=== PATIENT | male | born 1950 | race Caucasian/White ===

== ENCOUNTER 2022-12-09 09:18 | Outpatient (CLI) | payer BC, SELFPAY ==
[2022-12-09 13:59] LABS: Chloride* 104 mmol/L (96-114); Potassium* 4.6 mmol/L (3.6-5.1); Sodium* 136 mmol/L (135-149)
[2022-12-09 14:01] LABS: Alanine Aminotransferase* 43 U/L (4-50); Carbon Dioxide* 28 mmol/L (20-32); Cholesterol* 146 mg/dL (90-199); Estimated Glomerular Filt Rate 80 ml/min
[2022-12-09 14:02] LABS: Blood Urea Nitrogen* 17 mg/dL (7-30); Calcium* 9.2 mg/dL (8.4-10.6); Glucose* 257 mg/dL (60-115); HDL Cholesterol* 94 mg/dL (>=40); LDL Cholesterol Calculated 35 mg/dL (<100); Triglycerides* 83 mg/dL (40-149)
== END 2022-12-09 09:19 | disposition home or self-care (01) ==
PROVIDERS: PCP Family Medicine; Visit Provider Family Medicine
DX: Z00.00 Encounter for general adult medical examination without abnormal findings (principal); I10 Essential (primary) hypertension; E78.5 Hyperlipidemia, unspecified; E11.9 Type 2 diabetes mellitus without complications; K76.0 Fatty (change of) liver, not elsewhere classified; N40.0 Benign prostatic hyperplasia without lower urinary tract symptoms
CPT/HCPCS: 80048; 80061; 84460

== ENCOUNTER 2023-08-14 07:02 | Outpatient (CLI) | payer MEDICARE, BC, SELFPAY ==
--- NOTE | 2023-08-14 07:15 | CRLHL7_ITS ---
For Patients: As a result of the Century Cures Act, medical imaging exams and procedure reports are released immediately into your electronic medical record. You may view this report before your referring provider. If you have questions, please contact your health care provider. Indication: Pain in right knee Technique: Multiplanar multi sequence MRI of the right knee without contrast Comparison: Radiographs 07/29/2023 Findings: Image quality degraded by motion artifact. Medial compartment: Medial meniscus: Intrasubstance degeneration with hyperintense signal extending to the superior articular surface at the junction of the body and anterior horn, compatible with a degenerative tear. Articular cartilage: No chondral defects Lateral compartment: Lateral meniscus: Intrasubstance degeneration and complex but predominantly horizontal longitudinal tear of the body segment with extent to the anterior horn. Articular cartilage: Mild surface irregularity of the articular cartilage in the lateral compartment (grade 2). Patellofemoral compartment: Mild diffuse chondral thinning with areas of surface irregularity, including use of grade 2 and 3 chondral fissuring over the medial patellar facet. Ligaments: Hyperintense thickening of the ACL in a pattern compatible with mucoid degeneration. PCL intact. MCL intact. Mild degeneration of the femoral insertions of the fibular collateral ligament and popliteus tendon. Extensor mechanism: Distal quadriceps tendon and patellar tendon intact. Medial and lateral patellar restraints intact. No significant patellar subluxation. Joint spaces: Moderate joint effusion with mild synovitis. No intra-articular bodies. Bones and soft tissues: No fracture or osteonecrosis. No Del Rio`s cyst. Mild nonspecific prepatellar subcutaneous edema Impression: 1. Degenerative-type tears of the medial and lateral menisci. 2. 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 3. Mucoid degeneration of the ACL. 4. Moderate knee joint effusion with mild synovitis. Dictated by Juan Pablo Bauer MD @ 08/14/2023 12:51:33 PM (Electronically Signed)
== END 2023-08-14 07:03 | disposition home or self-care (01) ==
LOC: MRI 07:04
PROVIDERS: PCP Family Medicine; Visit Provider Family Medicine
DX: M25.561 Pain in right knee (principal); S83.281A Other tear of lateral meniscus, current injury, right knee, initial encounter; S83.241A Other tear of medial meniscus, current injury, right knee, initial encounter; M25.461 Effusion, right knee; M22.41 Chondromalacia patellae, right knee
CPT/HCPCS: 73721

== ENCOUNTER 2023-09-25 08:16 | Outpatient (CLI) | payer MEDICARE, BC, SELFPAY | END 2023-09-25 08:17 | disposition home or self-care (01) | PROVIDERS: PCP Family Medicine; Visit Provider Family Medicine | DX: I10 Essential (primary) hypertension (principal); E11.9 Type 2 diabetes mellitus without complications; Z79.4 Long term (current) use of insulin | CPT/HCPCS: 80048; 85025 ==

== ENCOUNTER 2023-10-09 09:45 | Day surgery (SDC) | payer MEDICARE, BC, SELFPAY ==
[2023-10-09] VITALS (13 sets, daily range): BP systolic 102–158; BP diastolic 66–95; PULSE 56–64; RESP 14–20; TEMP 36.3–36.6; O2SAT 93–99; BMI 32.5
[2023-10-09] MEDS: LACTATED RINGERS 1000 ML 1,000 ML 100 ML IV (10:10)
[2023-10-09] MEDS: SODIUM CHLORIDE 0.9 % (FLUSH) 10 ML SYRINGE IVF (10:10)
[2023-10-09] MEDS: CEFAZOLIN 2 GM INJ IVP (11:57)
--- NOTE | 2023-10-09 12:05 | SUR.OPER ---
PATIENT QUESTIONS ANSWERED SATISFACTORILY PREOPERATIVELY.? PATIENT BROUGHT TO OR #2 PER CART.? Patient positioned supine on OR #2 bed.? The perioperative?team supported arms bilaterally on arm boards.? Final approval of positioning by surgeon.? CONTINUOUS IRRIGATION OF THE RIGHT KNEE DURING THE PROCEDURE WITH NACL.
[2023-10-09] MEDS: BUPIVACAINE 0.25% 30 ML INJECTION (12:26)
--- NOTE | 2023-10-09 12:39 | P.ORPRC_ITS ---
Procedure Note Date of procedure: 10/09/23 Procedure: PREOPERATIVE DIAGNOSIS: Right knee lateral and medial meniscus tear POSTOPERATIVE DIAGNOSIS: Right knee lateral meniscus tear NAME OF OPERATION: Right knee arthroscopic partial lateral meniscectomy SURGEON: Josh Rueda MD DIRECTOR OF EVENT SALES: Kiara Youngblood PA-C ANESTHESIA: Spinal ESTIMATED BLOOD LOSS: 0 mL COMPLICATIONS: None SPECIMENS: None DRAINS: None PREOPERATIVE ANTIBIOTICS: Ancef 2 gram INDICATIONS: The patient is a 72-year-old with a history of right knee lateral pain. MRI scan is consistent with a medial and lateral meniscus tear. Despite appropriate nonoperative management, including activity modification, antiinflammatories, [id number] pain medication, bracing, physical therapy, and injections they continue to have pain and disability. Operative intervention was offered. The risks, benefits and expected outcomes were discussed in detail. These included but were not limited to: Infection, bleeding, injury to blood vessel or nerve, venous thromboembolism. All questions were answered to their satisfaction. PROCEDURE: Spinal anesthesia was administered. The patient was placed supine on the operating room table. The right lower extremity was prepped and draped in the usual sterile fashion. The limb was exsanguinated with the Gerson bandage. The pneumatic tourniquet was inflated to 300 mmHg. A standard anterolateral portal was established. The arthroscope was introduced. The working portal was established anteromedially. Diagnostic arthroscopy was performed with findings as follows: The suprapatellar pouch is normal. Articular surface on the patella shows focal grade 3 loom changeover operator the median ridge. Articular surface on the trochlea diffuse grade 2/3 change. The medial gutter is normal. The medial compartment shows grade 1/2 change on both sides of the joint. The medial meniscus is normal, without an obvious tear. The notch shows the ACL to be intact. The lateral compartment shows a focal area of grade 2/3 change on the lateral femoral condyle, diffuse grade 2 change on the lateral tibial plateau. The lateral meniscus has a complex degenerative tear of the midbody, into the anterior horn. This primarily consists of superior articular surface degenerative fraying and tearing with more substantial horizontal cleavage tearing. The lateral gutter is normal. The midbody and anterior horn of the lateral meniscus were debrided with an angled basket and lisa through both portals, taken to a stable base. Unstable chondral flaps on the patella were debrided with the shaver. Arthroscopic instruments were removed, the portal sites were Steri-Stripped closed, the knee was infiltrated with 30 mL of 0.25% Marcaine without epinephrine. A dry dressing was applied, the tourniquet was released. Sponge and needle counts were correct x 2. The patient tolerated the procedure well. There were no apparent complications. They were carefully transferred to the hospital bed and taken to the postanesthesia care unit in satisfactory condition. PLAN: The patient will be discharged to home. They may weightbear as tolerates. Range of motion will be unrestricted. They will follow up in the office next week for a wound check.
--- NOTE | 2023-10-09 12:45 | W.ANESCHARGE ---
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
--- NOTE | 2023-10-09 12:49 | W.ANESCHARGE ---
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
== END 2023-10-09 14:34 | disposition home or self-care (01) ==
PROVIDERS: PCP Family Medicine; Visit Provider Orthopaedic Surgery
PROC: (CPT 29870; principal; 2023-10-09 11:30)
DX: M23.241 Derangement of anterior horn of lateral meniscus due to old tear or injury, right knee (principal)
CPT/HCPCS: 29881; 01400; 82962; 99100; J0665; J0690; J1100; J2250; J2405; J2704; J3010; J7120

== ENCOUNTER 2023-12-25 07:44 | Outpatient (CLI) | payer MEDICARE, BC, SELFPAY ==
--- NOTE | 2023-12-25 09:56 | P.ANES_ITS ---
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
--- NOTE | 2023-12-25 10:14 | W.ANESCHARGE ---
Anesthesia Charges Start Date/Time Anesthesia Start Date: 12/25/23 Anesthesia Start Time: 08:48 Stop Date/Time Anesthesia Stop Date: 12/25/23 Anesthesia Stop Time: 09:55 Summary Extremes of Age - Over 70 or under 1: MDA
== END 2023-12-25 07:45 | disposition home or self-care (01) ==
LOC: OP CLINIC 07:44
PROVIDERS: PCP Family Medicine; Visit Provider Surgery
DX: Z12.11 Encounter for screening for malignant neoplasm of colon (principal); K63.5 Polyp of colon; Z86.010 Personal history of colon polyps
CPT/HCPCS: 00811; 45381; 45385; 88305; 99100; J2704

== ENCOUNTER 2024-01-28 08:42 | Outpatient (CLI) | payer MEDICARE, BC, SELFPAY ==
--- OUTSIDE RECORDS SUMMARY | 2024-01-28 08:46 | XMS_ITS | Referral Summary ---
Author Name Unknown Organization [facility] Address [address] [place] [address]. [place] [address] Care Team Providers Care Manager Laboratory Name Role Phone Lamberto Padilla Primary Care Provider [phone] Allergies Active Allergy Reactions Criticality Noted Date Comments Jett Inhibitors Cough 05/10/2022 Medications Medication Sig Dispensed Refills Start Date End Date Status aspirin 81 MG EC tablet Take 81 mg by mouth daily Active atorvastatin (LIPITOR) 40 MG tablet Take 40 mg by mouth daily Active glimepiride (AMARYL) 4 MG tablet Take 4 mg by mouth every morning (before breakfast) 2 tabs Active losartan (COZAAR) 100 MG tablet Take 100 mg by mouth daily Active metFORMIN (GLUCOPHAGE) 500 MG tablet Take 500 mg by mouth daily (with breakfast) 4 tabs ( 2,000 mg) Active multivitamin w/minerals (THERA-VIT-M) tablet Take 1 tablet by mouth daily Active sertraline (ZOLOFT) 100 MG tablet Take 100 mg by mouth daily 2 tabs Active phenazopyridine (PYRIDIUM) 100 MG tabletIndications:H istory of biopsy of bladder Take 2 tablets (200 mg) by mouth 3 times daily as needed for urinary tract discomfort 9 tablet 05/13/2022 Active celecoxib (CELEBREX) 100 MG capsuleIndications: History of biopsy of bladder Take 1 capsule (100 mg) by mouth 2 times daily 14 capsule 05/13/2022 Active Active Problems Problem Noted Date Diagnosed Date History of biopsy of bladder 05/13/2022 Social History Tobacco Use Types Packs/Day Years Used Date Smoking Tobacco: Some Days Smokeless Tobacco: Never Alcohol Use Standard Drinks/Week Comments Yes 0 (1 standard drink = 0.6 oz pur e alcohol) 4-5 drinks 2 days per week Adolescent Education Answer Date Record ed Getting School Help Needed Not on file 07/13 Sex and Gender Information Value Date Recorded Sex Assigned at Not on file Gender Identity Not on file Sexual Orientation Not on file Last Filed Vital Signs Vital Sign Reading Time Taken Comments Blood Pressure 126/72 05/13/2022 9:38 AM CDT Pulse 65 05/13/2022 9:38 AM CDT Temperature 36.7 ??C (98 ??F) 05/13/2022 9:38 AM CDT Respiratory Rate 14 05/13/2022 9:38 AM CDT Oxygen Saturation 96% 05/13/2022 9:38 AM CDT Inhaled Oxygen Concentration - - Weight 96.7 kg (213 lb 1.6 oz) 05/13/2022 5:53 A M CDT Height 175.3 cm (5' 9) 05/13/2022 5:53 AM CDT Body Mass Index 31.47 05/13/2022 5:53 AM CDT Plan of Treatment Not on file Procedures Procedure Name Priority Date/Time Associated Diagnosis Comments GLUCOSE STAT 05/13/2022 6:02 AM CDT from Last 3 Months or Most Recently Relevant to Health Maintenance Results * (ABNORMAL) Glucose (05/13/2022 6:02 AM CDT) [facility] Signature Glucose 192(H) 70 - 99 mg/dL 05/13/2022 7:05 AM CDT LABORATORY Patient Fasting > 8hrs? Yes 05/13/2022 7:05 AM CDT LABORATORY Blood STRUCTURE OF RIGHT UPPER LIMB / Unknown Venipuncture / Unknown 05/13/2022 6:02 AM CDT 05/13/2022 6:25 AM CDT Mamadou Abarca MD LAB - BLOOD ORDERABL ES LABORATORY [facility] [address], [address] [place] [address], [place] [phone] from Last 3 Months or Most Recently Relevant to Health Maintenance Care Teams Manager Laboratory Relationship Specialty Start Date End Date Lamberto Padilla [address] [place], [place] [id number] PCP - General Family Medicine 04/23/22
--- OUTSIDE RECORDS SUMMARY | 2024-01-28 08:46 | XMS_ITS | Clinical Summary ---
Author Name Unknown Organization [facility] Address [address] [place] [address]. [place] [address] Care Team Providers Care Criminal Justice Faculty Name Role Phone Lamberto Padilla Primary Care Provider [phone] Allergies Active Allergy Reactions Criticality Noted Date [...] 05/13/2022 5:53 AM CDT Plan of Treatment Health Maintenance Due Date Last Done Comments ADVANCE CARE PLANNING 1950 ANNUAL REVIEW OF HM ORDERS 1950 CT COLONOGRAPHY 1951 FIT 1951 FLEX SIG 1951 LIPID 1951 sDNA (Cologuard) 1951 COLONOSCOPY 1961 COLORECTAL CANCER SCREENING 1961 HEPATITIS C SCREENING 1969 LUNG CANCER SCREENING 2001 RSV VACCINE ( & 60+) (1 - 1-dose 60+ series) 2011 FALL RISK ASSESSMENT 2016 MEDICARE ANNUAL WELLNESS VISIT 2016 COVID-19 Vaccine (2022- season) 2023 09/04/2022, 02/23/2022, 07/03/2021, Additional history exists INFLUENZA VACCINE (#1) 2023 , 08/06/2021, 08/06/2021, Additional history exists PHQ-2 (once per calendar year) 2023 GLUCOSE 05/13/2025 05/13/2022 DTAP/TDAP/TD IMMUNIZATION (2 - Td or Tdap) 11/06/2025 11/06/2015, 08/13/2005 Pneumococcal Vaccine: 65+ Years Completed 12/07/2018, 06/23/2017 ZOSTER IMMUNIZATION Completed 09/20/2020, 07/22/2020, 05/15/2012 HPV IMMUNIZATION Aged Out No longer e ligible based on patient's age to complete this topic IPV IMMUNIZATION Aged Out No longer e ligible based on patient's age to complete this topic MENINGITIS IMMUNIZATION Aged Out No l onger eligible based on patient's age to complete this topic RSV MONOCLONAL ANTIBODY Aged Out No l onger eligible based on patient's age to complete this topic Procedures Procedure Name Priority Date/Time Associated Diagnosis Comments GLUCOSE STAT 05/13/2022 6:02 AM CDT from Last 3 Months or Most Recently Relevant to Health Maintenance Results * (ABNORMAL) Glucose (05/13/2022 6:02 AM CDT) Glucose 192(H) 70 - 99 mg/dL 05/13/2022 7:05 AM CDT LABORATORY Patient Fasting > 8hrs? Yes 05/13/2022 7:05 AM CDT LABORATORY Blood STRUCTURE OF RIGHT UPPER LIMB / Unknown Venipuncture / Unknown 05/13/2022 6:02 AM CDT 05/13/2022 6:25 AM CDT Mamadou Abarca MD LAB - BLOOD ORDERABL ES LABORATORY [facility] [address], [address] [place] [address], [facility] [phone] from Last 3 Months or Most Recently Relevant to Health Maintenance Care Teams Criminal Justice Faculty Relationship Specialty Start Date End Date Lamberto Padilla [address] [place] [address] PCP - General Family Medicine 04/23/22
--- OUTSIDE RECORDS SUMMARY | 2024-01-28 08:46 | XMS_ITS | Clinical Summary ---
Author Name Unknown Organization [employer] Address [place], [place] [address] Care Team Providers Care Ice Cream Server Name Role Phone Unavailable Primary Care Provider Unavailabl e Allergies Active Allergy Reactions Criticality Noted Date Comments Jett Inhibitors Cough 12/15/2008 Medications Medication Sig Dispensed Refills Start Date End Date Status MULTIVITAMIN TAB take 1 tablet by oral route once daily with food 0 02/05/2007 Active ASPIRIN 81 MG TAB, DELAYED RELEASEIndications:R outine general medical examination at a health care facility take 1 tablet (81mg) by oral route once daily 0 02/05/2007 Active blood-glucose meterIndications:Unc ontrolled type 2 diabetes mellitus without complication, without long-term current use of insulin Dispense meter, test strips, lancets covered by pt ins. E11.65 NIDDM type II, uncontrolled - Test 2 times/day. Reason: High A1C 1 Device 11/21/2016 Active lancetsIndications:U ncontrolled type 2 diabetes mellitus without complication, without long-term current use of insulin Dispense item covered by pt ins. E11.65 NIDDM type II, uncontrolled - Test 2 times/day. Reason: High A1C 100 Each 12 12/07/2018 Active sertraline (ZOLOFT) 100 mg tabletIndications:Dy sthymia Take 2 Tablets (200 mg) by mouth once daily. 180 tablet. 3 12/06/2021 Active metFORMIN (GLUCOPHAGE XR) 500 mg Extended-Release tabletIndications:Co ntrolled type 2 diabetes mellitus without complication, without long-term current use of insulin (HC) Take 4 Tablets (2,000 mg) by mouth once daily. 360 tablet. 3 12/06/2021 Active losartan (COZAAR) 100 mg tabletIndications:Es sential hypertension Take 1 Tablet (100 mg) by mouth once daily. 90 Tablet 3 12/06/2021 Active glimepiride (AMARYL) 4 mg tabletIndications:Co ntrolled type 2 diabetes mellitus without complication, without long-term current use of insulin (HC) Take 2 Tablets (8 mg) by mouth once daily with a meal. 180 tablet. 3 12/06/2021 Active blood sugar diagnostic (CenturyLinkTouch Ultra Test) stripIndications:Con trolled type 2 diabetes mellitus without complication, without long-term current use of insulin (HC) TEST ONCE A DAY 100 Each 3 12/06/2021 Active varenicline (CHANTIX DOSEPAK) 0.5 mg (11)- 1 mg (42) tabletIndications:To bacco use Days 1-3 take 0.5mg once daily; Days 4-7 take 0.5mg twice daily; then increase to 1mg twice daily. Take with meals. 1 Packet 09/16/2022 Active varenicline (CHANTIX) 1 mg tabletIndications:To bacco use Take 1 mg by mouth two times daily with meals. 84 Tablet 1 09/16/2022 Active atorvastatin (LIPITOR) 40 mg tabletIndications:Es sential hypertension,Hyperli pidemia, unspecified hyperlipidemia type TAKE 1 TABLET(40 MG) BY MOUTH AT BEDTIME 60 Tablet 04/01/2023 Active Active Problems Problem Noted Date Diagnosed Date Controlled type 2 diabetes m ellitus without complication, without long-term current use of insulin 03/05/2017 Hyperlipidemia 11/06/2015 Hypertension 11/06/2015 Colon polyps 11/16/2013 Major depressive disorder, single episode, mild 11/05/2007 Benign neoplasm of colon 02/08/2007 Overview: Colonoscopy due 11/19 Insomnia, unspecified 02/08/2007 Plantar fascial fibromatosis 02/03/2007 History of abdominal pain History of colon polyps Resolved Problems Problem Noted Date Diagnosed Date Resolved Date Uncontrolled type 2 diabetes mellitus without complication, without long-term current use of insulin 11/22/2016 03/05/2017 Right inguinal hernia 11/25/20142016 Other and unspecified hyperlipidemia 12/09/2007 11/06/2015 Unspecified essential hypertension 02/08/2007 11/06/2015 Type 2 Diabetes A1C <7.5 02/08/200705/2011 Encounters Date Type Department Care Team Description 12/25/2023 Lab Requisition [facility] [phone] Calvin Shahid MD from Last 3 Months Immunizations Name Administration Dates Next Due COVID-19 vaccine ([employer] 30mcg/0.3mL) AIDE HERRON 12/25/2020,12/01/2020 Hepatitis A (Adult) 05/25/2020,02/16/2019 Influenza, IIV3 (Age >=3 years) 08/19/2013,11/06,08/01/2009 Influenza, IIV4 11/18/2016,07/19/2014 Influenza, Inactivated AIIV4 (Age 65+ Years) Preserv Free 08/06/2021,07/22/2020 Influenza, Inactivated IIV3 (Age 65+ Years) Preserv Free 07/19/2019,06/16/2018,06/23/2017 Pneumococcal Poly,23-Valent (Pneumovax) 12/08/19 19 Pneumococcal conj 13-Valent (Prevnar 13) 017 Td (Age >=7 Years) 08/13/2005 Tdap 11/06/2015 Typhoid (injectable) 02/16/2019 Zoster (Shingrix-RZV, recombinant) 09/20/2020, Zoster (Zostavax-ZVL, live) 05/15/2012 Family History Medical History Relation Name Comments Diabetes Brother 1 Ja [facility] Brother 2 Casey Liver disease Brother 2 Casey liver transpla [facility] Brother 3 Cameron Cancer Father Throat/Lung Cancer Mother Luekemia Cancer Sister 1 Laura lung cancer Cancer-breast Sister 1 Laura Lung cancer Sister 1 Laura Diabetes Sister 2 Ronit Relation Name Status Comments Brother 1 Ja Alive Brother 2 Casey Alive Brother 3 Cameron Alive Father Mother Sister 1 Laura Alive Sister 2 Ronit Alive Social History Tobacco Use Types Packs/Day Years Used Date Smoking Tobacco: Some Days Cigarettes Last attempted to quit: 06/06/2017 Smokeless Tobacco: Never Tobacco Cessation:Ready to Q uit: Yes; Counseling Given: No Comments:Quit June 15 2017 Alcohol Use Standard Drinks/Week Comments Yes 0 (1 standard drink = 0.6 oz pur e alcohol) 4-5 drinks 2 days per week PHQ-2 Answer Date Recorded PHQ-2 TOTAL SCORE 0 01/03/2022 Social Connections Answer Date Recorded Frequency of Communication with Friends and Fami ly Not on file 02/03/2023 Alcohol Use Answer Date Recorded How often do you have a drink containing alcohol ? 2 04/03/2022 How many drinks containing a lcohol do you have on a typical day when you are drinking? 1 04/03/2022 How often do you have five or more drinks on one occasion? 2 04/03/2022 Financial Resource Strain Answer Date R ecorded Difficulty of Paying Living Expenses 3 01/17/2022 Difficulty of Paying Living Expenses Not on file 01/17/2022 Food Insecurity Answer Date Recorded Worried About Running Out of Food in the Last Ye ar 1 01/17/2022 Transportation Needs Answer Date Record ed Lack of Transportation (Medical) 1 01/17/2022 Housing Stability Answer Date Recorded Unable to Pay for Housing in the Last Year 1 01/17/2022 Sex and Gender Information Value Date Recorded Sex Assigned at Not on file Gender Identity Not on file Sexual Orientation Not on file Obstetrics History Last Filed Vital Signs Vital Sign Reading Time Taken Comments Blood Pressure 104/60 05/06/2022 11:36 AM CDT Pulse 69 05/06/2022 11:36 AM CDT Temperature 36.7 ??C (98 ??F) 05/06/2022 11:36 AM CDT Respiratory Rate 20 05/06/2022 11:36 AM CDT Oxygen Saturation 97% 05/06/2022 11:36 AM CDT Inhaled Oxygen Concentration - - Weight 95.7 kg (211 lb) 05/06/2022 11:36 AM CDT Height 173.5 cm (5' 8.31) 05/06/2022 11:36 AM C DT Body Mass Index 31.79 05/06/2022 11:36 AM CDT Plan of Treatment Health Maintenance Due Date Last Done Comments Depression screening for age 12+ 01/04/2023 01/04/2022, 01/03/2022, 01/10/2021, Additional history exists BMI (ht and wt on same day) for age 18+ 05/06/2023 05/06/2022, 03/13/2022, 01/03/2022, Additional history exists COVID-19 vaccine series ( season) 2023 02/23/2022, 07/03/2021, 12/25/2020, Additional history exists Colonoscopy through age 75 12/11/202312/10, 12/09/2013, 12/09/2013, Additional history exists Influenza for age 65+ 06/06/2024 08/06/2021 , 07/22/2020, 07/19/2019, Additional history exists Tetanus booster 11/06/2025 11/06/2015, 08/13/2005 Lipids for age 45-75 12/06/2026 12/06/2021, 01/09/2021, 05/25/2020, Additional history exists Tdap Completed 11/06/2015 Pneumococcal series for age 65+ Completed 9, 06/23/2017 Hepatitis C screening for ag e 18-79 Completed 05/25/2020 Zoster (shingles) series for age 50+ Completed 09/20/2020, 07/22/2020, 05/15/2012 Medical Devices Implanted Type 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 Painting Supervisor Device Identifier Shelf Expiration Date Model / Serial / Lot Mesh Surgical 3in X 6in - [id number] Implanted:Qty: 1 on 12/06/2014 by Jaxon Adams MD at [facility] D-[employer] 08/05/2019 [id number] / / [id number] Procedures Procedure Name Priority Date/Time Associated Diagnosis Comments LAB TRACKING EVENT Routine 12/25/2023 9: 45 AM CDT PATH TISSUE EXAM Routine 12/25/2023 9:45 AM CDT LIPID PANEL W REFLEX MEASURED LDL Routine 12/06/2021 1:51 PM NOVELTY TWISTER OPERATOR Hyperlipidemia, unspecified hyperlipidemia type ANTI HCV Routine 05/25/2020 8:17 AM CDT Routine general medical examination at a [facility] care facility COLONOSCOPY 12/10/2018 10:48 AM NOVELTY TWISTER OPERATOR from Last 3 Months or Most Recently Relevant to Health Maintenance Results * LAB TRACKING EVENT (12/25/2023 9:45 AM CDT) Other (Other) Client Collect / Unknown 12/25/2023 9:45 AM CDT 12/25/2023 9:24 PM CDT Calvin Shahid MD LAB BILL ONLY [facility] [address] [place] [address], * PATH TISSUE EXAM (12/25/2023 9:45 AM CDT) Case Report Pathology Report ?Case: [id number] ? Authorizing Provider: ??Calvin Shahid MD ?Collected: ? 12/25/2023 0945 ? Ordering Location: ? [facility] ?Received: ?12/26/2023 0911 ? Pathologist: ? Aidee Mansfield, DO ? Specimens: ?? A) - Cecal Polyp ? B) - Ascending Colon Polyp ? C) - Hepatic Flexure Polyp ? D) - Transverse Colon Polyp ? E) - Transverse Colon Polyp ? F) - Sigmoid Polyp ? G) - Rectal Polyp ? 12/29/2023 4:59 PM CDT [facility]AT[facility]-C ENTRAL LABORATORY Final Diagnosis A) COLON, CECUM, POLYPECTOMIES: 1. Tubular adenomas (6) 2. Negative for high grade dysplasia 3. Per the colonoscopy report: ?? a. Polyp sizes: 4 mm - 6 mm ?? b. Resection: Complete ?? c. Retrieval: Complete B) COLON, ASCENDING, POLYPECTOMIES: 1. Tubular adenomas (6) 2. Negative for high grade dysplasia 3. Per the colonoscopy report: ?? a. Polyp sizes: 3 mm - 6 mm ?? b. Resection: Complete ?? c. Retrieval: Complete C) COLON, HEPATIC FLEXURE, POLYPECTOMIES: 1. Tubular adenomas (3) 2. Negative for high grade dysplasia 3. Per the colonoscopy report: ?? a. Polyp sizes: 3 mm - 5 mm ?? b. Resection: Complete ?? c. Retrieval: Complete D) COLON, TRANSVERSE, POLYPECTOMIES: 1. Tubular adenomas (2) and separate fragments of normal colonic mucosa (clinically, 3 polyps) 2. Negative for high grade dysplasia 3. Per the colonoscopy report: ?? a. Polyp sizes: 3 mm - 5 mm ?? b. Resection: Complete ?? c. Retrieval: Complete E) COLON, TRANSVERSE, POLYPECTOMY: 1. Tubular adenoma consistent with advanced adenoma due to size (see comment) 2. Negative for high grade dysplasia and malignancy 3. Per the colonoscopy report: ?? a. Polyp size: 14 mm ?? b. Resection: Complete ?? c. Retrieval: Complete F) COLON, SIGMOID, POLYPECTOMY: 1. Tubular adenoma 2. Negative for high grade dysplasia 3. Per the colonoscopy report: ?? a. Polyp size: 8 mm ?? b. Resection: Complete ?? c. Retrieval: Complete G) RECTUM, POLYPECTOMIES: 1. Hyperplastic polyps (2 fragments received) 12/29/2023 4:59 PM CDT [facility] Comment E) Advanced adenoma of the colorectum is defined by the [employer] (ACG) as an adenoma that is 1 cm or more in size, contains an appreciable villous component, or has high grade dysplasia (Carleen Urbina [2008] Gastroenterology, PMID - [id number]). Patients with advanced adenomas are at an increased risk for synchronous and metachronous additional advanced adenomas. Appropriate follow-up is suggested. A-F) We are aware of the patient now having at least 20 adenomatous polyps of the colon (considering current biopsies and prior material, see ??[id number]). ?? Consideration for a referral to a genetics specialist for possible genetic testing to evaluate for a potential polyposis syndrome (attenuated familial adenomatous polyposis or MYH polyposis in particular) is reasonable as the results may have implications for both the patient and immediate family members. ?? Reference: Alena Hillman. When Should Patients Undergo Genetic Testing for Hereditary Colon Cancer Syndromes? Clin Gastroenterol Hepatol. 2018 Nov;16(2):181-183. Epub 2016Aug 15. PMID: [id number]. 12/29/2023 4:59 PM CDT [facility] Clinical Information Mr. Godfrey is a 73 y.o. who presents for colonoscopy examination. Multiple polyps were identified. 12/29/2023 4:59 PM CDT 20/20 [employer] Gross Description A) Received in formalin is a 2.8 x 2.5 x 0.4 cm aggregate of nance mucosal fragments. ??The specimen is entirely submitted in 1 cassette. ??It is labeled with the patient's name and designated cecum. B) Received in formalin are multiple (approximately 18) nance-pink soft tissues averaging 3 mm. Entirely submitted in toto in 2 cassettes. It is labeled with the patient's name and designated ascending. C) Received in formalin are 11 nance mucosal fragments ranging from 2 mm to 7 mm in greatest dimension, which are entirely submitted in one cassette. It is labeled with the patient's name and designated hepatic flexure. D) Received in formalin are multiple (approximately 15) nance-pink soft tissues averaging 4 mm. Entirely submitted in toto in 2 cassettes. It is labeled with the patient's name and designated transverse colon . E) Received in formalin are multiple (approximately 12) nance-pink soft tissues averaging 3 mm. Entirely submitted in toto in 2 cassettes. It is labeled with the patient's name and designated jar #5 transverse colon polyp. F) Received in formalin is a 14 x 7 x 4 mm pink-nance rubbery polyp. Apparent base is inked and polyp is sectioned. Tissue is entirely submitted in 1 cassette. It is labeled with the patient's name and designated sigmoid polyp. G) Received in formalin are 2 nance mucosal fragments ranging from 5 mm to 8 mm in greatest dimension, which are entirely submitted in one cassette. It is labeled with the patient's name and designated rectum. Tadeo Carter 12/26/2023 1:46 PM 12/29/2023 4:59 PM CDT [facility] Microscopic Description The final diagnosis is based on microscopic examination of appropriate sections of all specimens. 12/29/2023 4:59 PM CDT [facility]-C ENTRAL LABORATORY Additional Information Interpreted at [facility] - [address] [facility] [address], [place] [address] 12/29/2023 4:59 PM CDT [facility] Other (Cecal Polyp) 12/25/2023 9:45 AM CDT 12/26/2023 9:11 AM CDT Specimen (specimen) (Ascending Colon Polyp) 12/25/2023 9:45 AM CDT 12/26/2023 9:11 AM CDT Specimen (specimen) (Hepatic Flexure Polyp) 12/25/2023 9:45 AM CDT 12/26/2023 9:11 AM CDT Specimen (specimen) (Transverse Colon Polyp) 12/25/2023 9:45 AM CDT 12/26/2023 9:11 AM CDT Specimen (specimen) (Transverse Colon Polyp) 12/25/2023 9:45 AM CDT 12/26/2023 9:11 AM CDT Specimen (specimen) (Sigmoid Polyp) 12/25/2023 9:45 AM CDT 12/26/2023 9:11 AM CDT Specimen (specimen) (Rectal Polyp ) 12/25/2023 9:45 AM CDT 12/26/2023 9:11 AM CDT Calvin Shahid MD PATHOLOGY/CYTOLOGY [facility] [address] [place] [address], * LIPID PANEL W REFLEX MEASURED LDL (12/06/2021 1:51 PM NOVELTY TWISTER OPERATOR) CHOLESTEROL,TOTAL 142 100 - 199 mg/dL 12/06/2021 2:35 PM NOVELTY TWISTER OPERATOR [facility] TRIGLYCERIDES 86 <150 mg/dL 12/06/2021 2:35 PM NOVELTY TWISTER OPERATOR [facility] HDL CHOLESTEROL 68 >40 mg/dL 2:35 PM NOVELTY TWISTER OPERATOR [facility] NON-HDL CHOLESTEROL 74 <145 mg/dl 12/06/2021 2:35 PM [facility] CHOL/HDL RATIO 2.09 <4.50 12/06/2021 2:35 PM [facility] LDL CHOLESTEROL 57 <=130 mg/dL 12/06/2021 2:35 PM [facility] VLDL CHOLESTEROL 17 <=30 mg/dL 12/06/2021 2:35 PM [facility] PROVIDER ORDERED STATUS RANDOM 12/06/2021 2:35 PM [facility] Blood BLOOD SPECIMEN / Unknown Venipuncture / Unknown 12/06/2021 1:51 PM NOVELTY TWISTER OPERATOR 12/06/2021 1:54 PM NOVELTY TWISTER OPERATOR Lamberto Padilla MD CHEMISTRY Performing Organization Address City/[facility]/ZIP Co de Phone Number [facility] [address] [place] [address] * ANTI HCV (05/25/2020 8:17 AM CDT) HEPATITIS C ANTIBODY Non-React jayesh Non-React jayesh 05/25/2020 4:33 PM CDT [facility] Comment:Antibodies to HCV no t detected; does not exclude the possibility of exposure to HCV. Blood BLOOD SPECIMEN / Unknown Venipuncture / Unknown 05/25/2020 8:17 AM CDT 05/25/2020 8:20 AM CDT Lamberto Padilla MD SEND OUTS [facility] [address] [place] [address], * COLONOSCOPY (12/10/2018 10:48 AM NOVELTY TWISTER OPERATOR) 12/10/2018 10:4 8 AM NOVELTY TWISTER OPERATOR Narrative Transcriptions Jaxon Adams MD - 12/10/2018 11:52 AM CST Patient Name: Florentino Godfrey Procedure Date: 12/10/2018 Gender: Male Date of : 1950 Admit Type: Ambulatory Procedure: Colonoscopy Proceduralist: Jaxon Newmna Indications/Pre-Op Diagnosis: High risk colon cancer surveillance:Personal history of colonic polyps Medications: Midazolam 5 mg IV, Fentanyl 100 microgramsIV Procedure Description: The patient had risks, benefits and alternatives explained to andgave informed consent. The patient had a stable cardiopulmonary status and judged an adequate candidate for conscious sedation. The colonoscope was passed through the anus and advanced to 5 cm into the ileum. The colonoscopy was performed without difficulty. Thepatient tolerated the procedure well. The quality of the bowel preparationwas good. The terminal ileum, ileocecal valve, appendiceal orifice, and rectum were photographed. Complications: No immediate complications. Estimated Blood Loss & Specimen: Estimated blood loss: none. Specimen collected - Yes and sent to Laboratory Findings: The perianal and digital rectal examinations were normal. A 4 mm polyp was found in the proximal ascending colon. The polyp was sessile. The polyp was removed with a hot snare. Resection andretrieval were complete. Two sessile polyps were found in the hepatic flexure. The polyps were3 to 7 mm in size. These polyps were removed with a hot snare.Resection and retrieval were complete. Normal mucosa was found in the entire colon. Biopsies for histologywere taken with a cold forceps from the ascending colon and descendingcolon for evaluation of microscopic colitis. Retroflexion in the right colon was performed. The retroflexed view of the distal rectum and anal verge was normaland showed no anal or rectal abnormalities. Impressions/Post-Op Diagnosis: - One 4 mm polyp in the proximal ascending colon, removed with a hot snare. Resected and retrieved. - Two 3 to 7 mm polyps at the hepatic flexure, removed with a hotsnare. Resected and retrieved. - Normal mucosa in the entire examined colon. Biopsied. Recommendation: - Discharge patient to home. - Resume previous diet. - Continue present medications. - Await pathology results. - Repeat colonoscopy in 5 years for surveillance. Moderate Sedation: Moderate (conscious) sedation was administered by the endoscopy nurse and supervised by the endoscopist. The following parameters were monitored: oxygen saturation, heart rate, respiratory rate, adequacyof pulmonary ventilation and reponse to care. Please refer to the patient's medical record flowsheets for moderate sedation details. Moderate (conscious) sedation was administered by the endoscopy nurse and supervised by the endoscopist. The patient's oxygen saturation, heart rate, blood pressure and response to care were monitored. Total physician intraservice time was 25 minutes. Jaxon Adams, 12/10/2018 11:52:08 AM This report has been signed electronically. 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
== END 2024-01-28 08:43 | disposition home or self-care (01) ==
PROVIDERS: PCP Family Medicine; Visit Provider Family Medicine
DX: E78.2 Mixed hyperlipidemia (principal); E11.9 Type 2 diabetes mellitus without complications; R53.83 Other fatigue; Z12.5 Encounter for screening for malignant neoplasm of prostate; C67.9 Malignant neoplasm of bladder, unspecified; Z79.4 Long term (current) use of insulin
CPT/HCPCS: 80048; 80061; 84443; 84460; G0103

== ENCOUNTER 2024-07-12 09:42 | Outpatient (CLI) | payer MEDICARE, BC, SELFPAY ==
--- OUTSIDE RECORDS SUMMARY | 2024-07-12 09:44 | XMS_ITS | Referral Summary ---
Author Organization [place] Address [address] [place] [address]. [place] [address] Care Team Providers Care Hip Hop Dance Instructor Name Role Phone Lamberto Padilla Primary Care Provider [phone] Allergies Active Allergy Reactions Criticality Noted Date [...] * (ABNORMAL) Glucose (05/13/2022 6:02 AM CDT) [facility] Signature Glucose 192(H) 70 - 99 mg/dL 05/13/2022 7:05 AM CDT LABORATORY Patient Fasting > 8hrs? Yes 05/13/2022 7:05 AM CDT LABORATORY Blood STRUCTURE OF RIGHT UPPER LIMB / Unknown Venipuncture / Unknown 05/13/2022 6:02 AM CDT 05/13/2022 6:25 AM CDT Mamadou Abarca MD LAB - BLOOD ORDERABL ES LABORATORY [facility] [address], [address] [place] [address], [place] [phone] from Last 3 Months or Most Recently Relevant to Health Maintenance Care Teams Hip Hop Dance Instructor Relationship Specialty Start Date End Date Lamberto Padilla [address] [place] [address] [phone] PCP - General Family Medicine 04/23/22
--- OUTSIDE RECORDS SUMMARY | 2024-07-12 09:44 | XMS_ITS | Clinical Summary ---
Author Organization [employer] Address [place], [place] [address] Care Team Providers Care Housecalls Nurse Name Role Phone Unavailable Primary Care Provider [...] tablet. 3 12/06/2021 Active blood sugar diagnostic (PockethernetTouch Ultra Test) stripIndications:Con trolled type 2 diabetes [...] mild 11/05/2007 Benign neoplasm of colon 02/08/2007 Overview (08/31/2013): Colonoscopy due 11/19 Insomnia, unspecified 02/08/2007 Plantar fascial fibromatosis 02/03/2007 History of abdominal pain History of colon polyps Resolved Problems Problem Noted Date Diagnosed Date Resolved Date Uncontrolled type 2 diabetes mellitus without complication, without long-term current use of insulin 11/22/2016 03/05/2017 Right inguinal hernia 11/25/20142016 Other and unspecified hyperlipidemia 12/09/2007 11/06/2015 Unspecified essential hypertension 02/08/2007 11/06/2015 Type 2 Diabetes A1C <7.5 02/08/200705/2011 Immunizations Name Administration Dates Next Due COVID-19 vaccine ([employer] 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 Brother 2 Casey Liver disease Brother 2 Casey liver transpla [facility] Brother 3 Cameron Cancer Father Throat/Lung Cancer [...] 05/06/2023 05/06/2022, 03/13/2022, 01/03/2022, Additional history exists Colonoscopy through age 75 12/11/202312/10, 12/09/2013, 12/09/2013, Additional history exists COVID-19 vaccine series ( season) 2024 02/23/2022, 07/03/2021, 12/25/2020, Additional history exists Influenza for age 65+ [...] 07/22/2020, 05/15/2012 Medical Devices Implanted Type Area Record Press Tender Device Identifier Shelf Expiration Date Model / Serial / Lot Mesh Surgical 3in X 6in - [id number] Implanted:Qty: 1 on 12/06/2014 by Jaxon Adams MD at [facility] [employer] 08/05/2019 [id number] / / [id number] Procedures Procedure Name Priority Date/Time Associated Diagnosis Comments LIPID PANEL W REFLEX MEASURED LDL Routine 12/06/2021 1:51 PM POWER NUT RUNNER OPERATOR Hyperlipidemia, unspecified hyperlipidemia type ANTI HCV Routine 05/25/2020 8:17 AM CDT Routine general medical examination at a health care facility COLONOSCOPY 12/10/2018 10:48 AM POWER NUT RUNNER OPERATOR from Last 3 Months or Most Recently Relevant to Health Maintenance Results * LIPID PANEL W REFLEX MEASURED LDL (12/06/2021 1:51 PM POWER NUT RUNNER OPERATOR) CHOLESTEROL,TOTAL 142 100 - 199 mg/dL 12/06/2021 2:35 PM POWER NUT RUNNER OPERATOR [facility] TRIGLYCERIDES 86 <150 mg/dL 12/06/2021 2:35 PM POWER NUT RUNNER OPERATOR [facility] HDL CHOLESTEROL 68 >40 mg/dL 2:35 PM POWER NUT RUNNER OPERATOR [facility] NON-HDL CHOLESTEROL 74 <145 mg/dl 12/06/2021 2:35 PM [facility] CHOL/HDL RATIO 2.09 <4.50 12/06/2021 2:35 PM [facility] LDL CHOLESTEROL 57 <=130 mg/dL 12/06/2021 2:35 PM [facility] VLDL CHOLESTEROL 17 <=30 mg/dL 12/06/2021 2:35 PM [facility] PROVIDER ORDERED STATUS RANDOM 12/06/2021 2:35 PM POWER NUT RUNNER OPERATOR [facility] Blood BLOOD SPECIMEN / Unknown Venipuncture / Unknown 12/06/2021 1:51 PM POWER NUT RUNNER OPERATOR 12/06/2021 1:54 PM POWER NUT RUNNER OPERATOR Lamberto Padilla MD CHEMISTRY [facility] [address] [place] [address] * ANTI HCV (05/25/2020 8:17 AM CDT) HEPATITIS C ANTIBODY Non-React jayesh Non-React jayesh 05/25/2020 4:33 PM CDT [facility] Comment:Antibodies to HCV no t detected; does not exclude the possibility of exposure to HCV. Blood BLOOD SPECIMEN / Unknown Venipuncture / Unknown 05/25/2020 8:17 AM CDT 05/25/2020 8:20 AM CDT Lamberto Padilla MD SEND OUTS [facility] 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
--- OUTSIDE RECORDS SUMMARY | 2024-07-12 09:44 | XMS_ITS | Clinical Summary ---
Author Organization [place] Address [address] [place] [address]. [place] [address] Care Team Providers Care Director Of Marketing Communications Name Role Phone Lamberto Padilla Primary Care Provider [phone] Allergies Active Allergy Reactions Criticality Noted Date [...] C SCREENING 1969 LUNG CANCER SCREENING 2001 FALL RISK ASSESSMENT 2016 MEDICARE ANNUAL WELLNESS VISIT 2016 PHQ-2 (once per calendar year) 2023 COVID-19 Vaccine ( season) 2024 09/04/2022, 02/23/2022, 07/03/2021, Additional history exists INFLUENZA VACCINE (#1) 2024 , 08/06/2021, 08/06/2021, Additional history exists GLUCOSE 05/13/2025 05/13/2022 DTAP/TDAP/TD IMMUNIZATION (2 - Td or Tdap) 11/06/2025 11/06/2015, 08/13/2005 RSV VACCINE (1 - 1-dose 75+ series) 2026 Pneumococcal Vaccine: 65+ Years Completed 12/07/2018, 06/23/2017 [...] MD LAB - BLOOD ORDERABL ES LABORATORY [facility] [address], [address] [place] [address], [facility] [phone] from Last 3 Months or Most Recently Relevant to Health Maintenance Care Teams Director Of Marketing Communications Relationship Specialty Start Date End Date Lamberto Padilla [address] [facility] [place] [address] PCP - General Family Medicine 04/23/22
--- OUTSIDE RECORDS SUMMARY | 2024-07-12 09:45 | XMS_ITS | Data Portability ---
Author Organization [place] [facility], [facility] Address [address] [place] [address] Assessment Encounter Date Assessment Date Assessment LastModified by Organization Details LastModified Time 03/13/2023 03/13/2023 72 yoM with history Tis UCC s/p induction BCG completed 08/06/2022 rstromquist Not available 03/10/2023 13:00:17 06/13/2023 06/13/2023 72 yoM with history Tis UCC s/p induction BCG completed 08/06/2022 marco Not available 06/10/2023 12:47:57 09/18/2023 09/18/2023 72 yoM with history Tis UCC s/p induction BCG completed 08/06/2022 rstromquist Not available 09/16/2023 08:59:19 12/26/2023 12/26/2023 73 yoM with history Tis UCC s/p induction BCG completed 08/06/2022 rstromquist Not available 12/25/2023 17:06:31 04/14/2024 04/14/2024 73 yoM with history Tis UCC s/p induction BCG completed 08/06/2022 rstromquist Not available 04/14/2024 09:08:52 Plan of Treatment Reminders Order Date Submit Date Provider Last Modified By Organization Details Last Modified Time Details Appointments ESTABLI SHED 10 2023 10:50A Teofilo Rothman MD Not available Not available Not available Lab urinaly sis, dipstic k 2022 023 ssamb [facility], [address], [place], [address], 03/13/2023 11:58:21 urinaly sis, dipstic k 2022 023 [email or web address] [facility], [address], [place], [address], 06/13/2023 14:43:25 urinaly sis, dipstic k 2022 023 rstromquist [facility], [address], [place], [address], 09/18/2023 10:54:47 cytolog y, urine 2022 023 EMY [facility], [address], [place], [address], 09/22/2023 16:04:28 urinaly sis, dipstic k 2023 024 rstromquist [facility], [address], [place], [address], 12/26/2023 15:08:44 urinaly sis, dipstic k 2023 024 rstromquist [facility], [address], [place], [address], 04/14/2024 15:27:57 Referral None recorde d. Procedures None recorde d. Surgeries None recorde d. Imaging None recorde d. Medication Orders None recorde d. Patient TargetsNo targets recorded. Patient InstructionsNo instructions recorded. Reason for Referral None Reported. Results Created Date Observation Date Name Description Value Unit Range Abnormal Flag Note LastModifiedBy Organization Detail LastModifiedTime 03/13/20 23 03/13/2023 urina lysis , dipst ick Color-Status Yellow Not Available [facility] [address], [place], [address], 03/13/2023 11:57:53 03/13/20 23 03/13/2023 urina lysis , dipst ick Clarity-Stat us Clear Not Available [facility] [address], [place], [address], 03/13/2023 11:57:53 03/13/20 23 03/13/2023 urina lysis , dipst ick Glucose-Stat us 1000 Not Available [facility] [address], [place], [address], 03/13/2023 11:57:53 03/13/20 23 03/13/2023 urina lysis , dipst ick Protein-Stat us >=9.0 Not Available [facility] [address], [place], [address], 03/13/2023 11:57:53 06/13/20 23 06/13/2023 urina lysis , dipst ick Color-Status Yellow Not Available [facility] [address], [place], [address], 06/13/2023 14:42:39 06/13/20 23 06/13/2023 urina lysis , dipst ick Clarity-Stat us Clear Not Available [facility] [address], [place], [address], 06/13/2023 14:42:39 06/13/20 23 06/13/2023 urina lysis , dipst ick Glucose-Stat us Negati ve Not Available [facility] [address], [place], [address], 06/13/2023 14:42:39 06/13/20 23 06/13/2023 urina lysis , dipst ick Bilirubin-St atus Small Not Available [facility] [address], [place], [address], 06/13/2023 14:42:39 06/13/20 23 06/13/2023 urina lysis , dipst ick Ketones-Stat us Negati ve Not Available [facility] [address], [place], [address], 06/13/2023 14:42:39 06/13/20 23 06/13/2023 urina lysis , dipst ick Nitrates-Sta tus negati ve Not Available [facility] [address], [place], [address], 06/13/2023 14:42:39 06/13/20 23 06/13/2023 urina lysis , dipst ick Blood-Status Negati ve Not Available [facility] [address], [place], [address], 06/13/2023 14:42:39 06/13/20 23 06/13/2023 urina lysis , dipst ick Leuko-Status Negati ve Not Available [facility] [address], [place], [address], 06/13/2023 14:42:39 06/13/20 23 06/13/2023 urina lysis , dipst ick Specimen Type Voided Not Available [facility] [address], [place], [address], 06/13/2023 14:42:39 09/18/20 23 09/18/2023 urina lysis , dipst ick pH-Status 6.0 Not Available [facility] [address], [place], [address], 09/18/2023 10:54:12 09/18/20 23 09/18/2023 urina lysis , dipst ick Nitrates-Sta tus negati ve Not Available [facility] [address], [place], [address], 09/18/2023 10:54:12 09/18/20 23 09/18/2023 urina lysis , dipst ick Blood-Status Negati ve Not Available [facility] [address], [place], [address], 09/18/2023 10:54:12 09/18/20 23 09/18/2023 urina lysis , dipst ick Leuko-Status Negati ve Not Available [facility] [address], [place], [address], 09/18/2023 10:54:12 09/18/20 23 09/18/2023 urina lysis , dipst ick Specimen Type Voided Not Available [facility] [address], [place], [address], 09/18/2023 10:54:12 12/26/19 24 12/26/2023 urina lysis , dipst ick pH-Status 5.5 Not Available [facility] [address], [place], [address], 12/26/2023 15:05:16 12/26/19 24 12/26/2023 urina lysis , dipst ick Nitrates-Sta tus negati ve Not Available [facility] [address], [place], [address], 12/26/2023 15:05:16 12/26/19 24 12/26/2023 urina lysis , dipst ick Blood-Status Negati ve Not Available [facility] [address], [place], [address], 12/26/2023 15:05:16 12/26/19 24 12/26/2023 urina lysis , dipst ick Leuko-Status Negati ve Not Available [facility] [address], [place], [address], 12/26/2023 15:05:16 12/26/19 24 12/26/2023 urina lysis , dipst ick Specimen Type Voided Not Available [facility] [address], [place], [address], 12/26/2023 15:05:16 04/14/20 24 04/14/2024 urina lysis , dipst ick BLOOD Negati ve Not Available [facility] [address], [place], [address], 04/14/2024 09:08:52 04/14/20 24 04/14/2024 urina lysis , dipst ick NITRITES Negati ve Not Available [facility] [address], [place], [address], 04/14/2024 09:08:52 04/14/20 24 04/14/2024 urina lysis , dipst ick GLUCOSE >2000 mg/dL Not Available [facility] [address], [place], [address], 04/14/2024 09:08:52 04/14/20 24 04/14/2024 urina lysis , dipst ick p.H. 5.0 Not Available [facility] [address], [place], [address], 04/14/2024 09:08:52 04/14/20 24 04/14/2024 urina lysis , dipst ick LEUKOCYTES Negati ve Not Available [facility] [address], [place], [address], 04/14/2024 09:08:52 Result Notes None recorded. Problems Name Problem SNOMED Code Status Onset Date Resolution Date Notes Provider Name and Address Organization Details Recorded Time Malignant neoplasm of urinary bladder 900838322 Active 022 Elizabeth yu [facility] 15:13:09 Problem Notes None recorded. Procedures Surgical History Date Name Laterality Status Provider Name and Address Organization Details Recorded Time 04/14/20 24 Cystoscopy- male completed Demetrius Rothman MD [address] [place] [address],[address], [place], [address], [facility] 04/14/2024 16:16:01 04/14/20 24 COMPLEX VISIT completed Demetrius Rothman MD [address] [place] [address],[address], [place], [address], [facility] 04/14/2024 09:42:30 04/14/20 24 Sulfa post Cysto completed Matilda Gunn [facility] 04/14/2024 15:27:52 12/26/19 24 Cystoscopy- male completed Demetrius Rothman MD [address] [place] [address],[address], [place], [address], [facility] 12/26/2023 17:00:12 11/06/19 24 Colonoscopy completed [facility]ilda Gunn [facility] 04/14/2024 15:27:10 09/18/20 23 Cystoscopy- male completed Demetrius oRthman MD [address] [place] [address],[address], [place], [address], [facility] 09/18/2023 14:03:55 09/18/20 23 Sulfa post Cysto completed Matilda Gunn [facility] 09/18/2023 10:55:00 06/13/20 23 Cystoscopy- male completed Demetrius Rothman MD [address] [place] [address],[address], [place], [address], [facility] 06/13/2023 15:11:40 03/13/20 23 Cystoscopy- male completed Demetrius Rothman MD [address] [place] [address],[address], [place], [address], [facility] 03/13/2023 12:06:00 03/13/20 23 Sulfa post Cysto completed Demetrius Rothman MD [address] [place] [address],[address], [place], [address], [facility] 03/13/2023 12:06:28 12/13/19 23 Cystoscopy- male completed Demetrius Rothman MD [address] [place] [address],[address], [place], [address], [facility] 12/12/2022 13:47:37 09/11/20 22 Cystoscopy- male completed Demetrius Rothman MD [address] [facility] [address], [place], [address], [facility] 09/11/2022 12:19:20 09/11/20 22 Cipro post Cysto completed Matilda Gunn [facility] 09/11/2022 12:17:16 08/06/20 22 BCG Full Dose Tx 50mg completed Amy Dockery [facility] 08/06/2022 14:24:24 07/30/20 22 BCG Full Dose Tx 50mg completed Amy Dockery [facility] 07/30/2022 15:04:41 07/23/20 22 BCG Full Dose Tx 50mg completed Cecily Rosales [facility] 07/23/2022 15:09:26 07/16/20 22 BCG Full Dose Tx 50mg completed Cecily Rosales [facility] 07/16/2022 15:50:27 07/09/20 22 BCG Full Dose Tx 50mg completed Cecily Rosales [facility] 07/09/2022 15:08:36 07/02/20 22 BCG Full Dose Tx 50mg completed Elizabeth Clark [facility] 07/02/2022 15:15:42 05/13/20 22 TRANSURETHRAL RESECTION OF BLADDER TUMOR (SURG) completed Demetrius Rothman MD [address] [place] [address],[address], [place], [address], [facility] 05/29/2022 12:36:20 Imaging Results None recorded. Procedure Notes None recorded. Medical Equipment None Reported. Allergies No known drug allergies Medications Name Sig Start Date Stop Date Status Note LastModified by Organization Details LastModified Time cyclobenzap rine 10 mg tablet TAKE 1/2 TO 1 TABLET BY MOUTH AT BEDTIME FOR MUSCLE SPASMS 12/12 completed Not Available Not Available Not Available atorvastati n 40 mg tablet TAKE 1 TABLET BY MOUTH EVERY EVENING active Not Available Not Available No t Available prednisone 10 mg tablet 12/12 completed Not Available Not Available Not Available prednisone 20 mg tablet 09/18 completed Not Available Not Available Not Available sertraline 100 mg tablet TAKE 1 TABLET BY MOUTH EVERY DAY active Not Available Not Available No t Available sulfamethox azole 800 mg-trimetho prim 160 mg tablet Take 1 tablet by mouth twice a day starting on (05-08-22) pre surgeryTa ke 1 tablet by mouth twice a day starting on (05-14-22) Post surgery 05/29 completed Not Available Not Available Not Available oxycodone-a cetaminophe n 5 mg-325 mg tablet TAKE 1-2 TABLETS BY MOUTH EVERY 4-6 HOURS NEEDED FOR PAIN 12/25 completed Not Available Not Available Not Available Saqib BCG 50 mg intravesica l suspension Instill 50 mg by intravesi hollis route. 12/12 completed Not Available Not Available Not Available tamsulosin 0.4 mg capsule 12/12 completed Not Available Not Available Not Available OneTouch Ultra Test strips TEST ONCE DAILY active Not Available Not Available No t Available glimepiride 4 mg tablet TAKE 2 TABLETS BY MOUTH EVERY DAY active Not Available Not Available No t Available celecoxib 100 mg capsule 12/12 completed Not Available Not Available Not Available losartan 100 mg tablet TAKE 1 TABLET BY MOUTH EVERY DAY active Not Available Not Available No t Available metformin ER 500 mg tablet,exte nded release 24 hr TAKE 4 TABLETS BY MOUTH EVERY DAY active Not Available Not Available No t Available oxycodone 5 mg tablet TAKE 1/2 TO 1 TABLET BY MOUTH EVERY 6 HOURS NEEDED FOR PAIN 09/18 completed Not Available Not Available Not Available escitalopra m 20 mg tablet TAKE 1 TABLET BY MOUTH EVERY DAY active Not Available Not Available No t Available bupropion HCl XL 300 mg 24 hr tablet, extended release TAKE 1 TABLET BY MOUTH EVERY MORNING active Not Available Not Available No t Available bupropion HCl XL 150 mg 24 hr tablet, extended release 12/25 completed Not Available Not Available Not Available varenicline 1 mg tablet TAKE 1 TABLET BY MOUTH TWICE DAILY WITH MEALS 12/12 completed Not Available Not Available Not Available varenicline 0.5 mg (11)-1 mg (42) tablets in a dose pack TAKE DIRECTED 12/12 completed Not Available Not Available Not Available BD Ultra-Fine Short Pen Needle 31 gauge x 5/16 USE TO ADMINISTE R INSUILIN EVERY DAY active Not Available Not Available No t Available Januvia 100 mg tablet TAKE HALF OF A TABLET DAILY FOR 14 DAYS THEN 1 TABLET DAILY 12/25 completed Not Available Not Available Not Available Lantus Solostar U-100 Insulin 100 unit/mL (3 mL) subcutaneou s pen ADMINISTE R 20 UNITS UNDER THE SKIN EVERY MORNING active Not Available Not Available No t Available GaviLyte-G 236 gram-22.74 gram-6.74 gram-5.86 gram oral solution 12/25 completed Not Available Not Available Not Available FreeStyle Rocco 2 Sensor kit CHANGE SENSOR ONCE EVERY 14 DAYS. active Not Available Not Available No t Available FreeStyle Rocco 2 Two Dot active Not Available Not Available Not Available insulin glargine-yf gn (U-100) 100 unit/mL (3 mL) subcutaneou s pen ADMINISTE R 20 UNITS UNDER THE SKIN EVERY EVENING 12/25 completed Not Available Not Available Not Available Vitals Date Recorded Body height Body mass index (BMI) Body weight Provider Name and Address Organization Details Last Updated DateTime 03/13/2023 177.8 cm 29.4 kg/m2 75239.44 g Ritesh Lord [facility] 03/13/2023 11:55:51 Date Recorded Body height Body mass index (BMI) Body weight Provider Name and Address Organization Details Last Updated DateTime 06/13/2023 177.8 cm 29.4 kg/m2 16599.44 g Юлия Hutson [facility] 06/13/2023 14:41:30 Date Recorded Body height Body mass index (BMI) Body weight Provider Name and Address Organization Details Last Updated DateTime 09/18/2023 177.8 cm 29.4 kg/m2 59706.44 g Matilda Gunn [facility] 09/18/2023 10:48:16 Date Recorded Body height Body mass index (BMI) Body weight Provider Name and Address Organization Details Last Updated DateTime 12/26/2023 177.8 cm 30.1 kg/m2 16763.4 g Matilda Gunn [facility] 12/26/2023 15:07:10 Date Recorded Body height Body mass index (BMI) Body weight Provider Name and Address Organization Details Last Updated DateTime 04/14/2024 177.8 cm 30.1 kg/m2 82831.4 g Matilda Santanaalexa [facility] 04/14/2024 15:26:18 Social History Question Answer Notes LastModified by Organizat ion Details LastModified Time Tobacco Smoking Status Current Every Day Smoker Matilda Velia yu [facility] 05/29/2022 11:05:22 What Is Your Level Of Alcohol Consumption? Occasional Information not available 05/29/2022 What Was The Date Of Your Most Recent Tobacco Screening? 04/14/2024 Information not available 04/14/2024 Sex: Unknown Functional Status None recorded. Mental Status None recorded. Family History Nothing Reported. Medical History Condition Response Diabetes Y High Blood Pressure Y Cancer Y High Cholesterol Y Immunizations Vaccine Type Date Status Provider Name and Address Organization Details Recorded Time COVID-19, mRNA, LNP-S, PF, 30 mcg/0.3 mL dose, coleen-sucrose 02/23/2022 completed Matilda yu [facility] 09/11/2022 11:52:26 COVID-19, mRNA, LNP-S, PF, 30 mcg/0.3 mL dose 12/25/2020 completed Matilda yu [facility] 09/11/2022 11:52:26 COVID-19, mRNA, LNP-S, PF, 30 mcg/0.3 mL dose 07/03/2021 completed Matilda yu [facility] 09/11/2022 11:52:26 Pneumococcal conjugate PCV 13 06/23/2017 completed Matilda yu [facility] 09/11/2022 11:52:26 pneumococcal polysaccharide PPV23 12/07/2018 completed Matilda yu [facility] 09/11/2022 11:52:26 COVID-19, mRNA, LNP-S, PF, 30 mcg/0.3 mL dose 12/01/2020 completed Matilda yu [facility] 09/11/2022 11:52:26 Influenza, adjuvanted, trivalent, PF 06/16/2018 [facility] 14:41:38 Influenza, adjuvanted, trivalent, PF 06/23/2017 completed Юлия Osterbauer null, [facility] 06/13/2023 14:41:38 Influenza, adjuvanted, trivalent, PF 07/19/2019 completed Юлия Osterbauer null, [facility] 06/13/2023 14:41:38 zoster recombinant 07/22/2020 completed Юлия Osterbauer null, [facility] 06/13/2023 14:41:38 zoster recombinant 09/20/2020 completed Юлия Osterbauer null, [facility] 06/13/2023 14:41:38 Influenza, adjuvanted, quadrivalent, PF 07/21/2022 completed Юлия Osterbauer null, [facility] 06/13/2023 14:41:38 Influenza, adjuvanted, quadrivalent, PF 07/22/2020 completed Юлия Osterbauer null, [facility] 06/13/2023 14:41:38 Influenza, adjuvanted, quadrivalent, PF 08/06/2021 completed Юлия Osterbauer null, [facility] 06/13/2023 14:41:38 Tdap 11/06/2015 completed Юлия Osterbauer null, [facility] 06/13/2023 14:41:38 zoster live 05/15/2012 completed Юлия Osterbauer null, [facility] 06/13/2023 14:41:38 Influenza, split virus, trivalent, preservative 11/06/2010 completed Юлия Osterbauer null, [facility] 06/13/2023 14:41:38 Influenza, split virus, trivalent, preservative 08/01/2009 completed Юлия Osterbauer null, [facility] 06/13/2023 14:41:38 Influenza, split virus, trivalent, preservative 08/19/2013 completed Юлия Osterbauer null, [facility] 06/13/2023 14:41:38 Hep A, adult 02/16/2019 completed Юлия Osterbauer null, [facility] 06/13/2023 14:41:38 Hep A, adult 05/25/2020 completed Юлия Osterbauer null, [facility] 06/13/2023 14:41:38 typhoid, ViCPs 02/16/2019 completed [facility] 06/13/2023 14:41:38 Influenza, split virus, quadrivalent, PF 11/18/2016 completed Юлия yu, [facility] 06/13/2023 14:41:38 Influenza, split virus, quadrivalent, PF 07/19/2014 completed Юлия yu, TERRI [facility] 06/13/2023 14:41:38 Past Encounters Encounter ID Performer Location Encounter Start Date Encounter Closed Date Diagnosis/Indication Diagnosis SNOMED-CT Code Diagnosis ICD10 Code [id number] Demetrius Rothman MD [facility] [address] [place] [address] 05/29/2022 11:02:29 05/31/2022 10:48:36 Malignant neoplasm of urinary bladder 895941899 C67.9 [id number] Elizabeth Clark [facility] [address] [place] [address] 07/02/2022 14:22:15 07/04/2022 15:51:32 Malignant neoplasm of urinary bladder 611463179 C67.9 [id number] Cecily Machometa [facility] [address] [place] [address] 07/09/2022 14:27:39 07/10/2022 13:04:58 Malignant neoplasm of urinary bladder 223323427 C67.9 [id number] Cecily Quilesometa [facility] [address] [place] [address] 07/16/2022 14:20:19 07/19/2022 08:06:11 Malignant neoplasm of urinary bladder 988770369 C67.9 [id number] Cecily Machometa [facility] [address] [place] [address] 07/23/2022 14:33:08 07/29/2022 10:13:11 Malignant neoplasm of urinary bladder 160540886 C67.9 [id number] Amy Hassaneiting [facility] [address] [place] [address] 07/30/2022 14:29:10 08/01/2022 14:22:43 Malignant neoplasm of urinary bladder 260744506 C67.9 [id number] Amy Dockery [facility] [address] [place] [address] 08/06/2022 14:31:28 08/07/2022 13:07:40 Malignant neoplasm of urinary bladder 003619746 C67.9 [id number] Demetrius Rothman MD [facility] [address] [place] [address] 09/11/2022 11:49:55 09/13/2022 10:41:02 Malignant neoplasm of urinary bladder 412419809 C67.9 [id number] Demetrius Rothman MD [facility] [address] [place] [address] 12/12/2022 11:31:27 12/16/2022 09:24:25 Malignant neoplasm of urinary bladder 183291215 C67.9 [id number] Demetrius Rothman MD [facility] [address] [place] [address] 03/13/2023 11:38:40 03/18/2023 08:49:23 Malignant neoplasm of urinary bladder 924190372 C67.9 [id number] Demetrius Rothman MD [facility] [address] [place] [address] 06/13/2023 14:18:31 06/18/2023 16:06:09 Malignant neoplasm of urinary bladder 626412936 C67.9 [id number] Demetrius Rothman MD [facility] [address] [place] [address] 09/18/2023 10:41:50 09/25/2023 13:28:02 Malignant neoplasm of urinary bladder 391490567 C67.9 [id number] Demetrius Rothman MD [facility] [address] [place] [address] 12/26/2023 14:55:02 12/29/2023 09:55:33 Malignant neoplasm of urinary bladder 651169489 C67.9 [id number] Demetrius Rothman MD [facility] [address] [place] [address] 04/14/2024 14:56:50 04/21/2024 13:42:02 Malignant neoplasm of urinary bladder 921668690 C67.9 Health Concerns Section Related Observation LastModified by Organization Detai ls LastModified Time None Recorded Concern Status LastModified by Organization Details LastModified Time None Recorded Advance Directives Directive None Recorded Payers Encounter Date Sequence Insurance Name Policy Number Policy Andres Covered Member ID Andres Member ID Guarantor Name 03/13/2023 2 [place] [employer] Florentino Godfrey [id number] Florentino Godfrey 03/13/2023 1 [place] [id number] Florentino Godfrey [id number] Florentino Godfrey 06/13/2023 2 [place] Florentino Godfrey [id number] Florentino Godfrey 06/13/2023 1 [place] [id number] Florentino Godfrey [id number] Florentino Godfrey 09/18/2023 1 [place] [id number] Florentino Godfrey [id number] Florentino Godfrey 12/26/2023 1 [place] [id number] Florentino Godfrey [id number] Florentino Godfrey 04/14/2024 1 [place] [id number] Florentino Godfrey [id number] Florentino Godfrey Notes Date Note Type Note Provider Name and Address Organization Details Recorded Time 03/13/2023 text/html HPI Notes: 05/29/2022: 71yoM with history of hematuria, underwent in-office cystoscopy which noted area of patchy erythema. He underwent formal TURBT (05/13/2022) which confirmed diagnosis of non-invasive CIS. We are joined today in the call by his who provides some of the history. 09/11/2022: Here for f/u Tis Bladder Cancer now s/p induction course of BCG. Here for first surveillance cystoscopy. No issues with the BCG and no voiding symptoms/hematuria . 12/12/2022: Here for f/u Tis Bladder Cancer now s/p induction course of BCG. Here for surveillance cystoscopy. 03/13/2023: Here for f/u Tis Bladder Cancer now s/p induction course of BCG. Here for surveillance cystoscopy. Has been dealing with lower lumbar back issues. Demetrius Rothman MD [address] [place] [address],[address], [place], [address], [facility] 03/13/2023 12:06:55 06/13/2023 text/html HPI Notes: 05/29/2022: 71yoM with history of hematuria, underwent in-office cystoscopy which noted area of patchy erythema. He underwent formal TURBT (05/13/2022) which confirmed diagnosis of non-invasive CIS. We are joined today in the call by his who provides some of the history. 09/11/2022: Here for f/u Tis Bladder Cancer now s/p induction course of BCG. Here for first surveillance cystoscopy. No issues with the BCG and no voiding symptoms/hematuria . 12/12/2022: Here for f/u Tis Bladder Cancer now s/p induction course of BCG. Here for surveillance cystoscopy. 03/13/2023: Here for f/u Tis Bladder Cancer now s/p induction course of BCG. Here for surveillance cystoscopy. Has been dealing with lower lumbar back issues. 06/13/2023: Here for f/u Tis Bladder Cancer now s/p induction course of BCG. Here for surveillance cystoscopy. No interval history change. Demetrius Rothman MD [address] [place] [address],[address], [place], [address], [facility] 06/13/2023 15:12:12 09/18/2023 text/html HPI Notes: 05/29/2022: 71yoM with history of hematuria, underwent in-office cystoscopy which noted area of patchy erythema. He underwent formal TURBT (05/13/2022) which confirmed diagnosis of non-invasive CIS. We are joined today in the call by his who provides some of the history. 09/11/2022: Here for f/u Tis Bladder Cancer now s/p induction course of BCG. Here for first surveillance cystoscopy. No issues with the BCG and no voiding symptoms/hematuria . 12/12/2022: Here for f/u Tis Bladder Cancer now s/p induction course of BCG. Here for surveillance cystoscopy. 03/13/2023: Here for f/u Tis Bladder Cancer now s/p induction course of BCG. Here for surveillance cystoscopy. Has been dealing with lower lumbar back issues. 06/13/2023: Here for f/u Tis Bladder Cancer now s/p induction course of BCG. Here for surveillance cystoscopy. No interval history change. 09/18/2023: Here for f/u Tis Bladder Cancer now s/p induction course of BCG. Here for surveillance cystoscopy. No interval history change. Demetrius Rothman MD [address] [place] [address],[address], [place], [address], [facility] 09/18/2023 14:04:25 12/26/2023 text/html HPI Notes: 05/29/2022: 71yoM with history of hematuria, underwent in-office cystoscopy which noted area of patchy erythema. He underwent formal TURBT (05/13/2022) which confirmed diagnosis of non-invasive CIS. We are joined today in the call by his who provides some of the history. 09/11/2022: Here for f/u Tis Bladder Cancer now s/p induction course of BCG. Here for first surveillance cystoscopy. No issues with the BCG and no voiding symptoms/hematuria . 12/12/2022: Here for f/u Tis Bladder Cancer now s/p induction course of BCG. Here for surveillance cystoscopy. 03/13/2023: Here for f/u Tis Bladder Cancer now s/p induction course of BCG. Here for surveillance cystoscopy. Has been dealing with lower lumbar back issues. 06/13/2023: Here for f/u Tis Bladder Cancer now s/p induction course of BCG. Here for surveillance cystoscopy. No interval history change. 09/18/2023: Here for f/u Tis Bladder Cancer now s/p induction course of BCG. Here for surveillance cystoscopy. No interval history change. 12/26/2023: Here for f/u Tis Bladder Cancer now s/p induction course of BCG. Here for surveillance cystoscopy. No interval history change. Demetrius Rothman MD [address] [place] [address],[address], [place], [address], [facility] 12/26/2023 17:00:33 04/14/2024 text/html HPI Notes: 05/29/2022: 71yoM with history of hematuria, underwent in-office cystoscopy which noted area of patchy erythema. He underwent formal TURBT (05/13/2022) which confirmed diagnosis of non-invasive CIS. We are joined today in the call by his who provides some of the history. 09/11/2022: Here for f/u Tis Bladder Cancer now s/p induction course of BCG. Here for first surveillance cystoscopy. No issues with the BCG and no voiding symptoms/hematuria . 12/12/2022: Here for f/u Tis Bladder Cancer now s/p induction course of BCG. Here for surveillance cystoscopy. 03/13/2023: Here for f/u Tis Bladder Cancer now s/p induction course of BCG. Here for surveillance cystoscopy. Has been dealing with lower lumbar back issues. 06/13/2023: Here for f/u Tis Bladder Cancer now s/p induction course of BCG. Here for surveillance cystoscopy. No interval history change. 09/18/2023: Here for f/u Tis Bladder Cancer now s/p induction course of BCG. Here for surveillance cystoscopy. No interval history change. 12/26/2023: Here for f/u Tis Bladder Cancer now s/p induction course of BCG. Here for surveillance cystoscopy. No interval history change. 04/14/2024: Here for f/u Tis Bladder Cancer now s/p induction course of BCG. Here for surveillance cystoscopy. No interval history change. Demetrius Rothman MD [address] [facility],[address], [place], [address], [facility] 04/14/2024 16:16:32
== END 2024-07-12 09:43 | disposition home or self-care (01) ==
PROVIDERS: PCP Family Medicine; Visit Provider Family Medicine
DX: Z01.818 Encounter for other preprocedural examination (principal); I10 Essential (primary) hypertension
CPT/HCPCS: 80048; 85025

== ENCOUNTER 2024-07-21 08:34 | Outpatient (CLI) | payer MEDICARE, BC, SELFPAY ==
--- OUTSIDE RECORDS SUMMARY | 2024-07-21 08:36 | XMS_ITS | Clinical Summary ---
Author Organization [facility] Address [address] [place] [address]. [place] [address] Care Team Providers Care Supervisor Smoke Control Name Role Phone Lamberto Padilla Primary Care Provider [phone] Allergies Active Allergy Reactions Criticality Noted Date [...] MD LAB - BLOOD ORDERABL ES LABORATORY [facility] [address] floor, [address] [place] [address], [facility] [phone] from Last 3 Months or Most Recently Relevant to Health Maintenance Care Teams Supervisor Smoke Control Relationship Specialty Start Date End Date Lamberto Padilla [address] [facility] [place] [address] PCP - General Family Medicine 04/23/22
--- OUTSIDE RECORDS SUMMARY | 2024-07-21 08:36 | XMS_ITS | Referral Summary ---
Author Organization [facility] Address [address] [place] [address]. [place] [address] Care Team Providers Care Sausage Grinder Name Role Phone Lamberto Padilla Primary Care Provider [phone] Allergies Active Allergy Reactions Criticality Noted Date [...] * (ABNORMAL) Glucose (05/13/2022 6:02 AM CDT) [facility] Signature Glucose 192(H) 70 - 99 mg/dL 05/13/2022 7:05 AM CDT LABORATORY Patient Fasting > 8hrs? Yes 05/13/2022 7:05 AM CDT LABORATORY Blood STRUCTURE OF RIGHT UPPER LIMB / Unknown Venipuncture / Unknown 05/13/2022 6:02 AM CDT 05/13/2022 6:25 AM CDT Mamadou Abarca MD LAB - BLOOD ORDERABL ES LABORATORY [facility] Acute Care Lab [address] floor, [address] [place] [address], [place] [phone] from Last 3 Months or Most Recently Relevant to Health Maintenance Care Teams Sausage Grinder Relationship Specialty Start Date End Date Lamberto Padilla [address] [place] [address] [phone] PCP - General Family Medicine 04/23/22
--- OUTSIDE RECORDS SUMMARY | 2024-07-21 08:36 | XMS_ITS | Clinical Summary ---
Author Organization [facility] Address [place], [place] [address] Care Team Providers Care Editor At Large Name Role Phone Unavailable Primary Care Provider [...] tablet. 3 12/06/2021 Active blood sugar diagnostic (CellControlTouch Ultra Test) stripIndications:Con trolled type 2 diabetes [...] Name Administration Dates Next Due COVID-19 vaccine (Anjuke NTViverae 30mcg/0.3mL) PF, MDV 12/25/2020,12/01/2020 Hepatitis A (Adult) [...] History [facility]ation Name Comments [facility] 2 Casey Liver disease Brother 2 Casey liver transpla [facility] Brother 3 Cameron Cancer Father Throat/Lung Cancer [...] 07/22/2020, 05/15/2012 Medical Devices Implanted Type Area Senior Regulatory Affairs Specialist Device Identifier Shelf Expiration Date Model / Serial / Lot Mesh Surgical 3in X 6in - [id number] Implanted:Qty: 1 on 12/06/2014 by Jaxon Adams MD at [facility] D-[employer] 08/05/2019 [id number] / / [id number] Procedures Procedure Name Priority Date/Time Associated Diagnosis Comments LIPID PANEL W REFLEX MEASURED LDL Routine 12/06/2021 1:51 PM MANAGEMENT DEVELOPER Hyperlipidemia, unspecified hyperlipidemia type ANTI HCV Routine 05/25/2020 8:17 AM CDT Routine general medical examination at a health care facility COLONOSCOPY 12/10/2018 10:48 AM MANAGEMENT DEVELOPER from Last 3 Months or Most Recently Relevant to Health Maintenance Results * LIPID PANEL W REFLEX MEASURED LDL (12/06/2021 1:51 PM MANAGEMENT DEVELOPER) CHOLESTEROL,TOTAL 142 100 - 199 mg/dL 12/06/2021 2:35 PM MANAGEMENT DEVELOPER [facility] TRIGLYCERIDES 86 <150 mg/dL 12/06/2021 2:35 PM MANAGEMENT DEVELOPER [facility] HDL CHOLESTEROL 68 >40 mg/dL 2:35 PM MANAGEMENT DEVELOPER [facility] NON-HDL CHOLESTEROL 74 <145 mg/dl 12/06/2021 2:35 PM MERGED WITH [facility] CHOL/HDL RATIO 2.09 <4.50 12/06/2021 2:35 PM MERGED WITH [facility] LDL CHOLESTEROL 57 <=130 mg/dL 12/06/2021 2:35 PM MERGED WITH [facility] VLDL CHOLESTEROL 17 <=30 mg/dL 12/06/2021 2:35 PM MERGED WITH [facility] PROVIDER ORDERED STATUS RANDOM 12/06/2021 2:35 PM MANAGEMENT DEVELOPER [facility] Blood BLOOD SPECIMEN / Unknown Venipuncture / Unknown 12/06/2021 1:51 PM MANAGEMENT DEVELOPER 12/06/2021 1:54 PM MANAGEMENT DEVELOPER Lamberto Padilla MD CHEMISTRY [facility] [address] [place] [address] * ANTI HCV (05/25/2020 8:17 AM CDT) HEPATITIS C ANTIBODY Non-React jayesh Non-React jayesh 05/25/2020 4:33 PM CDT [facility] [facility] Comment:Antibodies to HCV no t detected; does not exclude the possibility of exposure to HCV. Blood BLOOD SPECIMEN / Unknown Venipuncture / Unknown 05/25/2020 8:17 AM CDT 05/25/2020 8:20 AM CDT Lamberot Padilla MD SEND OUTS [facility] [address] [place] [address], * COLONOSCOPY (12/10/2018 10:48 AM MANAGEMENT DEVELOPER) 12/10/2018 10:4 8 AM MANAGEMENT DEVELOPER Narrative Transcriptions Jaxon Adams MD - 12/10/2018 11:52 AM CST Patient Name: Florentino Godfrey Procedure Date: 12/10/2018 Gender: Male Date of : 1950 Admit Type: Ambulatory Procedure: Colonoscopy Proceduralist: Jaxon Adams [facility] Indications/Pre-Op Diagnosis: High risk colon cancer surveillance:Personal [...] Documents on File Type Date Recorded Patient Vendor Management Specialist Expl anation POLST 12/10/2018 11:41 AM POL, 01/2019 Healthcare Directive 06/16/2018 018 * Full Code (Latest Code Status on File) Date Activated Date Inactivated Comments 12/06/2014 11:05 AM 12/06/2014 3:50 PM * Full Code Date Activated Date Inactivated Comments 12/05/2014 12:28 PM 12/06/2014 11:05 AM
--- OUTSIDE RECORDS SUMMARY | 2024-07-21 08:37 | XMS_ITS | Data Portability ---
Author Organization [place] [facility], [facility] Address [address] [facility] [address] [place] [address] Assessment Encounter Date Assessment Date Assessment LastModified [...] 023 ssamb [facility], [address], [place], [address], 03/13/2023 11:58:21 urinaly sis, dipstic k 2022 023 [email or web address] [facility], [address], [place], [address], 06/13/2023 14:43:25 urinaly sis, dipstic k 2022 023 rstromquist [facility], [address], [place], [address], 09/18/2023 10:54:47 cytolog y, urine 2022 023 EMY [facility], [address], [place], [address], 09/22/2023 16:04:28 urinaly sis, dipstic k 2023 024 rstromquist [facility], [address], [place], [address], 12/26/2023 15:08:44 urinaly sis, dipstic k 2023 024 rstromquist [facility], [address], [place], [address], 04/14/2024 15:27:57 Referral None recorde d. Procedures [...] Available [facility] [address], [place], [address], 03/13/2023 11:57:53 03/13/20 23 03/13/2023 urina lysis , dipst ick Clarity-Stat us Clear Not Available [facility] [address], [place], [address], 03/13/2023 11:57:53 03/13/20 23 03/13/2023 urina lysis , dipst ick Glucose-Stat us 1000 Not Available [facility] [address], [place], [address], 03/13/2023 11:57:53 03/13/20 23 03/13/2023 urina lysis , dipst ick Protein-Stat us >=9.0 Not Available [facility] [address], [place], [address], 03/13/2023 11:57:53 06/13/20 23 06/13/2023 urina lysis , dipst ick Color-Status Yellow Not Available [facility] [address], [place], [address], 06/13/2023 14:42:39 06/13/20 23 06/13/2023 urina lysis , dipst ick Clarity-Stat us Clear Not Available [facility] [address], [place], [address], 06/13/2023 14:42:39 06/13/20 23 06/13/2023 urina lysis , dipst ick Glucose-Stat us Negati ve Not Available [facility] [address], [place], [address], 06/13/2023 14:42:39 06/13/20 23 06/13/2023 urina lysis , dipst ick Bilirubin-St atus Small Not Available [facility] [address], [place], [address], 06/13/2023 14:42:39 06/13/20 23 06/13/2023 urina lysis , dipst ick Ketones-Stat us Negati ve Not Available [facility] [address], [place], [address], 06/13/2023 14:42:39 06/13/20 23 06/13/2023 urina lysis , dipst ick Nitrates-Sta tus negati ve Not Available [facility] [address], [place], [address], 06/13/2023 14:42:39 06/13/20 23 06/13/2023 urina lysis , dipst ick Blood-Status Negati ve Not Available [facility] [address], [place], [address], 06/13/2023 14:42:39 06/13/20 23 06/13/2023 urina lysis , dipst ick Leuko-Status Negati ve Not Available [facility] [address], [place], [address], 06/13/2023 14:42:39 06/13/20 23 06/13/2023 urina lysis , dipst ick Specimen Type Voided Not Available [facility] [address], [place], [address], 06/13/2023 14:42:39 09/18/20 23 09/18/2023 urina lysis , dipst ick pH-Status 6.0 Not Available [facility] [address], [place], [address], 09/18/2023 10:54:12 09/18/20 23 09/18/2023 urina lysis , dipst ick Nitrates-Sta tus negati ve Not Available [facility] [address], [place], [address], 09/18/2023 10:54:12 09/18/20 23 09/18/2023 urina lysis , dipst ick Blood-Status Negati ve Not Available [facility] [address], [place], [address], 09/18/2023 10:54:12 09/18/20 23 09/18/2023 urina lysis , dipst ick Leuko-Status Negati ve Not Available [facility] [address], [place], [address], 09/18/2023 10:54:12 09/18/20 23 09/18/2023 urina lysis , dipst ick Specimen Type Voided Not Available [facility] [address], [place], [address], 09/18/2023 10:54:12 12/26/19 24 12/26/2023 urina lysis , dipst ick pH-Status 5.5 Not Available [facility] [address], [place], [address], 12/26/2023 15:05:16 12/26/19 24 12/26/2023 urina lysis , dipst ick Nitrates-Sta tus negati ve Not Available [facility] [address], [place], [address], 12/26/2023 15:05:16 12/26/19 24 12/26/2023 urina lysis , dipst ick Blood-Status Negati ve Not Available [facility] [address], [place], [address], 12/26/2023 15:05:16 12/26/19 24 12/26/2023 urina lysis , dipst ick Leuko-Status Negati ve Not Available [facility] [address], [place], [address], 12/26/2023 15:05:16 12/26/19 24 12/26/2023 urina lysis , dipst ick Specimen Type Voided Not Available [facility] [address], [place], [address], 12/26/2023 15:05:16 04/14/20 24 04/14/2024 urina lysis , dipst ick BLOOD Negati ve Not Available [facility] [address], [place], [address], 04/14/2024 09:08:52 04/14/20 24 04/14/2024 urina lysis , dipst ick NITRITES Negati ve Not Available [facility] [address], [place], [address], 04/14/2024 09:08:52 04/14/20 24 04/14/2024 urina lysis , dipst ick GLUCOSE >2000 mg/dL Not Available [facility] [address], [place], [address], 04/14/2024 09:08:52 04/14/20 24 04/14/2024 urina lysis , dipst ick p.H. 5.0 Not Available [facility] [address], [place], [address], 04/14/2024 09:08:52 04/14/20 24 04/14/2024 urina lysis , dipst ick LEUKOCYTES Negati ve Not Available [facility] [address], [place], [address], 04/14/2024 09:08:52 Result Notes None recorded. Problems Name Problem SNOMED Code Status Onset Date Resolution Date Notes Provider Name and Address Organization Details Recorded Time Malignant neoplasm of urinary bladder [id number] Active 022 Elizabeth yu [place] [facility] 15:13:09 Problem Notes None recorded. Procedures Surgical History Date Name Laterality Status Provider Name and Address Organization Details Recorded Time 07/22/20 24 Cystoscopy- male active Matilda Guevara [facility] 07/12/2024 16:45:02 04/14/20 24 Cystoscopy- male completed Demetrius Rothman MD [address] [place] [address],[address], [place], [address], [facility] 04/14/2024 16:16:01 04/14/20 24 COMPLEX VISIT completed Demetrius Rothman MD [address] [place] [address],[address], [place], [address], [facility] 04/14/2024 09:42:30 04/14/20 24 Sulfa post Cysto completed Matilda Gunn [facility] 04/14/2024 15:27:52 12/26/19 24 Cystoscopy- male completed Demetrius Rothman MD [address] [place] [address],[address], [place], [address], [facility] 12/26/2023 17:00:12 11/06/19 24 Colonoscopy completed Matilda Gunn [facility] 04/14/2024 15:27:10 09/18/20 23 Cystoscopy- male completed Demetrius Rothman MD [address] [place] [address],[address], [place], [address], [facility] 09/18/2023 14:03:55 09/18/20 23 Sulfa post Cysto [facility] 09/18/2023 10:55:00 06/13/20 23 Cystoscopy- male completed Demetrius Rothman MD [address] [place] [address],[address], [place], [address], [facility] 06/13/2023 15:11:40 03/13/20 23 Cystoscopy- male completed Demetrius Rothman MD [address] [place] [address],[address], [place], [address], [facility] 03/13/2023 12:06:00 03/13/20 23 Sulfa post Cysto completed Demetrius Rothman MD [address] [place] [address],[address], [place], [address], [facility] 03/13/2023 12:06:28 12/13/19 23 Cystoscopy- male completed Demetrius Rothman MD [address] [facility],[address], [place], [address], [facility] 12/12/2022 13:47:37 09/11/20 22 Cystoscopy- male completed Demetrius Rothman MD [address] [facility],[address], [place], [address], [facility] 09/11/2022 12:19:20 09/11/20 22 Cipro post Cysto completed Matilda Gunn [facility] 09/11/2022 12:17:16 08/06/20 22 BCG Full Dose Tx 50mg completed Amy Dockery [facility] 08/06/2022 14:24:24 07/30/20 22 BCG Full Dose Tx 50mg completed Amy Dockery [facility] 07/30/2022 15:04:41 07/23/20 22 BCG Full Dose Tx 50mg completed Cecily Rosales [facility] 07/23/2022 15:09:26 07/16/20 22 BCG Full Dose Tx 50mg completed Cecily Rosales [facility] 07/16/2022 15:50:27 07/09/20 22 BCG Full Dose Tx 50mg completed Cecily Rosales [facility] 07/09/2022 15:08:36 07/02/20 22 BCG Full Dose Tx 50mg completed Elizabeth Clark [facility] 07/02/2022 15:15:42 05/13/20 22 TRANSURETHRAL RESECTION OF BLADDER TUMOR (SURG) completed Demetrius Rothman MD [address] [facility],[address], [place], [address], [facility] 05/29/2022 12:36:20 Imaging Results None recorded. [...] completed Not Available Not Available Not Available [place] BCG 50 mg intravesica l suspension Instill [...] Available No t Available FreeStyle [place] active Not Available Not Available Not Available insulin glargine-yf gn (U-100) 100 unit/mL (3 mL) subcutaneou s pen ADMINISTE R 20 UNITS UNDER THE SKIN EVERY EVENING 12/25 completed Not Available Not Available Not Available Vitals Date Recorded Body height Body mass index (BMI) Body weight Provider Name and Address Organization Details Last Updated DateTime 03/13/2023 177.8 cm 29.4 kg/m2 71524.44 g Ritesh Lord [facility] 03/13/2023 11:55:51 Date Recorded Body height Body mass index (BMI) Body weight Provider Name and Address Organization Details Last Updated DateTime 06/13/2023 177.8 cm 29.4 kg/m2 36875.44 g Юлия Hutson [facility] 06/13/2023 14:41:30 Date Recorded Body height Body mass index (BMI) Body weight Provider Name and Address Organization Details Last Updated DateTime 09/18/2023 177.8 cm 29.4 kg/m2 84263.44 g Matilda Gunn [facility] 09/18/2023 10:48:16 Date Recorded Body height Body mass index (BMI) Body weight Provider Name and Address Organization Details Last Updated DateTime 12/26/2023 177.8 cm 30.1 kg/m2 97126.4 g Matilda Gunn [facility] 12/26/2023 15:07:10 Date Recorded Body height Body mass index (BMI) Body weight Provider Name and Address Organization Details Last Updated DateTime 04/14/2024 177.8 cm 30.1 kg/m2 82102.4 g Matilda Gunn [facility] 04/14/2024 15:26:18 Social History Question Answer Notes LastModified by Organizat ion Details LastModified Time Tobacco Smoking Status Current Every Day Smoker Matilda yu [facility] 05/29/2022 11:05:22 What Is Your Level [...] mL dose, coleen-sucrose 02/23/2022 completed Matilda yu [facility] 09/11/2022 11:52:26 COVID-19, mRNA, LNP-S, PF, 30 mcg/0.3 mL dose 12/25/2020 [facility] 11:52:26 COVID-19, mRNA, LNP-S, PF, 30 mcg/0.3 mL dose 07/03/2021 completed Matilda yu [facility] 09/11/2022 11:52:26 Pneumococcal conjugate PCV 13 06/23/2017 completed Matilda yu [facility] 09/11/2022 11:52:26 pneumococcal polysaccharide PPV23 12/07/2018 completed Matilda yu [facility] 09/11/2022 11:52:26 COVID-19, mRNA, LNP-S, PF, 30 mcg/0.3 mL dose 12/01/2020 [facility] 11:52:26 Influenza, adjuvanted, trivalent, PF 06/16/2018 completed Юлия Osterbauer null, [facility] 06/13/2023 14:41:38 Influenza, adjuvanted, trivalent, PF 06/23/2017 completed Юлия Osterbauer null, [facility] 06/13/2023 14:41:38 Influenza, adjuvanted, trivalent, PF 07/19/2019 completed Юлия Osterbauer null, [facility] 06/13/2023 14:41:38 zoster recombinant 07/22/2020 completed Юлия Osterbauer null, [facility] 06/13/2023 14:41:38 zoster recombinant 09/20/2020 completed Юлия Osterbauer null, [facility] 06/13/2023 14:41:38 Influenza, adjuvanted, quadrivalent, PF 07/21/2022 completed Юлия Osterbauer null, [facility] 06/13/2023 14:41:38 Influenza, adjuvanted, quadrivalent, PF 07/22/2020 completed Юлия Osterbauer null, [facility] 06/13/2023 14:41:38 Influenza, adjuvanted, quadrivalent, PF 08/06/2021 completed Юлия Osterbauer null, [facility] 06/13/2023 14:41:38 Tdap 11/06/2015 completed Юлия Osterbauer null, [facility] 06/13/2023 14:41:38 zoster live 05/15/2012 completed Юлия Osterbauer null, [facility] 06/13/2023 14:41:38 Influenza, split virus, trivalent, preservative 11/06/2010 completed Юлия Osterbauer null, [facility] 06/13/2023 14:41:38 Influenza, split virus, trivalent, preservative 08/01/2009 completed Юлия Osterbauer null, [facility] 06/13/2023 14:41:38 Influenza, split virus, trivalent, preservative 08/19/2013 completed Юлия Osterbauer null, [facility] 06/13/2023 14:41:38 Hep A, adult 02/16/2019 completed Юлия Osterbauer null, [facility] 06/13/2023 14:41:38 Hep A, adult 05/25/2020 completed Юлия yu, [facility] 06/13/2023 14:41:38 typhoid, ViCPs 02/16/2019 completed Юлия yu, [facility] 06/13/2023 14:41:38 Influenza, split virus, quadrivalent, PF 11/18/2016 completed Юлия yu, [facility] 06/13/2023 14:41:38 Influenza, split virus, quadrivalent, PF 07/19/2014 completed Юлия yu, [facility] 06/13/2023 14:41:38 Past Encounters Encounter ID Performer Location Encounter Start Date Encounter Closed Date Diagnosis/Indication Diagnosis SNOMED-CT Code Diagnosis ICD10 Code [id number] Demetrius Rothman MD [facility] [address] [place] [address] 05/29/2022 11:02:29 05/31/2022 10:48:36 Malignant neoplasm of urinary bladder 365944644 C67.9 [id number] Elizabeth Clark [facility] [address] [place] [address] 07/02/2022 14:22:15 07/04/2022 15:51:32 Malignant neoplasm of urinary bladder 563320611 C67.9 [id number] Cecily Quilesometa [facility] [address] [place] [address] 07/09/2022 14:27:39 07/10/2022 13:04:58 Malignant neoplasm of urinary bladder 327316525 C67.9 [id number] Cecily Quilesometa [facility] [address] [place] [address] 07/16/2022 14:20:19 07/19/2022 08:06:11 Malignant neoplasm of urinary bladder 276872282 C67.9 [id number] Cecily Quilesometa [facility] [address] [place] [address] 07/23/2022 14:33:08 07/29/2022 10:13:11 Malignant neoplasm of urinary bladder 961697623 C67.9 [id number] [facility] [address] [place] [address] 07/30/2022 14:29:10 08/01/2022 14:22:43 Malignant neoplasm of urinary bladder 473045123 C67.9 [id number] Amy Dockery [facility] [address] [place] [address] 08/06/2022 14:31:28 08/07/2022 13:07:40 Malignant neoplasm of urinary bladder 191963185 C67.9 [id number] [facility] [address] [place] [id number] 09/11/2022 11:49:55 09/13/2022 10:41:02 Malignant neoplasm of urinary bladder 759766071 C67.9 [id number] Demetrius Rothman MD [facility] [address] [place] [id number] 12/12/2022 11:31:27 12/16/2022 09:24:25 Malignant neoplasm of urinary bladder 827463136 C67.9 [id number] Demetrius Rothman MD [facility] [address] [place] [address] 03/13/2023 11:38:40 03/18/2023 08:49:23 Malignant neoplasm of urinary bladder 136875718 C67.9 [id number] Demetrius Rothman MD [facility] [address] [place] [address] 06/13/2023 14:18:31 06/18/2023 16:06:09 Malignant neoplasm of urinary bladder 573176656 C67.9 [id number] Demetrius Rothman MD [facility] [address] [place] [id number] 09/18/2023 10:41:50 09/25/2023 13:28:02 Malignant neoplasm of urinary bladder 467299899 C67.9 [id number] Demetrius Rothman MD [facility] [address] [place] [address] 12/26/2023 14:55:02 12/29/2023 09:55:33 Malignant neoplasm of urinary bladder 108304945 C67.9 [id number] Demetrius Rothman MD [facility] [address] [place] [id number] 04/14/2024 14:56:50 04/21/2024 13:42:02 Malignant neoplasm of urinary bladder 274513773 C67.9 Health Concerns Section Related Observation LastModified by Organization Detai ls LastModified Time None Recorded Concern Status LastModified by Organization Details LastModified Time None Recorded Advance Directives Directive None Recorded Payers Encounter Date Sequence Insurance Name Policy Number Policy Andres Covered Member ID Andres Member ID Guarantor Name 03/13/2023 2 [place] [employer] Florentino Godfrey [id number] Florentino Godfrey 03/13/2023 1 [place] [id number] Florentino Godfrey [id number] Florentino Godfrey 06/13/2023 2 [place] Florentino Godfrey [id number] Florentino Godfrey 06/13/2023 1 [place] [id number] Florentino Godfrey [id number] Florentino Godfrey 09/18/2023 1 [place] [id number] Florentino Godfrey [id number] Florentino Godfrey 12/26/2023 1 [place] [id number] Florentino Godfrey [id number] Florentino Godfrey 04/14/2024 1 [place] [id number] Florentino Godfrey [id number] Florentino Godfrey Notes Date Note Type Note [...] lower lumbar back issues. Demetrius Rothman MD [address] [place] [address],[address], [place], [address], [facility] 03/13/2023 12:06:55 06/13/2023 text/html HPI Notes: [...] No interval history change. Demetrius Rothman MD [address] [facility],[address], [place], [address], [facility] 06/13/2023 15:12:12 09/18/2023 text/html HPI Notes: [...] No interval history change. Demetrius Rothman MD [address] [place] [address],[address], [place], [address], [facility] 09/18/2023 14:04:25 12/26/2023 text/html HPI Notes: 05/29/2022: [...] No interval history change. Demetrius Rothman MD [address] [place] [address],[address], [place], [address], [facility] 12/26/2023 17:00:33 04/14/2024 text/html HPI Notes: [...] No interval history change. Demetrius Rothman MD [address] [place] [address],[address], [place], [address], [facility] 04/14/2024 16:16:32
--- NOTE | 2024-07-21 09:00 | CRLHL7_ITS ---
For Patients: As a result of the Century Cures Act, medical imaging exams and procedure reports are released immediately into your electronic medical record. You may view this report before your referring provider. If you have questions, please contact your health care provider. Indication: Smoker, lung cancer screening Technique: Low-dose lung cancer screening CT chest without contrast Comparison: None Findings: Heart is normal in size with moderate coronary artery atherosclerotic calcifications and no pericardial effusion. 41 millimeters ascending thoracic aortic ectasia is present. Main pulmonary artery is mildly dilated at 30 millimeters, correlate for pulmonary arterial hypertension. There is no mediastinal mass or mediastinal or axillary lymphadenopathy. Right hilum is slightly prominent suspicious for a mildly enlarged lymph node measuring approximately 12 millimeters in short axis. 20 x 18 millimeter right lower lobe pulmonary nodule has ill-defined borders. No other pulmonary nodule or pleural effusion. Visualized upper abdomen is unremarkable. There are mild degenerative changes within the thoracic spine. Soft tissues are unremarkable. Impression: 1. 19 millimeter right lower lobe pulmonary nodule = Lung-RADS category 4B (very suspicious with < 15% chance of malignancy). Recommend FDG PET-CT or tissue. 2. Prominent right hilum, suspicious for a mildly enlarged node. FDG PET-CT would also further characterize this finding. Please note that all CT scans at this facility use dose modulation, iterative reconstruction, and/or weight-based dosing when appropriate to reduce radiation dose to as low as reasonably achievable. Dictated by Rian Banks MD @ 07/22/2024 4:50:41 PM (Electronically Signed)
== END 2024-07-21 08:35 | disposition home or self-care (01) ==
LOC: CT 08:35
PROVIDERS: PCP Family Medicine; Visit Provider Family Medicine
DX: Z12.2 Encounter for screening for malignant neoplasm of respiratory organs (principal); R91.8 Other nonspecific abnormal finding of lung field; F17.210 Nicotine dependence, cigarettes, uncomplicated; Z72.0 Tobacco use
CPT/HCPCS: 71271

== ENCOUNTER 2024-08-26 13:44 | Outpatient (CLI) | payer MEDICARE, BC, SELFPAY ==
--- OUTSIDE RECORDS SUMMARY | 2024-08-26 13:47 | XMS_ITS | Clinical Summary ---
Author Organization [facility] Address [address] [place] [address]. [place] [address] Care Team Providers Care Powder Room Attendant Name Role Phone Lamberto Padilla Primary Care Provider [phone] Allergies Active Allergy Reactions Criticality Noted Date Comments Jett Inhibitors Cough 05/10/2022 Medications aspirin 81 MG EC tablet Take 81 [...] 2 tabs Active phenazopyridine (PYRIDIUM) 100 MG tabletIndicatio ns:History of biopsy of bladder Take 2 tablets (200 mg) by mouth 3 times daily as needed for urinary tract discomfort 9 tablet 2 Active celecoxib (CELEBREX) 100 MG capsuleIndicati ons:History of biopsy of bladder Take 1 capsule (100 mg) by mouth 2 times daily 14 capsule 2 Active Active Problems Problem Noted Date Diagnosed [...] Recorded Sex Assigned at Not on file 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 Gender Identity Not on file Sexual Orientation Not on file Last Filed Vital Signs Vital Sign Reading Time Taken Comments Blood Pressure 126/72 05/13/2022 9:38 AM CDT Pulse 65 05/13/2022 9:38 AM CDT Temperature 36.7 C (98 F) 05/13/2022 9:38 AM CDT Respiratory Rate 14 [...] SIG 1951 LIPID 1951 sDNA (Cologuard) 1951 HEPATITIS C SCREENING 1969 LUNG CANCER SCREENING 2001 FALL RISK ASSESSMENT 2016 MEDICARE ANNUAL WELLNESS VISIT 2016 PHQ-2 (once per calendar year) 2023 COVID-19 Vaccine ( season) 2024 08/08/2023, 09/04/2022, 02/23/2022, Additional history exists GLUCOSE 05/13/2025 05/13/2022 DTAP/TDAP/TD IMMUNIZATION (2 - Td or Tdap) 11/06/2025 11/06/2015, 08/13/2005 RSV VACCINE (1 - 1-dose 75+ series) 2026 COLONOSCOPY 12/10/2028 12/10/2018 COLORECTAL CANCER SCREENING 12/10/2028 Pneumococcal Vaccine: 65+ Years Completed 12/07/2018, 06/23/2017 ZOSTER IMMUNIZATION Completed 09/20/2020, 07/22/2020, 05/15/2012 INFLUENZA VACCINE Completed 07/12/2024, , 07/21/2022, Additional history exists HPV IMMUNIZATION Aged Out No longer e [...] * (ABNORMAL) Glucose (05/13/2022 6:02 AM CDT) [facility] Signature Glucose 192(H) 70 - 99 mg/dL 05/13/2022 7:05 AM CDT LABORATORY Patient Fasting > 8hrs? Yes 05/13/2022 7:05 AM CDT LABORATORY Blood STRUCTURE OF RIGHT UPPER LIMB / Unknown Venipuncture / Unknown 05/13/2022 6:02 AM CDT 05/13/2022 6:25 AM CDT Mamadou Abarca MD LAB - BLOOD ORDERABLES Final Result LABORATORY [facility] [address] floor, [address] [place] [address], [place] [phone] from Last 3 Months or Most Recently Relevant to Health Maintenance Insurance [facility] MEDICARE Care Teams Powder Room Attendant Relationship Specialty Start Date End Date Lamberto Padilla [address] [facility] [place] [address] PCP - General Family Medicine 04/23/22
--- OUTSIDE RECORDS SUMMARY | 2024-08-26 13:47 | XMS_ITS | Clinical Summary ---
Author Organization [employer] [facility] Address [place], [place] [address] Care Team Providers Care Hospice Coordinator Name Role Phone Unavailable Primary Care Provider [...] tablet. 3 12/06/2021 Active blood sugar diagnostic ([employer] Games[employer] Ultra Test) stripIndications:Con trolled type 2 diabetes [...] Name Administration Dates Next Due COVID-19 vaccine ([employer] 30mcg/0.3mL) PF, MDV 12/25/2020,12/01/2020 Hepatitis A (Adult) [...] History Relation Name Comments Diabetes [facility] Brother 2 Casey Liver disease Brother 2 Casey liver transpla [facility] Brother 3 Cameron Cancer Father Throat/Lung [...] 70 05/06/2022 11:36 AM CDT Temperature 36.7 C (98 F) 05/06/2022 11:36 AM CDT Respiratory Rate 20 [...] 07/22/2020, 05/15/2012 Medical Devices Implanted Type Area Sand Analyst Device Identifier Shelf Expiration Date Model / Serial / Lot Mesh Surgical 3in X 6in - [id number] Implanted:Qty: 1 on 12/06/2014 by Jaxon Adams MD at [facility] D-[employer]RIUM 08/05/2019 [id number] / / [id number] Procedures Procedure Name Priority Date/Time Associated Diagnosis Comments LIPID PANEL W REFLEX MEASURED LDL Routine 12/06/2021 1:51 PM [employer]IST Hyperlipidemia, unspecified hyperlipidemia type ANTI HCV Routine 05/25/2020 8:17 AM CDT Routine general medical examination at a health care facility COLONOSCOPY 12/10/2018 10:48 AM [employer] SPECIALIST from Last 3 Months or Most Recently Relevant to Health Maintenance Results * LIPID PANEL W REFLEX MEASURED LDL (12/06/2021 1:51 PM AUTOM[employer] CONTR[employer] SPECIALIST) CHOLESTEROL,TOTAL 142 100 - 199 mg/dL 12/06/2021 2:35 PM AUTOMATION CONTR[employer] SPECIALIST [facility] TRIGLYCERIDES 86 <150 mg/dL 12/06/2021 2:35 PM AUTOMATION CONTR[employer] SPECIALIST [facility] HDL CHOLESTEROL 68 >40 mg/dL 2:35 PM AUT[employer] SPECIALIST [facility] NON-HDL CHOLESTEROL 74 <145 mg/dl 12/06/2021 2:35 PM [facility] CHOL/HDL RATIO 2.09 <4.50 12/06/2021 2:35 PM [facility] LDL CHOLESTEROL 57 <=130 mg/dL 12/06/2021 2:35 PM [facility] VLDL CHOLESTEROL 17 <=30 mg/dL 12/06/2021 2:35 PM [facility] PROVIDER ORDERED STATUS RANDOM 12/06/2021 2:35 PM [employer]IST [facility] Blood BLOOD SPECIMEN / Unknown Venipuncture / Unknown 12/06/2021 1:51 PM [employer] SPECIALIST 12/06/2021 1:54 PM [employer]IST Lamberto Padilla MD CHEMISTRY [facility] [address] [place] [address] * ANTI HCV (05/25/2020 8:17 AM CDT) HEPATITIS C ANTIBODY Non-React jayesh Non-React jayesh 05/25/2020 4:33 PM CDT [facility] Comment:Antibodies to HCV no t detected; does not exclude the possibility of exposure to HCV. Blood BLOOD SPECIMEN / Unknown Venipuncture / Unknown 05/25/2020 8:17 AM CDT 05/25/2020 8:20 AM CDT Lamberto Padilla MD SEND OUTS [facility] 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
--- OUTSIDE RECORDS SUMMARY | 2024-08-26 13:47 | XMS_ITS | Data Portability ---
[facility] Organization [place] [facility] Address [address] [facility] [address] [place] [address] Assessment Encounter Date Assessment Date Assessment LastModified by Organization Details LastModified Time 06/13/2023 06/13/2023 72 yoM with history Tis [...] completed 08/06/2022 [email or web address] Not available 04/14/2024 09:08:52 07/22/2024 07/22/2024 73 yoM with history Tis UCC s/p induction BCG completed 08/06/2022 [email or web address] Not available 07/12/2024 16:45:05 Plan of Treatment Reminders Order Date Submit Date Provider Last Modified By Organization Details Last Modified Time Details Appointments ESTABLI SHED 10 2024 10:10A M Demetrius Rothman MD Not available Not available Not available Lab urinaly sis, dipstic k 2022 023 marco [facility], [address], [place], [address], 06/13/2023 14:43:25 urinaly sis, dipstic k 2022 023 [email or web address] [facility], [address], [place], [address], 09/18/2023 10:54:47 cytolog y, urine 2022 023 EMY [facility], [address], [place], [address], 09/22/2023 16:04:28 urinaly sis, dipstic k 2023 024 [email or web address] [facility], [address], [place], [address], 12/26/2023 15:08:44 urinaly sis, dipstic k 2023 024 [email or web address] [facility], [address], [place], [address], 04/14/2024 15:27:57 urinaly sis, dipstic k 2023 024 [email or web address] [facility], [address], [place], [address], 07/22/2024 11:58:15 Referral None recorde d. Procedures None recorde d. Surgeries None recorde d. Imaging None recorde d. Medication Orders None recorde d. Patient TargetsNo targets recorded. Patient InstructionsNo instructions recorded. Reason for Referral None Reported. Results Created Date Observation Date Name Description Value Unit Range Abnormal Flag Note LastModifiedBy Organization Detail LastModifiedTime 06/13/20 23 06/13/2023 urina lysis , dipst ick Color-Status Yellow Not Available [facility] [address], [place], [address], 06/13/2023 14:42:39 06/13/20 23 06/13/2023 urina lysis , dipst ick Clarity-Stat us Clear Not Available [facility] [address], [place], [address], 06/13/2023 14:42:39 06/13/20 23 06/13/2023 urina lysis , dipst ick Glucose-Stat us Negati ve Not Available [facility] [address], [place], [address], 06/13/2023 14:42:39 06/13/20 23 06/13/2023 urina lysis , dipst ick Bilirubin-St atus Small Not Available [facility] [address], [place], [address], 06/13/2023 14:42:39 06/13/20 23 06/13/2023 urina lysis , dipst ick Ketones-Stat us Negati ve Not Available [facility] [address], [place], [address], 06/13/2023 14:42:39 06/13/20 23 06/13/2023 urina lysis , dipst ick Nitrates-Sta tus negati ve Not Available [facility] [address], [place], [address], 06/13/2023 14:42:39 06/13/20 23 06/13/2023 urina lysis , dipst ick Blood-Status Negati ve Not Available [facility] [address], [place], [address], 06/13/2023 14:42:39 06/13/20 23 06/13/2023 urina lysis , dipst ick Leuko-Status Negati ve Not Available [facility] [address], [place], [address], 06/13/2023 14:42:39 06/13/20 23 06/13/2023 urina lysis , dipst ick Specimen Type Voided Not Available [facility] [address], [place], [address], 06/13/2023 14:42:39 09/18/20 23 09/18/2023 urina lysis , dipst ick pH-Status 6.0 Not Available [facility] [address], [place], [address], 09/18/2023 10:54:12 09/18/20 23 09/18/2023 urina lysis , dipst ick Nitrates-Sta tus negati ve Not Available [facility] [address], [place], [address], 09/18/2023 10:54:12 09/18/20 23 09/18/2023 urina lysis , dipst ick Blood-Status Negati ve Not Available [facility] [address], [place], [address], 09/18/2023 10:54:12 09/18/20 23 09/18/2023 urina lysis , dipst ick Leuko-Status Negati ve Not Available [facility] [address], [place], [address], 09/18/2023 10:54:12 09/18/20 23 09/18/2023 urina lysis , dipst ick Specimen Type Voided Not Available [facility] [address], [place], [address], 09/18/2023 10:54:12 12/26/19 24 12/26/2023 urina lysis , dipst ick pH-Status 5.5 Not Available [facility] [address], [place], [address], 12/26/2023 15:05:16 12/26/19 24 12/26/2023 urina lysis , dipst ick Nitrates-Sta tus negati ve Not Available [facility] [address], [place], [address], 12/26/2023 15:05:16 12/26/19 24 12/26/2023 urina lysis , dipst ick Blood-Status Negati ve Not Available [facility] [address], [place], [address], 12/26/2023 15:05:16 12/26/19 24 12/26/2023 urina lysis , dipst ick Leuko-Status Negati ve Not Available [facility] [address], [place], [address], 12/26/2023 15:05:16 12/26/19 24 12/26/2023 urina lysis , dipst ick Specimen Type Voided Not Available [facility] [address], [place], [address], 12/26/2023 15:05:16 04/14/20 24 04/14/2024 urina lysis , dipst ick BLOOD Negati ve Not Available [facility] [address], [place], [address], 04/14/2024 09:08:52 04/14/20 24 04/14/2024 urina lysis , dipst ick NITRITES Negati ve Not Available [facility] [address], [place], [address], 04/14/2024 09:08:52 04/14/20 24 04/14/2024 urina lysis , dipst ick GLUCOSE >2000 mg/dL Not Available [facility] [address], [place], [address], 04/14/2024 09:08:52 04/14/20 24 04/14/2024 urina lysis , dipst ick p.H. 5.0 Not Available [facility] [address], [place], [address], 04/14/2024 09:08:52 04/14/20 24 04/14/2024 urina lysis , dipst ick LEUKOCYTES Negati ve Not Available [facility] [address], [place], [address], 04/14/2024 09:08:52 07/22/2007/22/2024 urina lysis , dipst ick BLOOD Negati ve Not Available [facility] [address], [place], [address], 07/22/2024 11:44:08 07/22/2007/22/2024 urina lysis , dipst ick NITRITES Negati ve Not Available [facility] [address], [place], [address], 07/22/2024 11:44:08 07/22/2007/22/2024 urina lysis , dipst ick GLUCOSE 500 mg/dL Not Available [facility] [address], [place], [address], 07/22/2024 11:44:08 07/22/2007/22/2024 urina lysis , dipst ick p.H. 5.0 Not Available [facility] [address], [place], [address], 07/22/2024 11:44:08 07/22/2007/22/2024 urina lysis , dipst ick LEUKOCYTES Negati ve Not Available [facility] [address], [place], [address], 07/22/2024 11:44:08 Result Notes None recorded. Problems Name Problem SNOMED Code Status Onset Date Resolution Date Notes Provider Name and Address Organization Details Recorded Time Malignant neoplasm of urinary bladder 496186210 Active 022 Elizabeth Clark [facility] 15:13:09 Problem Notes None recorded. Procedures Surgical History Date Name Laterality Status Provider Name and Address Organization Details Recorded Time 07/22/20 24 Cystoscopy- male completed Demetrius Rothman MD [address] [place] [address],[address], [address], [facility] 07/22/2024 13:18:14 07/22/20 24 COMPLEX VISIT completed Demetrius Rothman MD [address] [place] [address],[address], [address], [facility] 07/22/2024 08:18:58 07/22/20 24 Sulfa post Cysto completed Matilda Guevara [facility] 07/22/2024 11:44:41 04/14/20 24 Cystoscopy- male completed Demetrius Rothman MD [address] [place] [address],[address], [place], [address], [facility] 04/14/2024 16:16:01 04/14/20 24 COMPLEX VISIT completed Demetrius Rothman MD [address] [place] [address],[address], [place], [address], [facility] 04/14/2024 09:42:30 04/14/20 24 Sulfa post Cysto completed Matilda Gunn [facility] 04/14/2024 15:27:52 12/26/19 24 Cystoscopy- male completed Demetrius Rothman MD [address] [place] [address],[address], [place], [address], [facility] 12/26/2023 17:00:12 11/06/19 24 Colonoscopy completed [facility] 04/14/2024 15:27:10 09/18/20 23 Cystoscopy- male completed Demetrius Rothman MD [address] [place] [address],[address], [address], [facility] 09/18/2023 14:03:55 09/18/20 23 Sulfa post Cysto completed Matilad Gunn [facility] 09/18/2023 10:55:00 06/13/20 23 Cystoscopy- male completed Demetrius Rothman MD [address] [facility],[address], [place], [address], [facility] 06/13/2023 15:11:40 03/13/20 23 Cystoscopy- male completed Demetrius Rothman MD [address] [place] [address],[address], [place], [address], [facility] 03/13/2023 12:06:00 03/13/20 23 Sulfa post Cysto completed Demetrius Rothman MD [address] [place] [address],[address], [place], [address], [facility] 03/13/2023 12:06:28 12/13/19 23 Cystoscopy- male completed Demterius Rothman MD [address] [place] [address],[address], [place], [address], [facility] 12/12/2022 13:47:37 09/11/20 22 Cystoscopy- male completed Demetrius Rothman MD [address] [place] [address],[address], [place], [address], [facility] 09/11/2022 12:19:20 09/11/20 22 Cipro post Cysto completed Matilda Gunn [facility] 09/11/2022 12:17:16 08/06/20 22 BCG Full Dose Tx 50mg completed Amy Dockery [facility] 08/06/2022 14:24:24 07/30/20 22 BCG Full Dose Tx 50mg completed Amy Dockery [facility] 07/30/2022 15:04:41 07/23/20 22 BCG Full Dose Tx 50mg completed Cecily Rosales [facility] 07/23/2022 15:09:26 07/16/20 22 BCG Full Dose Tx 50mg completed Cecily Rosales [facility] 07/16/2022 15:50:27 07/09/20 22 BCG Full Dose Tx 50mg completed Cecily Rosales [facility] 07/09/2022 15:08:36 07/02/20 22 BCG Full Dose Tx 50mg completed Elizabeth Clark [facility] 07/02/2022 15:15:42 05/13/20 22 TRANSURETHRAL RESECTION OF BLADDER TUMOR (SURG) completed Demetrius Rothman MD [address] [facility],[address], [place], [address], [facility] 05/29/2022 12:36:20 Imaging Results None recorded. [...] Available No t Available FreeStyle [place] [address] [place] active Not Available Not Available Not Available insulin glargine-yf gn (U-100) 100 unit/mL (3 mL) subcutaneou s pen ADMINISTE R 20 UNITS UNDER THE SKIN EVERY EVENING 12/25 completed Not Available Not Available Not Available Vitals Date Recorded Body height Body mass index (BMI) Body weight Provider Name and Address Organization Details Last Updated DateTime 06/13/2023 177.8 cm 29.4 kg/m2 28487.44 g Юлия Hutson [facility] 06/13/2023 14:41:30 Date Recorded Body height Body mass index (BMI) Body weight Provider Name and Address Organization Details Last Updated DateTime 09/18/2023 177.8 cm 29.4 kg/m2 42749.44 g Matilda Gunn [facility] 09/18/2023 10:48:16 Date Recorded Body height Body mass index (BMI) Body weight Provider Name and Address Organization Details Last Updated DateTime 12/26/2023 177.8 cm 30.1 kg/m2 83362.4 g Matilda Gunn [facility] 12/26/2023 15:07:10 Date Recorded Body height Body mass index (BMI) Body weight Provider Name and Address Organization Details Last Updated DateTime 04/14/2024 177.8 cm 30.1 kg/m2 42701.4 g Matilda Velia [facility] 04/14/2024 15:26:18 Date Recorded Body height Body mass index (BMI) Body weight Provider Name and Address Organization Details Last Updated DateTime 07/22/2024 177.8 cm 30.1 kg/m2 20652.4 g Spenser Zaldivar [facility] 07/22/2024 11:39:41 Social History Question Answer Notes LastModified by Organizat ion Details LastModified Time Tobacco Smoking Status Current Every Day Smoker Matilda yu [facility] 05/29/2022 11:05:22 What Is Your Level Of Alcohol Consumption? Occasional [email or web address] Information not available 05/29/2022 What Was The Date Of Your Most Recent Tobacco Screening? 07/22/2024 [email or web address] Information not available 07/22/2024 Sex: Unknown Functional Status None recorded. Mental Status None recorded. Family History Nothing Reported. Medical History Condition Response Diabetes Y High Blood Pressure Y Cancer Y High Cholesterol Y Immunizations Vaccine Type Date Status Provider Name and Address Organization Details Recorded Time COVID-19, mRNA, LNP-S, PF, 30 mcg/0.3 mL dose, coleen-sucrose 02/23/2022 completed Matilda yu [facility] 09/11/2022 11:52:26 COVID-19, mRNA, LNP-S, PF, 30 mcg/0.3 mL dose 12/25/2020 completed Matilda yu [facility] 09/11/2022 11:52:26 COVID-19, mRNA, LNP-S, PF, 30 mcg/0.3 mL dose 07/03/2021 completed Matilda Gunn null, [facility] 09/11/2022 11:52:26 Pneumococcal conjugate PCV 13 06/23/2017 completed [facility]ilda Maxquist null, [facility] 09/11/2022 11:52:26 pneumococcal polysaccharide PPV23 12/07/2018 completed Matilda Maxquist null, [facility] 09/11/2022 11:52:26 COVID-19, mRNA, LNP-S, PF, 30 mcg/0.3 mL dose 12/01/2020 completed Matilda Maxquist null, [facility] 09/11/2022 11:52:26 Influenza, adjuvanted, trivalent, PF 06/16/2018 completed Юлия Osterbauer null, [facility] 06/13/2023 14:41:38 Influenza, adjuvanted, trivalent, PF 06/23/2017 completed Юлия Osterbauer null, [facility] 06/13/2023 14:41:38 Influenza, adjuvanted, trivalent, PF 07/19/2019 completed Юлия Osterbauer null, [facility] 06/13/2023 14:41:38 zoster recombinant 07/22/2020 completed Юлия Osterbauer null, [facility] 06/13/2023 14:41:38 zoster recombinant 09/20/2020 completed Юлия Osterbauer null, [facility] 06/13/2023 14:41:38 Influenza, adjuvanted, quadrivalent, PF 07/21/2022 completed Юлия Osterbauer null, [facility] 06/13/2023 14:41:38 Influenza, adjuvanted, quadrivalent, PF 07/22/2020 completed Юлия Osterbauer null, [facility] 06/13/2023 14:41:38 Influenza, adjuvanted, quadrivalent, PF 08/06/2021 completed Юлия Osterbauer null, [facility] 06/13/2023 14:41:38 Tdap 11/06/2015 completed Юлия Osterbauer null, [facility] 06/13/2023 14:41:38 zoster live 05/15/2012 completed Юлия Osterbauer null, [facility] 06/13/2023 14:41:38 Influenza, split virus, trivalent, preservative 11/06/2010 completed Юлия Russnatalie gigi, [facility] 06/13/2023 14:41:38 Influenza, split virus, trivalent, preservative 08/01/2009 completed Юлия Lópezomar gigi, [facility] 06/13/2023 14:41:38 Influenza, split virus, trivalent, preservative 08/19/2013 completed Юлия Russnatalie gigi, [facility] 06/13/2023 14:41:38 Hep A, adult 02/16/2019 completed Юлия Russnatalie gigi, [facility] 06/13/2023 14:41:38 Hep A, adult 05/25/2020 completed Юлия Russnatalie gigi, [facility] 06/13/2023 14:41:38 typhoid, ViCPs 02/16/2019 completed Юлия Russnatalie gigi, [facility] 06/13/2023 14:41:38 Influenza, split virus, quadrivalent, PF 11/18/2016 completed Юлия Russnatalie gigi, [facility] 06/13/2023 14:41:38 Influenza, split virus, quadrivalent, PF 07/19/2014 [facility] 14:41:38 Past Encounters Encounter ID Performer Location Encounter Start Date Encounter Closed Date Diagnosis/Indication Diagnosis SNOMED-CT Code Diagnosis ICD10 Code [id number] MD EVY [facility] [address] [place] [address] 05/29/2022 11:02:29 05/31/2022 10:48:36 Malignant neoplasm of urinary bladder 334163899 C67.9 [id number] Elizabeth Olmsteadclemente [facility] [address] [place] [address] 07/02/2022 14:22:15 07/04/2022 15:51:32 Malignant neoplasm of urinary bladder 300725650 C67.9 [id number] Cecily [facility] [address] [place] [address] 07/09/2022 14:27:39 07/10/2022 13:04:58 Malignant neoplasm of urinary bladder 909094609 C67.9 [id number] Cecily Rosales [facility] [address] [place] [address] 07/16/2022 14:20:19 07/19/2022 08:06:11 Malignant neoplasm of urinary bladder 742610919 C67.9 [id number] Cecily Rosales [facility] [address] [place] [address] 07/23/2022 14:33:08 07/29/2022 10:13:11 Malignant neoplasm of urinary bladder 490689849 C67.9 [id number] Amy Dockery [facility] [address] [place] [address] 07/30/2022 14:29:10 08/01/2022 14:22:43 Malignant neoplasm of urinary bladder 137778720 C67.9 [id number] Amy Dockery [facility] [address] [place] [address] 08/06/2022 14:31:28 08/07/2022 13:07:40 Malignant neoplasm of urinary bladder 163682162 C67.9 [id number] [facility] [address] [place] [address] 09/11/2022 11:49:55 09/13/2022 10:41:02 Malignant neoplasm of urinary bladder 321053496 C67.9 [id number] [facility] [address] [place] [address] 12/12/2022 11:31:27 12/16/2022 09:24:25 Malignant neoplasm of urinary bladder 535512525 C67.9 [id number] [facility] [address] [place] [address] 03/13/2023 11:38:40 03/18/2023 08:49:23 Malignant neoplasm of urinary bladder 139667271 C67.9 [id number] [facility] [address] [place] [address] 06/13/2023 14:18:31 06/18/2023 16:06:09 Malignant neoplasm of urinary bladder 896994365 C67.9 [id number] Demetrius Rothman MD [address] [place] [address] 09/18/2023 10:41:50 09/25/2023 13:28:02 Malignant neoplasm of urinary bladder 190357168 C67.9 [id number] Demetrius Rothman MD [facility] [address] [place] [address] 12/26/2023 14:55:02 12/29/2023 09:55:33 Malignant neoplasm of urinary bladder 245420997 C67.9 [id number] Demetrius Rothman MD [facility] [address] [place] [address] 04/14/2024 14:56:50 04/21/2024 13:42:02 Malignant neoplasm of urinary bladder 209286696 C67.9 [id number] Demetrius Rothman MD [address] [place] [address] 07/22/2024 11:30:56 07/23/2024 14:50:24 Malignant neoplasm of urinary bladder 450325137 C67.9 Health Concerns Section Related Observation LastModified by Organization Detai ls LastModified Time None Recorded Concern Status LastModified by Organization Details LastModified Time None Recorded Advance Directives Directive None Recorded Payers Encounter Date Sequence Insurance Name Policy Number Policy Andres Covered Member ID Andres Member ID Guarantor Name 06/13/2023 2 [place] [employer] Florentino Godfrey [id number] Florentino Godfrey 06/13/2023 1 [place] [id number] Florentino Godfrey [id number] Florentino Godfrey 09/18/2023 1 [place] [id number] Florentino Godfrey [id number] Florentino Godfrey 12/26/2023 1 [place] [id number] Florentino Godfrey [id number] Florentino Godfrey 04/14/2024 1 [place] [id number] Florentino Godfrey [id number] Florentino Godfrey 07/22/2024 1 [place] [id number] Florentino Godfrey [id number] Florentino Godfrey Notes Date Note Type Note Provider Name and Address Organization Details Recorded Time 06/13/2023 text/html 05/29/2022:71yoM with history of hematuria, underwent in-office cystoscopy which noted area of patchy erythema. He underwent formal TURBT (05/13/2022) which confirmed diagnosis of non-invasive CIS. We are joined today in the call by his who provides some of the history. 09/11/2022:Here for f/u Tis Bladder Cancer now s/p induction course of BCG. Here for first surveillance cystoscopy. No issues with the BCG and no voiding symptoms/hematuria . 12/12/2022:Here for f/u Tis Bladder Cancer now s/p induction course of BCG. Here for surveillance cystoscopy. 03/13/2023:Here for f/u Tis Bladder Cancer now s/p induction course of BCG. Here for surveillance cystoscopy. Has been dealing with lower lumbar back issues. 06/13/2023:Here for f/u Tis Bladder Cancer now s/p induction course of BCG. Here for surveillance cystoscopy. No interval history change. Demetrius Rothman MD [address] [place] [address],[address], [place], [address], [facility] 06/13/2023 15:12:12 09/18/2023 text/html 05/29/2022:71yoM with history of hematuria, underwent in-office cystoscopy which noted area of patchy erythema. He underwent formal TURBT (05/13/2022) which confirmed diagnosis of non-invasive CIS. We are joined today in the call by his who provides some of the history. 09/11/2022:Here for f/u Tis Bladder Cancer now s/p induction course of BCG. Here for first surveillance cystoscopy. No issues with the BCG and no voiding symptoms/hematuria . 12/12/2022:Here for f/u Tis Bladder Cancer now s/p induction course of BCG. Here for surveillance cystoscopy. 03/13/2023:Here for f/u Tis Bladder Cancer now s/p induction course of BCG. Here for surveillance cystoscopy. Has been dealing with lower lumbar back issues. 06/13/2023:Here for f/u Tis Bladder Cancer now s/p induction course of BCG. Here for surveillance cystoscopy. No interval history change. 09/18/2023:Here for f/u Tis Bladder Cancer now s/p induction course of BCG. Here for surveillance cystoscopy. No interval history change. Demetrius Rothman MD [address] [place] [address],[address], [address], [facility] 09/18/2023 14:04:25 12/26/2023 text/html 05/29/2022:71yoM with history of hematuria, underwent in-office cystoscopy which noted area of patchy erythema. He underwent formal TURBT (05/13/2022) which confirmed diagnosis of non-invasive CIS. We are joined today in the call by his who provides some of the history. 09/11/2022:Here for f/u Tis Bladder Cancer now s/p induction course of BCG. Here for first surveillance cystoscopy. No issues with the BCG and no voiding symptoms/hematuria . 12/12/2022:Here for f/u Tis Bladder Cancer now s/p induction course of BCG. Here for surveillance cystoscopy. 03/13/2023:Here for f/u Tis Bladder Cancer now s/p induction course of BCG. Here for surveillance cystoscopy. Has been dealing with lower lumbar back issues. 06/13/2023:Here for f/u Tis Bladder Cancer now s/p induction course of BCG. Here for surveillance cystoscopy. No interval history change. 09/18/2023:Here for f/u Tis Bladder Cancer now s/p induction course of BCG. Here for surveillance cystoscopy. No interval history change. 12/26/2023:Here for f/u Tis Bladder Cancer now s/p induction course of BCG. Here for surveillance cystoscopy. No interval history change. Demetrius Rothman MD [address] [place] [address],[address], [address], [facility] 12/26/2023 17:00:33 04/14/2024 text/html 05/29/2022:71yoM with history of hematuria, underwent in-office cystoscopy which noted area of patchy erythema. He underwent formal TURBT (05/13/2022) which confirmed diagnosis of non-invasive CIS. We are joined today in the call by his who provides some of the history. 09/11/2022:Here for f/u Tis Bladder Cancer now s/p induction course of BCG. Here for first surveillance cystoscopy. No issues with the BCG and no voiding symptoms/hematuria . 12/12/2022:Here for f/u Tis Bladder Cancer now s/p induction course of BCG. Here for surveillance cystoscopy. 03/13/2023:Here for f/u Tis Bladder Cancer now s/p induction course of BCG. Here for surveillance cystoscopy. Has been dealing with lower lumbar back issues. 06/13/2023:Here for f/u Tis Bladder Cancer now s/p induction course of BCG. Here for surveillance cystoscopy. No interval history change. 09/18/2023:Here for f/u Tis Bladder Cancer now s/p induction course of BCG. Here for surveillance cystoscopy. No interval history change. 12/26/2023:Here for f/u Tis Bladder Cancer now s/p induction course of BCG. Here for surveillance cystoscopy. No interval history change. 04/14/2024:Here for f/u Tis Bladder Cancer now s/p induction course of BCG. Here for surveillance cystoscopy. No interval history change. Demetrius Rothman MD [address] [facility], [place], [address], [facility] 04/14/2024 16:16:32 07/22/2024 text/html 05/29/2022:71yoM with history of hematuria, underwent in-office cystoscopy which noted area of patchy erythema. He underwent formal TURBT (05/13/2022) which confirmed diagnosis of non-invasive CIS. We are joined today in the call by his who provides some of the history. 09/11/2022:Here for f/u Tis Bladder Cancer now s/p induction course of BCG. Here for first surveillance cystoscopy. No issues with the BCG and no voiding symptoms/hematuria . 12/12/2022:Here for f/u Tis Bladder Cancer now s/p induction course of BCG. Here for surveillance cystoscopy. 03/13/2023:Here for f/u Tis Bladder Cancer now s/p induction course of BCG. Here for surveillance cystoscopy. Has been dealing with lower lumbar back issues. 06/13/2023:Here for f/u Tis Bladder Cancer now s/p induction course of BCG. Here for surveillance cystoscopy. No interval history change. 09/18/2023:Here for f/u Tis Bladder Cancer now s/p induction course of BCG. Here for surveillance cystoscopy. No interval history change. 12/26/2023:Here for f/u Tis Bladder Cancer now s/p induction course of BCG. Here for surveillance cystoscopy. No interval history change. 04/14/2024:Here for f/u Tis Bladder Cancer now s/p induction course of BCG. Here for surveillance cystoscopy. No interval history change. 07/22/2024:Here for f/u Tis Bladder Cancer now s/p induction course of BCG. Here for surveillance cystoscopy. No interval history change. Demetrius Rothman MD [address] [facility],[address], [place], [address], [facility] 07/22/2024 13:20:18
--- OUTSIDE RECORDS SUMMARY | 2024-08-26 13:47 | XMS_ITS | Referral Summary ---
Author Organization [facility] Address [address] [place] [address]. 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 Yes 05/13/2022 7:05 AM CDT LABORATORY Blood STRUCTURE OF RIGHT UPPER LIMB / Unknown Venipuncture / Unknown 05/13/2022 6:02 AM CDT 05/13/2022 6:25 AM CDT us Mamadou Abarca MD LAB - BLOOD ORDERABLES Final Result LABORATORY [facility] [address] floor, [address] [place] [address], [place] [phone] from Last 3 Months or Most Recently Relevant to Health Maintenance Insurance [facility] MEDICARE Care Teams Parts Back Counter Man Relationship Specialty Start Date End Date Lamberto Padilla [address] [place] [id number] PCP - General Family Medicine 04/23/22
--- OUTSIDE RECORDS SUMMARY | 2024-08-26 13:48 | XMS_ITS | Continuity of Care Document ---
Author Organization [place] - [facility], [facility] Address [address] [place] [address] Assessment Encounter Date Assessment Date Assessment LastModified by Organization Details LastModified Time 07/22/2024 07/22/2024 73 yoM with history Tis UCC s/p induction BCG completed 08/06/2022 [email or web address] Not available 07/12/2024 16:45:05 Plan of Treatment Reminders Order Date Submit Date Provider Last Modified By Organization Details Last Modified Time Details Appointments ESTABLISH ED 10 2024 10:10A M Demetrius Rothman MD Not available Not available Not available Lab urinalysi s, dipstick 2023 024 [email or web address] [facility], [address], [place], [address], 07/22/2024 11:58:15 Referral None recorded. Procedures None recorded. Surgeries None recorded. Imaging None recorded. Medication Orders None recorded. Patient TargetsNo targets recorded. Patient InstructionsNo instructions recorded. Reason for Referral None Reported. Results Created Date Observation Date Name Description Value Unit Range Abnormal Flag Note LastModifiedBy Organization Detail LastModifiedTime 07/22/2007/22/2024 urina lysis , dipst ick BLOOD Negati ve Not Available [facility] [address], [place], [address], 07/22/2024 11:44:08 07/22/2007/22/2024 urina lysis , dipst ick NITRITES Negati ve Not Available [facility] [address], [place], [address], 07/22/2024 11:44:08 07/22/2007/22/2024 urina lysis , dipst ick GLUCOSE 500 mg/dL Not Available [facility] [address], [place], [address], 07/22/2024 11:44:08 07/22/2007/22/2024 urina lysis , dipst ick p.H. 5.0 Not Available [facility] [address], [place], [address], 07/22/2024 11:44:08 07/22/2007/22/2024 urina lysis , dipst ick LEUKOCYTES Negati ve Not Available [facility] [address], [place], [address], 07/22/2024 11:44:08 Result Notes None recorded. Problems Name Problem SNOMED Code Status Onset Date Resolution Date Notes Provider Name and Address Organization Details Recorded Time Malignant neoplasm of urinary bladder 734602479 Active 022 Elizabeth yu [facility] 15:13:09 Problem Notes None recorded. Procedures Surgical History Date Name Laterality Status Provider Name and Address Organization Details Recorded Time 07/22/20 Cystoscopy- male completed Demetrius Rothman MD [address] [place] [address],[address], [place], [address], [facility] 07/22/2024 13:18:14 07/22/20 COMPLEX VISIT completed Demetrius Rothman MD [address] [place] [address],[address], [place], [address], [facility] 07/22/2024 08:18:58 07/22/20 Sulfa post Cysto completed Matilda Guevara [facility] 07/22/2024 11:44:41 04/14/20 Cystoscopy- male completed Demetrius Rothman MD [address] [place] [address],[address], [place], [address], [facility] 04/14/2024 16:16:01 04/14/20 24 COMPLEX VISIT completed Demetrius Rothman MD [address] [place] [address],[address], [place], [address], [facility] 04/14/2024 09:42:30 04/14/20 24 Sulfa post Cysto completed Matilda Gunn [facility] 04/14/2024 15:27:52 12/26/19 24 Cystoscopy- male completed Demetrius Rothman MD [address] [place] [address],[address], [place], [address], [facility] 12/26/2023 17:00:12 11/06/19 24 Colonoscopy completed Matilda Gunn [facility] 04/14/2024 15:27:10 09/18/20 23 Cystoscopy- male completed Demetrius Rothman MD [address] [place] [address],[address], [place], [address], [facility] 09/18/2023 14:03:55 09/18/20 23 Sulfa post Cysto completed Matilda Gunn [facility] 09/18/2023 10:55:00 06/13/20 23 Cystoscopy- male completed Demetrius Rothman MD [address] [place] [address],[address], [place], [address], [facility] 06/13/2023 15:11:40 03/13/20 23 Cystoscopy- male completed Demetrius Rothman MD [address] [place] [address],[address], [place], [address], [facility] 03/13/2023 12:06:00 03/13/20 23 Sulfa post Cysto completed Demetrius Rothman MD [address] [place] [address],[address], [place], [address], [facility] 03/13/2023 12:06:28 12/13/19 23 Cystoscopy- male completed Demetrius Rothman MD [address] [place] [address],[address], [place], [address], [facility] 12/12/2022 13:47:37 09/11/20 22 Cystoscopy- male completed Demetrius Rothman MD [address] [place] [address],[address], [place], [address], [facility] 09/11/2022 12:19:20 09/11/20 22 Cipro post Cysto completed Matilda Gunn [facility] 09/11/2022 12:17:16 08/06/20 22 BCG Full Dose Tx 50mg completed Amy Nahed [facility] 08/06/2022 14:24:24 07/30/20 22 BCG Full Dose Tx 50mg completed Amy Carbajaling [facility] 07/30/2022 15:04:41 07/23/20 22 BCG Full Dose Tx 50mg completed Cecily Quilesometelsa [facility] 07/23/2022 15:09:26 07/16/20 22 BCG Full Dose Tx 50mg completed Cecily Quilesometa [facility] 07/16/2022 15:50:27 07/09/20 22 BCG Full Dose Tx 50mg completed Cecily Quilesometa [facility] 07/09/2022 15:08:36 07/02/20 22 BCG Full Dose Tx 50mg completed Elizabeth Eduardo [facility] 07/02/2022 15:15:42 05/13/20 22 TRANSURETHRAL RESECTION OF BLADDER TUMOR (SURG) completed Demetrius Rothman MD [address] [facility],[address], [place], [address], [facility] 05/29/2022 12:36:20 Imaging Results None recorded. Procedure [...] Ultra-Fine Short Pen Needle 31 gauge x 02/18 USE TO ADMINISTE R INSUILIN EVERY DAY [...] Available No t Available FreeStyle Rocco 2 [place] active Not Available Not Available Not Available insulin glargine-yf gn (U-100) 100 unit/mL (3 mL) subcutaneou s pen ADMINISTE R 20 UNITS UNDER THE SKIN EVERY EVENING 12/25 completed Not Available Not Available Not Available Vitals Date Recorded Body height Body mass index (BMI) Body weight Provider Name and Address Organization Details Last Updated DateTime 07/22/2024 177.8 cm 30.1 kg/m2 18425.4 g Spenser Zaldivar [facility] 07/22/2024 11:39:41 Social History Question Answer Notes LastModified by Organizat ion Details LastModified Time Tobacco Smoking Status Current Every Day Smoker Matilda yu [facility] 05/29/2022 11:05:22 What Is Your Level Of Alcohol Consumption? Occasional [email or web address] Information not available 05/29/2022 What Was The Date Of Your Most Recent Tobacco Screening? 07/22/2024 [email or web address] Information not available 07/22/2024 Sex: Unknown Functional Status None recorded. Mental Status None recorded. Family History Nothing Reported. Medical History Condition Response High Blood Pressure Y Diabetes Y Cancer Y High Cholesterol Y Immunizations Vaccine Type Date Status Provider Name and Address Organization Details Recorded Time COVID-19, mRNA, LNP-S, PF, 30 mcg/0.3 mL dose, coleen-sucrose 02/23/2022 completed Matilda yu [facility] 09/11/2022 11:52:26 COVID-19, mRNA, LNP-S, PF, 30 mcg/0.3 mL dose 12/25/2020 completed Matilda yu [facility] 09/11/2022 11:52:26 COVID-19, mRNA, LNP-S, PF, 30 mcg/0.3 mL dose 07/03/2021 completed Matilda Gunn null, [facility] 09/11/2022 11:52:26 Pneumococcal conjugate PCV 13 06/23/2017 completed Matilda Maxquist null, [facility] 09/11/2022 11:52:26 pneumococcal polysaccharide PPV23 12/07/2018 completed Matilda Maxquist null, [facility] 09/11/2022 11:52:26 COVID-19, mRNA, LNP-S, PF, 30 mcg/0.3 mL dose 12/01/2020 completed Matilda Maxquist null, [facility] 09/11/2022 11:52:26 Influenza, adjuvanted, trivalent, PF 06/16/2018 completed Юлия Ostepriscaauer null, [facility] 06/13/2023 14:41:38 Influenza, adjuvanted, trivalent, PF 06/23/2017 completed Юлия Osterbauer null, [facility] 06/13/2023 14:41:38 Influenza, adjuvanted, trivalent, PF 07/19/2019 completed Юлия Ostepriscaauer null, [facility] 06/13/2023 14:41:38 zoster recombinant 07/22/2020 completed Юлия Osterbauer null, [facility] 06/13/2023 14:41:38 zoster recombinant 09/20/2020 completed Юлия Osterbauer null, [facility] 06/13/2023 14:41:38 Influenza, adjuvanted, quadrivalent, PF 07/21/2022 completed Юлия Osterbauer null, [facility] 06/13/2023 14:41:38 Influenza, adjuvanted, quadrivalent, PF 07/22/2020 completed Юлия Osterbauer null, [facility] 06/13/2023 14:41:38 Influenza, adjuvanted, quadrivalent, PF 08/06/2021 completed Юлия Osterbauer null, [facility] 06/13/2023 14:41:38 Tdap 11/06/2015 completed Юлия Osterbauer null, [facility] 06/13/2023 14:41:38 zoster live 05/15/2012 completed Юлия Osterbauer null, [facility] 06/13/2023 14:41:38 Influenza, split virus, trivalent, preservative 11/06/2010 completed Юлия yu, [facility] 06/13/2023 14:41:38 Influenza, split virus, trivalent, preservative [facility]/01/2009 [facility] 14:41:38 Influenza, split virus, trivalent, preservative 08/19/2013 completed Юлия yu, [facility] 06/13/2023 14:41:38 Hep A, adult 02/16/2019 completed Юлия yu, [facility] 06/13/2023 14:41:38 Hep A, adult 05/25/2020 [facility]23 14:41:38 typhoid, ViCPs 02/16/2019 [facility]/13[facility]2023 14:41:38 Influenza, split virus, quadrivalent, PF 11/18/2016 [facility]2023 14:41:38 Influenza, split virus, quadrivalent, PF 07/19/2014 [facility]2023 14:41:38 Past Encounters Encounter ID Performer Location Encounter Start Date Encounter Closed Date Diagnosis/Indication Diagnosis SNOMED-CT Code Diagnosis ICD10 Code [id number] Demetrius Rothman MD [facility] [address] [place] [address] 07/22/2024 11:30:56 07/23/2024 14:50:24 Malignant neoplasm of urinary bladder 342922219 C67.9 Health Concerns Section Related Observation LastModified by Organization Detai ls LastModified Time None Recorded Concern Status LastModified by Organization Details LastModified Time None Recorded Payers Encounter Date Sequence Insurance Name Policy Number Policy Andres Covered Member ID Andres Member ID Guarantor Name 07/22/2024 1 [place] [employer] [employer] - MEDICARE COST [id number] Florentino Godfrey [id number] Florentino Godfrey Notes Date Note Type Note Provider Name and Address Organization Details Recorded Time 07/22/2024 text/html 05/29/2022:71yoM with history of hematuria, [...] history change. Demetrius Rothman MD [address] [facility],[address], [place], [address], [facility] 07/22/2024 13:20:18
--- NOTE | 2024-08-26 14:00 | PE_ITS ---
[facility] [address] [facility] [address] Phone:?[phone] Fax:?[phone] Referring Physician Information: Florentino Benito M.D. [address] [facility] [address] Phone:?[phone] Fax:?[phone] Patient:?Florentino Epifanio D.O.B:?1950 Sex:?Male Phone:?[phone] [facility] MRN:?[id number] Exam Date:?08/26/2024 EXAM: PET EYES TO THIGHS, CANCER INITIAL STAGING CLINICAL INFORMATION: Indeterminate pulmonary nodule. TECHNICAL INFORMATION: Helical acquisition of data was obtained from the orbits to the upper thighs with reconstruction of 3.75 mm thick images at 3.[address] data was used for attenuation correction. PET scanning was performed through the same anatomic range 62 minutes following administration of 11.68 mCi of 18-FDG delivered intravenously. The patient's glucose at the time of the injection was 82 mg/dL. PET, CT and PET/CT fusion images are interpreted using a computer viewing workstation. PET, CT and PET/CT fusion images were archived and saved in the patient's permanent medical record. COMPARISON: Lung cancer screening CT from 07/21/2024. INTERPRETATION: Head and Neck: Left parotid nodule (Se 2 Im 28) measures 0.8 x 0.6 cm with maximum SUV of 29.46. Right parotid nodule (Se 2 Im 32) measures 1.6 x 0.8 cm with maximum SUV of 33.67. Focal FDG uptake at the tip of the tongue may be physiologic; recommend visual inspection for any visible glossal/oropharyngeal lesions. There is physiologic uptake in the intracranial soft tissues. Chest: There are no abnormal hypermetabolic foci within the chest. Specifically, there is no abnormal FDG uptake corresponding to the patient's known 20 mm right basal lung nodule (Se 2 Im 138) which has a maximum SUV of 1.7. Background mediastinal blood pool uptake has a maximum SUV of 2.38. No other lung nodules or masses detected on this free-breathing exam. No lymphadenopathy detected. Abdomen and Pelvis: There are no abnormal hypermetabolic foci within the abdomen or pelvis. Background hepatic parenchymal uptake has a maximum SUV of 2.71. There is physiologic excretion of radiotracer in the urine and bowel. Skeleton, Musculature, and Integument: No abnormal hypermetabolic foci within the skeleton. No treasure osteoblastic or osteolytic disease. CONCLUSION: 1. The patient's right basal lung nodule has FDG uptake below that of mediastinal blood pool, suggesting a benign etiology (e.g., focal atelectasis). Recommend resumption of annual chest CT screening. 2. Bilateral parotid nodules have markedly increased FDG uptake, indeterminate but warranting further workup. Recommend bilateral parotid ultrasound; the right-sided nodule should be amenable to FNA; the left-sided nodule may be too small. Electronically signed on 08/27/2024 1:59:00 PM by Ed Acosta M.D.
== END 2024-08-26 13:45 | disposition home or self-care (01) ==
LOC: RAD 13:45
PROVIDERS: PCP Family Medicine; Visit Provider Family Medicine
DX: R91.1 Solitary pulmonary nodule (principal)
CPT/HCPCS: 78815; A9552

== ENCOUNTER 2024-09-15 07:09 | Outpatient (CLI) | payer MEDICARE, BC, SELFPAY ==
--- OUTSIDE RECORDS SUMMARY | 2024-09-15 07:11 | XMS_ITS | Clinical Summary ---
Author Organization [facility] Address [address] [place] [address]. 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 Yes 05/13/2022 7:05 AM CDT LABORATORY Blood STRUCTURE OF RIGHT UPPER LIMB / Unknown Venipuncture / Unknown 05/13/2022 6:02 AM CDT 05/13/2022 6:25 AM CDT Mamadou Abarca MD LAB - BLOOD ORDERABLES Final Result LABORATORY [facility] [address] 1[address] floor, [address] [place] [address], [facility] [phone] from Last 3 Months or Most Recently Relevant to Health Maintenance Insurance [facility] MEDICARE Care Teams Assessment Services Manager Relationship Specialty Start Date End Date Lamberto Padilla [address] [facility] [place] [address] PCP - General Family Medicine 04/23/22
--- OUTSIDE RECORDS SUMMARY | 2024-09-15 07:11 | XMS_ITS | Clinical Summary ---
Author Organization [facility] Address [place], [place] [address] Care Team Providers Care Unit Secy Name Role Phone Unavailable Primary Care Provider Unavailabl e Allergies Active Allergy Reactions Criticality Noted Date Comments Jett Inhibitors Cough 12/15/2008 Medications MULTIVITAMIN TAB take 1 tablet by oral route once daily with food 0 02/06/20 07 Active ASPIRIN 81 MG TAB, DELAYED RELEASEIndications :Routine general medical examination at a health care facility take 1 tablet (81mg) by oral route once daily 0 02/06/20 07 Active blood-glucose meterIndications:U ncontrolled type 2 diabetes mellitus without complication, without long-term current use of insulin Dispense meter, test strips, lancets covered by pt ins. E11.65 NIDDM type II, uncontrolled - Test 2 times/day. Reason: High A1C 1 Device 11/21/19 17 Active lancetsIndications :Uncontrolled type 2 diabetes mellitus without complication, without long-term current use of insulin Dispense item covered by pt ins. E11.65 NIDDM type II, uncontrolled - Test 2 times/day. Reason: High A1C 100 Each 12 12/08/19 19 Active sertraline (ZOLOFT) 100 mg tabletIndications: Dysthymia Take 2 Tablets (200 mg) by mouth once daily. 180 tablet. 3 12/07/19 22 Active metFORMIN (GLUCOPHAGE XR) 500 mg Extended-Release tabletIndications: Controlled type 2 diabetes mellitus without complication, without long-term current use of insulin (HC) Take 4 Tablets (2,000 mg) by mouth once daily. 360 tablet. 3 12/07/19 22 Active losartan (COZAAR) 100 mg tabletIndications: Essential hypertension Take 1 Tablet (100 mg) by mouth once daily. 90 Tablet 3 12/07/19 22 Active glimepiride (AMARYL) 4 mg tabletIndications: Controlled type 2 diabetes mellitus without complication, without long-term current use of insulin (HC) Take 2 Tablets (8 mg) by mouth once daily with a meal. 180 tablet. 3 12/07/19 22 Active blood sugar diagnostic (MeituTouch Ultra Test) stripIndications:C ontrolled type 2 diabetes mellitus without complication, without long-term current use of insulin (HC) TEST ONCE A DAY 100 Each 3 12/07/19 22 Active varenicline (CHANTIX DOSEPAK) 0.5 mg (11)- 1 mg (42) tabletIndications: Tobacco use Days 1-3 take 0.5mg once daily; Days 4-7 take 0.5mg twice daily; then increase to 1mg twice daily. Take with meals. 1 Packet 09/16/20 22 Active varenicline (CHANTIX) 1 mg tabletIndications: Tobacco use Take 1 mg by mouth two times daily with meals. 84 Tablet 1 09/16/20 22 Active atorvastatin (LIPITOR) 40 mg tabletIndications: Essential hypertension,Hyper lipidemia, unspecified hyperlipidemia type TAKE 1 TABLET(40 MG) BY MOUTH AT BEDTIME 60 Tablet 04/01/20 23 Active Active Problems Problem Noted Date Diagnosed [...] Name Administration Dates Next Due COVID-19 vaccine (51fanli NTech 30mcg/0.3mL) PF, MDV 12/25/2020,12/01/2020 Hepatitis A (Adult) [...] Relation Name Comments Diabetes Brother 1 Ja [facility] Brother 2 Casey Liver disease Brother 2 Casey liver transpla [facility] Brother 3 Cameron Cancer Father Throat/Lung Cancer [...] at Not on file 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 Gender Identity Not on file Sexual Orientation Not on file 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 Not on file Not on file Not on file Obstetrics History Last Filed [...] history exists Tetanus booster 11/06/2025 11/06/2015, 08/13/2005 RSV vaccine for adults or (1 - 1-dose 75+ series) 2026 Lipids for age 45-75 12/06/2026 12/06/2021, 01/09/2021, 05/25/2020, Additional history exists Tdap Completed 11/06/2015 Pneumococcal series for age 65+ Completed 9, 06/23/2017 Hepatitis C screening for ag e 18-79 Completed 05/25/2020 Zoster (shingles) series for age 50+ Completed 09/20/2020, 07/22/2020, 05/15/2012 Medical Devices Implanted Type Area Welding Rod Coater Device Identifier Shelf Expiration Date Model / Serial / Lot Mesh Surgical 3in X 6in - [id number] Implanted:Qty: 1 on 12/06/2014 by Jaxon Adams MD at [facility] D-ATRIUM 08/05/2019 [id number] / / [id number] Procedures Procedure Name Priority Date/Time Associated Diagnosis Comments LIPID PANEL W REFLEX MEASURED LDL Routine 12/06/2021 1:51 PM ICE SELLER Hyperlipidemia, unspecified hyperlipidemia type ANTI HCV Routine 05/25/2020 8:17 AM CDT Routine general medical examination at a health care facility COLONOSCOPY 12/10/2018 10:48 AM ICE SELLER from Last 3 Months or Most Recently Relevant to Health Maintenance Results * LIPID PANEL W REFLEX MEASURED LDL (12/06/2021 1:51 PM ICE SELLER) CHOLESTEROL,TOTAL 142 100 - 199 mg/dL 12/06/2021 2:35 PM ICE SELLER [facility] TRIGLYCERIDES 86 <150 mg/dL 12/06/2021 2:35 PM [facility] HDL CHOLESTEROL 68 >40 mg/dL 2:35 PM [facility] NON-HDL CHOLESTEROL 74 <145 mg/dl 12/06/2021 2:35 PM [facility] CHOL/HDL RATIO 2.09 <4.50 12/06/2021 2:35 PM [facility] LDL CHOLESTEROL 57 <=130 mg/dL 12/06/2021 2:35 PM [facility] VLDL CHOLESTEROL 17 <=30 mg/dL 12/06/2021 2:35 PM [facility] PROVIDER ORDERED STATUS RANDOM 12/06/2021 2:35 PM [facility] Blood BLOOD SPECIMEN / Unknown Venipuncture / Unknown 12/06/2021 1:51 PM ICE SELLER 12/06/2021 1:54 PM ICE SELLER Lamberto Padilla MD CHEMISTRY Final [facility] [address] [place] [address] * ANTI HCV (05/25/2020 8:17 AM CDT) HEPATITIS C ANTIBODY Non-React jayesh Non-React jayesh 05/25/2020 4:33 PM CDT [facility] Comment:Antibodies to HCV no t detected; does not exclude the possibility of exposure to HCV. Blood BLOOD SPECIMEN / Unknown Venipuncture / Unknown 05/25/2020 8:17 AM CDT 05/25/2020 8:20 AM CDT Lamberto Padilla MD SEND OUTS Final R esult [facility] [address] [place] [address], [place] * COLONOSCOPY (12/10/2018 10:48 AM ICE SELLER) 12/10/2018 10:4 8 AM ICE SELLER Narrative Transcriptions Jaxon Adams MD - 12/10/2018 11:52 AM CST Patient Name: Florentino Godfrey Procedure Date: 12/10/2018 Gender: Male Date of : 1950 Admit Type: Ambulatory Procedure: Colonoscopy Proceduralist: Jaxon Adams [facility] Indications/Pre-Op Diagnosis: High risk colon cancer surveillance:Personal [...] 10:48 AM Jaxon Adams MD PROCEDURE ORD Final Res ult from Last 3 Months or Most Recently Relevant to Health Maintenance Insurance [facility] MEDICARE PART A HB ONLY Advance Directives Documents on File Type Date Recorded Patient Strand Galvanizer Expl anation FARHAT 12/10/2018 11:41 AM POL, 01/2019 Healthcare Directive 06/16/2018 018 * Full Code (Latest Code Status on File) Date Activated Date Inactivated Comments 12/06/2014 11:05 AM 12/06/2014 3:50 PM * Full Code Date Activated Date Inactivated Comments 12/05/2014 12:28 PM 12/06/2014 11:05 AM
--- OUTSIDE RECORDS SUMMARY | 2024-09-15 07:11 | XMS_ITS | Referral Summary ---
Author Organization [facility] Address [address] [place] [address]. 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 Yes 05/13/2022 7:05 AM CDT LABORATORY Blood STRUCTURE OF RIGHT UPPER LIMB / Unknown Venipuncture / Unknown 05/13/2022 6:02 AM CDT 05/13/2022 6:25 AM CDT us Mamadou Abarca MD LAB - BLOOD ORDERABLES Final Result LABORATORY [facility] [address] 1[address] floor, [address] [place] [address], [place] [phone] from Last 3 Months or Most Recently Relevant to Health Maintenance Insurance [facility] MEDICARE Care Teams Refrigeration Plant Operator Relationship Specialty Start Date End Date Lamberto Padilla [address] [place] [id number] PCP - General Family Medicine 04/23/22
--- OUTSIDE RECORDS SUMMARY | 2024-09-15 07:12 | XMS_ITS | Continuity of Care Document ---
Author Organization [place] [facility] Address [address] [place] [address] Assessment Encounter Date Assessment Date Assessment LastModified by Organization Details LastModified Time 07/22/2024 07/22/2024 73 yoM with history Tis UCC s/p induction BCG completed 08/06/2022 [email or web address] Not available 07/12/2024 16:45:05 Plan of Treatment Reminders Order Date Submit Date Provider Last Modified By Organization Details Last Modified Time Details Appointments ESTABLISH ED 10 2024 10:10A M Demetrius Rothman MD Not available Not available Not available Lab urinalysi s, dipstick 2023 024 [email or web address] [facility], [address], [place], [address], 07/22/2024 11:58:15 Referral None recorded. Procedures None [...] Not Available [facility] [address], [place], [address], 07/22/2024 11:44:08 07/22/2007/22/2024 urina lysis , dipst ick NITRITES Negati ve Not Available [facility] [address], [place], [address], 07/22/2024 11:44:08 07/22/2007/22/2024 urina lysis , dipst ick GLUCOSE 500 mg/dL Not Available [facility] [address], [place], [address], 07/22/2024 11:44:08 07/22/2007/22/2024 urina lysis , dipst ick p.H. 5.0 Not Available [facility] [address], [place], [address], 07/22/2024 11:44:08 07/22/2007/22/2024 urina lysis , dipst ick LEUKOCYTES Negati ve Not Available [facility] [address], [place], [address], 07/22/2024 11:44:08 Result Notes None recorded. Problems Name Problem SNOMED Code Status Onset Date Resolution Date Notes Provider Name and Address Organization Details Recorded Time Malignant neoplasm of urinary bladder 593469694 Active 022 Elizabeth yu [facility] 15:13:09 Problem Notes None recorded. Procedures Surgical History Date Name Laterality Status Provider Name and Address Organization Details Recorded Time 07/22/20 Cystoscopy- male completed Demetrius Rothman MD [address] [place] [address],[address], [address], [facility] 07/22/2024 13:18:14 07/22/20 COMPLEX VISIT completed Demetrius Rothman MD [address] [place] [address],[address], [address], [facility] 07/22/2024 08:18:58 07/22/20 Sulfa post Cysto completed Matilda Guevara [facility] 07/22/2024 11:44:41 04/14/20 Cystoscopy- male completed Demetrius Rothman MD [address] [place] [address],[address], [address], [facility] 04/14/2024 16:16:01 04/14/20 24 COMPLEX VISIT completed Demetrius Rothman MD [address] [place] [address],[address], [place], [address], [facility] 04/14/2024 09:42:30 04/14/20 24 Sulfa post Cysto completed Matilda Gunn [facility] 04/14/2024 15:27:52 12/26/19 24 Cystoscopy- male completed Demetrius Rothman MD [address] [place] [address],[address], [place], [address], [facility] 12/26/2023 17:00:12 11/06/19 24 Colonoscopy completed Matilda Gunn [facility] 04/14/2024 15:27:10 09/18/20 23 Cystoscopy- male completed Demetrius Rothman MD [address] [place] [address],[address], [place], [address], [facility] 09/18/2023 14:03:55 09/18/20 23 Sulfa post Cysto completed Matilda Gunn [facility] 09/18/2023 10:55:00 06/13/20 23 Cystoscopy- male completed Demetrius Rothman MD [address] [place] [address],[address], [place], [address], [facility] 06/13/2023 15:11:40 03/13/20 23 Cystoscopy- male completed Demetrius Rothman MD [address] [place] [address],[address], [place], [address], [facility] 03/13/2023 12:06:00 03/13/20 23 Sulfa post Cysto completed Demetrius Rothman MD [address] [place] [address],[address], [place], [address], [facility] 03/13/2023 12:06:28 12/13/19 23 Cystoscopy- male completed Demetrius Rothman MD [address] [place] [address],[address], [place], [address], [facility] 12/12/2022 13:47:37 09/11/20 22 Cystoscopy- male completed Demetrius Rothman MD [address] [place] [address],[address], [place], [address], [facility] 09/11/2022 12:19:20 09/11/20 22 Cipro post Cysto completed Matilda Gunn [facility] 09/11/2022 12:17:16 08/06/20 22 BCG Full Dose Tx 50mg completed Amy Nahed [facility] 08/06/2022 14:24:24 07/30/20 22 BCG Full Dose Tx 50mg completed Amy Carbajaling [facility] 07/30/2022 15:04:41 07/23/20 22 BCG Full Dose Tx 50mg completed Cecily Quilesometelsa [facility] 07/23/2022 15:09:26 07/16/20 22 BCG Full Dose Tx 50mg completed Cecily Quilesometa [facility] 07/16/2022 15:50:27 07/09/20 22 BCG Full Dose Tx 50mg completed Cecily Quilesometa [facility] 07/09/2022 15:08:36 07/02/20 22 BCG Full Dose Tx 50mg completed Elizabeth Eduardo [facility] 07/02/2022 15:15:42 05/13/20 22 TRANSURETHRAL RESECTION OF BLADDER TUMOR (SURG) completed Demetrius Rothman MD [address] [facility],[address], [place], [address], [facility] 05/29/2022 12:36:20 Imaging Results None [...] Available No t Available [employer] [place] [address] [place] active Not Available Not Available Not Available insulin glargine-yf gn (U-100) 100 unit/mL (3 mL) subcutaneou s pen ADMINISTE R 20 UNITS UNDER THE SKIN EVERY EVENING 12/25 completed Not Available Not Available Not Available Vitals Date Recorded Body height Body mass index (BMI) Body weight Provider Name and Address Organization Details Last Updated DateTime 07/22/2024 177.8 cm 30.1 kg/m2 62374.4 g Spenser Zaldivar [facility] 07/22/2024 11:39:41 Social History Question Answer Notes LastModified by Organizat ion Details LastModified Time Tobacco Smoking Status Current Every Day Smoker Matilda yu [facility] 05/29/2022 11:05:22 What Is Your Level Of Alcohol Consumption? Occasional [email or web address] Information not available 05/29/2022 What Was The Date Of Your Most Recent Tobacco Screening? 07/22/2024 [email or web address] Information not available 07/22/2024 Sex: Unknown Functional Status None recorded. Mental Status None recorded. Family History Nothing Reported. Medical History Condition Response Diabetes Y High Blood Pressure Y High Cholesterol Y Cancer Y Immunizations Vaccine Type Date Status Note Provider Nam e and Address Organization Details Recorded Time COVID-19, mRNA, LNP-S, PF, 30 mcg/0.3 mL dose, coleen-sucrose 2 completed Matilda yu [facility] 09/11/2022 11:52:26 COVID-19, mRNA, LNP-S, PF, 30 mcg/0.3 mL dose 1 completed Matilda yu [facility] 09/11/2022 11:52:26 COVID-19, mRNA, LNP-S, PF, 30 mcg/0.3 mL dose 1 completed Matilda Maxquist null, [facility] 09/11/2022 11:52:26 Pneumococcal conjugate PCV 13 7 completed Matilda Stromquist null, [facility] 09/11/2022 11:52:26 pneumococcal polysaccharide PPV23 9 completed Matilda Stromquist null, [facility] 09/11/2022 11:52:26 COVID-19, mRNA, LNP-S, PF, 30 mcg/0.3 mL dose 1 completed Matilda Stromquist null, [facility] 09/11/2022 11:52:26 Influenza, adjuvanted, trivalent, PF 8 completed Юлия Osterbauer null, [facility] 06/13/2023 14:41:38 Influenza, adjuvanted, trivalent, PF 7 completed Юлия Osterbauer null, [facility] 06/13/2023 14:41:38 Influenza, adjuvanted, trivalent, PF 9 completed Юлия Osterbauer null, [facility] 06/13/2023 14:41:38 zoster recombinant 0 completed Юлия Osterbauer null, [facility] 06/13/2023 14:41:38 zoster recombinant 0 completed Юлия Osterbauer null, [facility] 06/13/2023 14:41:38 Influenza, adjuvanted, quadrivalent, PF 2 completed Юлия Osterbauer null, [facility] 06/13/2023 14:41:38 Influenza, adjuvanted, quadrivalent, PF 0 completed Юлия Osterbauer null, [facility] 06/13/2023 14:41:38 Influenza, adjuvanted, quadrivalent, PF 1 completed Юлия Osterbauer null, [facility] 06/13/2023 14:41:38 Tdap 6 completed Юлия Osterbauer null, [facility] 06/13/2023 14:41:38 zoster live 2 completed Юлия Osterbauer null, [facility] 06/13/2023 14:41:38 Influenza, split virus, trivalent, preservative 1 completed Юлия Lópezauer gigi, [facility] 06/13/2023 14:41:38 Influenza, split virus, trivalent, preservative 9 completed Юлия Lópezauer gigi, [facility] 06/13/2023 14:41:38 Influenza, split virus, trivalent, preservative 3 completed Юлия Lópezauer null, [facility] 06/13/2023 14:41:38 Hep A, adult 9 completed Юлия Lópezauer gigi, [facility] 06/13/2023 14:41:38 Hep A, adult [facility] 14:41:38 typhoid, ViCPs 9 [facility] 06/13/2023 14:41:38 Influenza, split virus, quadrivalent, PF 7 completed Юлия Lópezauer gigi, [facility] 06/13/2023 14:41:38 Influenza, split virus, quadrivalent, PF 4 [facility] 06/13/2023 14:41:38 Past Encounters Encounter ID Performer Location Encounter Start Date Encounter Closed Date Diagnosis/Indication Diagnosis SNOMED-CT Code Diagnosis ICD10 Code [id number] Demetrius Rothman MD [facility] [address] [place] [address] 07/22/2024 11:30:56 07/23/2024 14:50:24 Malignant neoplasm of urinary bladder 928181858 C67.9 Health Concerns Section Related Observation LastModified by Organization Detai ls LastModified Time None Recorded Concern Status LastModified by Organization Details LastModified Time None Recorded Payers Encounter Date Sequence Insurance Name Policy Number Policy Andres Covered Member ID Andres Member ID Guarantor Name 07/22/2024 1 [place] MEDICARE COST [id number] Florentino Godfrey [id number] Florentino Epifanio Notes Date Note Type Note Provider Name [...] No interval history change. Demetrius Rothman MD [address] [place] [address],[address], [place], [address], [facility] 07/22/2024 13:20:18
--- OUTSIDE RECORDS SUMMARY | 2024-09-15 07:12 | XMS_ITS | Data Portability ---
Author Organization [place] [facility] Address [address] [facility] [address] [place] [address] Assessment Encounter Date Assessment Date Assessment LastModified [...] Tis UCC s/p induction BCG completed 08/06/2022 [email or web address] Not available 07/12/2024 16:45:05 Plan of Treatment Reminders Order Date Submit Date Provider Last Modified By Organization Details Last Modified Time Details Appointments ESTABLI SHED 10 2024 10:10A M Demetrius Rothman MD Not available Not available Not available Lab urinaly sis, dipstic k 2022 023 marco [facility], [address], [place], [address], 06/13/2023 14:43:25 urinaly sis, dipstic k 2022 023 [email or web address] [facility], [address], [place], [address], 09/18/2023 10:54:47 cytolog y, urine 2022 023 EMY [facility], [address], [place], [address], 09/22/2023 16:04:28 urinaly sis, dipstic k 2023 024 [email or web address] [facility], [address], [place], [address], 12/26/2023 15:08:44 urinaly sis, dipstic k 2023 024 [email or web address] [facility], [address], [place], [address], 04/14/2024 15:27:57 urinaly sis, dipstic k 2023 024 [email or web address] [facility], [address], [place], [address], 07/22/2024 11:58:15 Referral None recorde d. Procedures [...] Available [facility] [address], [place], [address], 06/13/2023 14:42:39 06/13/20 23 06/13/2023 urina lysis , dipst ick Clarity-Stat us Clear Not Available [facility] [address], [place], [address], 06/13/2023 14:42:39 06/13/20 23 06/13/2023 urina lysis , dipst ick Glucose-Stat us Negati ve Not Available [facility] [address], [place], [address], 06/13/2023 14:42:39 06/13/20 23 06/13/2023 urina lysis , dipst ick Bilirubin-St atus Small Not Available [facility] [address], [place], [address], 06/13/2023 14:42:39 06/13/20 23 06/13/2023 urina lysis , dipst ick Ketones-Stat us Negati ve Not Available [facility] [address], [place], [address], 06/13/2023 14:42:39 06/13/20 23 06/13/2023 urina lysis , dipst ick Nitrates-Sta tus negati ve Not Available [facility] [address], [place], [address], 06/13/2023 14:42:39 06/13/20 23 06/13/2023 urina lysis , dipst ick Blood-Status Negati ve Not Available [facility] [address], [place], [address], 06/13/2023 14:42:39 06/13/20 23 06/13/2023 urina lysis , dipst ick Leuko-Status Negati ve Not Available [facility] [address], [place], [address], 06/13/2023 14:42:39 06/13/20 23 06/13/2023 urina lysis , dipst ick Specimen Type Voided Not Available [facility] [address], [place], [address], 06/13/2023 14:42:39 09/18/20 23 09/18/2023 urina lysis , dipst ick pH-Status 6.0 Not Available [facility] [address], [place], [address], 09/18/2023 10:54:12 09/18/20 23 09/18/2023 urina lysis , dipst ick Nitrates-Sta tus negati ve Not Available [facility] [address], [place], [address], 09/18/2023 10:54:12 09/18/20 23 09/18/2023 urina lysis , dipst ick Blood-Status Negati ve Not Available [facility] [address], [place], [address], 09/18/2023 10:54:12 09/18/20 23 09/18/2023 urina lysis , dipst ick Leuko-Status Negati ve Not Available [facility] [address], [place], [address], 09/18/2023 10:54:12 09/18/20 23 09/18/2023 urina lysis , dipst ick Specimen Type Voided Not Available [facility] [address], [place], [address], 09/18/2023 10:54:12 12/26/19 24 12/26/2023 urina lysis , dipst ick pH-Status 5.5 Not Available [facility] [address], [place], [address], 12/26/2023 15:05:16 12/26/19 24 12/26/2023 urina lysis , dipst ick Nitrates-Sta tus negati ve Not Available [facility] [address], [place], [address], 12/26/2023 15:05:16 12/26/19 24 12/26/2023 urina lysis , dipst ick Blood-Status Negati ve Not Available [facility] [address], [place], [address], 12/26/2023 15:05:16 12/26/19 24 12/26/2023 urina lysis , dipst ick Leuko-Status Negati ve Not Available [facility] [address], [place], [address], 12/26/2023 15:05:16 12/26/19 24 12/26/2023 urina lysis , dipst ick Specimen Type Voided Not Available [facility] [address], [place], [address], 12/26/2023 15:05:16 04/14/20 24 04/14/2024 urina lysis , dipst ick BLOOD Negati ve Not Available [facility] [address], [place], [address], 04/14/2024 09:08:52 04/14/20 24 04/14/2024 urina lysis , dipst ick NITRITES Negati ve Not Available [facility] [address], [place], [address], 04/14/2024 09:08:52 04/14/20 24 04/14/2024 urina lysis , dipst ick GLUCOSE >2000 mg/dL Not Available [facility] [address], [place], [address], 04/14/2024 09:08:52 04/14/20 24 04/14/2024 urina lysis , dipst ick p.H. 5.0 Not Available [facility] [address], [place], [address], 04/14/2024 09:08:52 04/14/20 24 04/14/2024 urina lysis , dipst ick LEUKOCYTES Negati ve Not Available [facility] [address], [place], [address], 04/14/2024 09:08:52 07/22/2007/22/2024 urina lysis , dipst ick BLOOD Negati ve Not Available [facility] [address], [place], [address], 07/22/2024 11:44:08 07/22/2007/22/2024 urina lysis , dipst ick NITRITES Negati ve Not Available [facility] [address], [place], [address], 07/22/2024 11:44:08 07/22/2007/22/2024 urina lysis , dipst ick GLUCOSE 500 mg/dL Not Available [facility] [address], [place], [address], 07/22/2024 11:44:08 07/22/2007/22/2024 urina lysis , dipst ick p.H. 5.0 Not Available [facility] [address], [place], [address], 07/22/2024 11:44:08 07/22/2007/22/2024 urina lysis , dipst ick LEUKOCYTES Negati ve Not Available [facility] [address], [place], [address], 07/22/2024 11:44:08 Result Notes None recorded. Problems Name Problem SNOMED Code Status Onset Date Resolution Date Notes Provider Name and Address Organization Details Recorded Time Malignant neoplasm of urinary bladder 902940305 Active 022 [facility] Clark [facility] 15:13:09 Problem Notes None recorded. Procedures Surgical History Date Name Laterality Status Provider Name and Address Organization Details Recorded Time 07/22/20 24 Cystoscopy- male completed Demetrius Rothman MD [address] [place] [address],[address], [address], [facility] 07/22/2024 13:18:14 07/22/20 24 COMPLEX VISIT completed Demetrius Rothman MD [address] [place] [address],[address], [address], [facility] 07/22/2024 08:18:58 07/22/20 24 Sulfa post Cysto completed Matilda Guevara [facility] 07/22/2024 11:44:41 04/14/20 24 Cystoscopy- male completed Demetrius Rothman MD [address] [place] [address],[address], [place], [address], [facility] 04/14/2024 16:16:01 04/14/20 24 COMPLEX VISIT completed Demetrius Rothman MD [address] [place] [address],[address], [place], [address], [facility] 04/14/2024 09:42:30 04/14/20 24 Sulfa post Cysto completed Matilda Gunn [facility] 04/14/2024 15:27:52 12/26/19 24 Cystoscopy- male completed Demetrius Rothman MD [address] [place] [address],[address], [place], [address], [facility] 12/26/2023 17:00:12 11/06/19 24 Colonoscopy completed [facility] 04/14/2024 15:27:10 09/18/20 23 Cystoscopy- male completed Demetrius Rothman MD [address] [place] [address],[address], [address], [facility] 09/18/2023 14:03:55 09/18/20 23 Sulfa post Cysto completed Matilda Gunn [facility] 09/18/2023 10:55:00 06/13/20 23 Cystoscopy- male completed Demetrius Rothman MD [address] [facility],[address], [place], [address], [facility] 06/13/2023 15:11:40 03/13/20 23 Cystoscopy- male completed Demetrius Rothman MD [address] [place] [address],[address], [place], [address], [facility] 03/13/2023 12:06:00 03/13/20 23 Sulfa post Cysto completed Demetrius Rothman MD [address] [place] [address],[address], [place], [address], [facility] 03/13/2023 12:06:28 12/13/19 23 Cystoscopy- male completed Demetrius Rothman MD [address] [place] [address],[address], [place], [address], [facility] 12/12/2022 13:47:37 09/11/20 22 Cystoscopy- male completed Demetrius Rothman MD [address] [place] [address],[address], [place], [address], [facility] 09/11/2022 12:19:20 09/11/20 22 Cipro post Cysto completed Matilda Gnun [facility] 09/11/2022 12:17:16 08/06/20 22 BCG Full Dose Tx 50mg completed Amy Dockery [facility] 08/06/2022 14:24:24 07/30/20 22 BCG Full Dose Tx 50mg completed Amy Dockery [facility] 07/30/2022 15:04:41 07/23/20 22 BCG Full Dose Tx 50mg completed Cecily Rosales [facility] 07/23/2022 15:09:26 07/16/20 22 BCG Full Dose Tx 50mg completed Cecily Rosales [facility] 07/16/2022 15:50:27 07/09/20 22 BCG Full Dose Tx 50mg completed Cecily Rosales [facility] 07/09/2022 15:08:36 07/02/20 22 BCG Full Dose Tx 50mg completed Elizabeth Clark [facility] 07/02/2022 15:15:42 05/13/20 22 TRANSURETHRAL RESECTION OF BLADDER TUMOR (SURG) completed Demetrius Rothman MD [address] [facility],[address], [place], [address], [facility] 05/29/2022 12:36:20 Imaging Results None recorded. [...] Available No t Available FreeStyle [place] [address] [place] active Not Available Not Available Not Available insulin glargine-yf gn (U-100) 100 unit/mL (3 mL) subcutaneou s pen ADMINISTE R 20 UNITS UNDER THE SKIN EVERY EVENING 12/25 completed Not Available Not Available Not Available Vitals Date Recorded Body height Body mass index (BMI) Body weight Provider Name and Address Organization Details Last Updated DateTime 06/13/2023 177.8 cm 29.4 kg/m2 72822.44 g Юлия Hutson [facility] 06/13/2023 14:41:30 Date Recorded Body height Body mass index (BMI) Body weight Provider Name and Address Organization Details Last Updated DateTime 09/18/2023 177.8 cm 29.4 kg/m2 [address]147.[address] [facility] 09/18/2023 10:48:16 Date Recorded Body height Body mass index (BMI) Body weight Provider Name and Address Organization Details Last Updated DateTime 12/26/2023 177.8 cm 30.1 kg/m2 [address] [facility] 12/26/2023 15:07:10 Date Recorded Body height Body mass index (BMI) Body weight Provider Name and Address Organization Details Last Updated DateTime 04/14/2024 177.8 cm 30.1 kg/m2 57718.[address] [facility] 04/14/2024 15:26:18 Date Recorded Body height Body mass index (BMI) Body weight Provider Name and Address Organization Details Last Updated DateTime 07/22/2024 177.8 cm 30.1 kg/m2 [address]241.[address] [facility] 07/22/2024 11:39:41 Social History Question Answer Notes LastModified by Organizat ion Details LastModified Time Tobacco Smoking Status Current Every Day Smoker Matilda yu [facility] 05/29/2022 11:05:22 What Is Your Level [...] Cholesterol Y Immunizations Vaccine Type Date Status Note Provider Nam e and Address Organization Details Recorded Time COVID-19, mRNA, LNP-S, PF, 30 mcg/0.3 mL dose, coleen-sucrose [address] [facility] 09/11/2022 11:52:26 COVID-19, mRNA, LNP-S, PF, 30 mcg/0.3 mL dose [address] [facility] 09/11/2022 11:52:26 COVID-19, mRNA, LNP-S, PF, 30 mcg/0.3 mL dose 1 completed Matilda Stromquist null, [facility] 09/11/2022 11:52:26 Pneumococcal conjugate PCV 13 7 completed Matilda Stromquist null, [facility] 09/11/2022 11:52:26 pneumococcal polysaccharide PPV23 9 completed Matilda Stromquist null, [facility] 09/11/2022 11:52:26 COVID-19, mRNA, LNP-S, PF, 30 mcg/0.3 mL dose 1 completed Matilda Stromquist null, [facility] 09/11/2022 11:52:26 Influenza, adjuvanted, trivalent, PF 8 completed Юлия Osterbauer null, [facility] 06/13/2023 14:41:38 Influenza, adjuvanted, trivalent, PF 7 completed Юлия Osterbauer null, [facility] 06/13/2023 14:41:38 Influenza, adjuvanted, trivalent, PF 9 completed Юлия Osterbauer null, [facility] 06/13/2023 14:41:38 zoster recombinant 0 completed Юлия Osterbauer null, [facility] 06/13/2023 14:41:38 zoster recombinant 0 completed Юлия Osterbauer null, [facility] 06/13/2023 14:41:38 Influenza, adjuvanted, quadrivalent, PF 2 completed Юлия Osterbauer null, [facility] 06/13/2023 14:41:38 Influenza, adjuvanted, quadrivalent, PF 0 completed Юлия Osterbauer null, [facility] 06/13/2023 14:41:38 Influenza, adjuvanted, quadrivalent, PF 1 completed Юлия Osterbauer null, [facility] 06/13/2023 14:41:38 Tdap 6 completed Юлия Osterbauer null, [facility] 06/13/2023 14:41:38 zoster live 2 completed Юлия Lópezauer null, [facility] 06/13/2023 14:41:38 Influenza, split virus, trivalent, preservative 1 completed Юлия Lópezauer null, [facility] 06/13/2023 14:41:38 Influenza, split virus, trivalent, preservative 9 completed Юлия Lópezauer null, [facility] 06/13/2023 14:41:38 Influenza, split virus, trivalent, preservative 3 completed Юлия Russrbauer null, [facility] 06/13/2023 14:41:38 Hep A, adult 9 completed Юлия Lópezauer null, [facility] 06/13/2023 14:41:38 Hep A, adult 0 completed Юлия Lópezauer gigi, [facility] 06/13/2023 14:41:38 typhoid, ViCPs 9 completed Юлия Lópezauer null, [facility] 06/13/2023 14:41:38 Influenza, split virus, quadrivalent, PF 7 completed Юлия Lópezauer null, [facility] 06/13/2023 14:41:38 Influenza, split virus, quadrivalent, PF 4 completed Юлия Lópezauer null, [facility] 06/13/2023 14:41:38 Past Encounters Encounter ID Performer Location Encounter Start Date Encounter Closed Date Diagnosis/Indication Diagnosis SNOMED-CT Code Diagnosis ICD10 Code [id number] MD EVY [facility] [address] [place] [address] 05/29/2022 11:02:29 05/31/2022 10:48:36 Malignant neoplasm of urinary bladder 497687423 C67.9 [id number] Elizabeth Clark [facility] [address] [place] [address] 07/02/2022 14:22:15 07/04/2022 15:51:32 Malignant neoplasm of urinary bladder 461268801 C67.9 [id number] Cecily Machometa [facility] [address] [place] [address] 07/09/2022 14:27:39 07/10/2022 13:04:58 Malignant neoplasm of urinary bladder 423438477 C67.9 [id number] Cecily Rosales [facility] [address] [place] [address] 07/16/2022 14:20:19 07/19/2022 08:06:11 Malignant neoplasm of urinary bladder 109477005 C67.9 [id number] Cecily Rosales [facility] [address] [place] [address] 07/23/2022 14:33:08 07/29/2022 10:13:11 Malignant neoplasm of urinary bladder 568040519 C67.9 [id number] Amy Dockery [facility] [address] [place] [address] 07/30/2022 14:29:10 08/01/2022 14:22:43 Malignant neoplasm of urinary bladder 395501694 C67.9 [id number] Amy Dockery [facility] [address] [place] [address] 08/06/2022 14:31:28 08/07/2022 13:07:40 Malignant neoplasm of urinary bladder 065762250 C67.9 [id number] Demetrius Rothman MD [facility] [address] [place] [address] 09/11/2022 11:49:55 09/13/2022 10:41:02 Malignant neoplasm of urinary bladder 045036861 C67.9 [id number] Demetrius Rothman MD [facility] [address] [place] [address] 12/12/2022 11:31:27 12/16/2022 09:24:25 Malignant neoplasm of urinary bladder 563007718 C67.9 [id number] Demetrius Rothman MD [facility] [address] [place] [address] 03/13/2023 11:38:40 03/18/2023 08:49:23 Malignant neoplasm of urinary bladder 523528896 C67.9 [id number] Demetrius Rothman MD [facility] [address] [place] [address] 06/13/2023 14:18:31 06/18/2023 16:06:09 Malignant neoplasm of urinary bladder 179559330 C67.9 [id number] Demetrius Rothman MD [facility] [address] [place] [address] 09/18/2023 10:41:50 09/25/2023 13:28:02 Malignant neoplasm of urinary bladder 709702843 C67.9 [id number] Demetrius Rothman MD [facility] [address] [place] [address] 12/26/2023 14:55:02 12/29/2023 09:55:33 Malignant neoplasm of urinary bladder 925621031 C67.9 [id number] [facility] [address] [place] [address] 04/14/2024 14:56:50 04/21/2024 13:42:02 Malignant neoplasm of urinary bladder 192014841 C67.9 [id number] [facility] [address] [place] [address] 07/22/2024 11:30:56 07/23/2024 14:50:24 Malignant neoplasm of urinary bladder 416221733 C67.9 Health Concerns Section Related Observation LastModified by Organization Detai ls LastModified Time None Recorded Concern Status LastModified by Organization Details LastModified Time None Recorded Advance Directives Directive None Recorded Payers Encounter Date Sequence Insurance Name Policy Number Policy Andres Covered Member ID Andres Member ID Guarantor Name 06/13/2023 2 [place] [employer] Florentino Godfrey [id number] Florentino Godfrey 06/13/2023 1 [place] [id number] Florentino Godfrey [id number] Florentino Godfrey 09/18/2023 1 [place] [id number] Florentino Godfrey [id number] Florentino Godfrey 12/26/2023 1 [place] [id number] Florentino Godfrey [id number] Florentino Godfrey 04/14/2024 1 [place] [id number] Florentino Godfrey [id number] Florentino Godfrey 07/22/2024 1 [place] [id number] Florentino Godfrey [id number] Florentino Godfrey Notes Date Note Type Note [...] No interval history change. Demetrius Rothman MD [address] [place] [address],[address], [place], [address], [facility] 06/13/2023 15:12:12 09/18/2023 text/html 05/29/2022:71yoM with [...] interval history change. Demetrius Rothman MD [address] [place] [address],[address] [place] [address], [address], [facility] 09/18/2023 14:04:25 12/26/2023 text/html 05/29/2022:71yoM with history [...] No interval history change. Demetrius Rothman MD [address] [place] [address],[address], [address], [facility] 12/26/2023 17:00:33 04/14/2024 text/html 05/29/2022:71yoM with [...] No interval history change. Demetrius Rothman MD [address] [place] [address],[address], [address], [facility] 04/14/2024 16:16:32 07/22/2024 text/html 05/29/2022:71yoM with [...] interval history change. Demetrius Rothman MD [address] [facility],[address], [place], [address], [facility] 07/22/2024 13:20:18
--- NOTE | 2024-09-15 07:15 | CRLHL7_ITS ---
For Patients: As a result of the Century Cures Act, medical imaging exams and procedure reports are released immediately into your electronic medical record. You may view this report before your referring provider. If you have questions, please contact your health care provider. Indication: Bilateral parotid masses on PET scan Technique: Grayscale and color Doppler ultrasound of the parotid gland is performed. Comparison: CT-PET 08/26/2024 Findings: Solid lobular hypoechoic right intraparotid mass measures 2.2 x 1.1 x 1.4 cm. Solid circumscribed hypoechoic nodule left parotid gland measures 1.2 x 0.7 x 0.9 cm. Impression: Solid bilateral parotid nodules corresponding to the CT PET scan. Ultrasound-guided core needle biopsy of both lesions recommended. ENT referral should also be considered. Dictated by Florentino Vick MD @ 09/15/2024 10:04:02 AM (Electronically Signed)
== END 2024-09-15 07:10 | disposition home or self-care (01) ==
LOC: US 07:09
PROVIDERS: PCP Family Medicine; Visit Provider Family Medicine
DX: K11.8 Other diseases of salivary glands (principal)
CPT/HCPCS: 76536

== ENCOUNTER 2024-09-21 08:32 | Outpatient (CLI) | payer MEDICARE, BC, SELFPAY ==
--- NOTE | 2024-09-21 10:00 | W.ANESCHARGE ---
Anesthesia Charges Start Date/Time Anesthesia Start Date: 09/21/24 Anesthesia Start Time: 09:24 Stop Date/Time Anesthesia Stop Date: 09/21/24 Anesthesia Stop Time: 09:59 Summary Extremes of Age - Over 70 or under 1: [employer]ER
--- NOTE | 2024-09-21 10:52 | W.ANESCHARGE ---
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
== END 2024-09-21 08:33 | disposition home or self-care (01) ==
LOC: OP CLINIC 08:33
PROVIDERS: PCP Family Medicine; Visit Provider Surgery
DX: Z86.0101 Personal history of adenomatous and serrated colon polyps (principal); D12.4 Benign neoplasm of descending colon; D12.5 Benign neoplasm of sigmoid colon; K57.30 Diverticulosis of large intestine without perforation or abscess without bleeding
CPT/HCPCS: 00811; 45385; 88305; 99100; J2704

== ENCOUNTER 2024-10-01 07:51 | Outpatient (CLI) | payer MEDICARE, BC, SELFPAY ==
--- NOTE | 2024-10-01 | CRLHL7_ITS ---
For Patients: As a result of the Century Cures Act, medical imaging exams and procedure reports are released immediately into your electronic medical record. You may view this report before your referring provider. If you have questions, please contact your health care provider. ULTRASOUND-GUIDED LEFT PAROTID GLAND LESION BIOPSY CLINICAL HISTORY: PET avid parotid gland lesion COMPARISON STUDIES: Ultrasound 09/15/2024, CT-PET 08/26/2024 TECHNIQUE: Real-time ultrasound with image documentation was used for targeting the left parotid gland lesion. Core biopsy specimens were obtained using an automated gun with an 18-gauge biopsy needle. CONSENT and TIME OUT: The procedure, risks, and alternatives were explained to the patient and a consent was signed. Wilkinson Protocol was followed including pre-procedure verification that relevant information/documentation was available, reviewed and properly matched to the patient; consent accurate and complete; and equipment and supplies available. Time Out was conducted just prior to starting procedure to verify the four required elements: patient identity, correct side/site marked (if applicable), procedure, relevant images/results properly labeled and displayed (if applicable). PROCEDURE: The patient was positioned supine on the ultrasound table. The left side of the neck was prepped with ChloraPrep. 5 cc of 1 percent lidocaine used for local anesthesia. Core samples were obtained. The specimens were placed in 10% formalin and sent to the pathology department. Pressure was held on the biopsy site until all bleeding subsided. The skin incision was closed with Steri-Strips. LATERALITY: Left parotid gland LESION: Solid hypoechoic nodule within the left parotid gland measuring 1.2 x 0.7 x 0.9 cm. SUSPICION FOR MALIGNANCY: Intermediate NUMBER OF SAMPLES: 5 IMPRESSION: Ultrasound-guided left parotid gland nodule biopsy. Dictated by Florentino Vick MD @ 10/01/2024 12:37:34 PM (Electronically Signed)
--- NOTE | 2024-10-01 08:15 | CRLHL7_ITS ---
For Patients: As a result of the Century Cures Act, medical imaging exams and procedure reports are released immediately into your electronic medical record. You may view this report before your referring provider. If you have questions, please contact your health care provider. ULTRASOUND-GUIDED RIGHT PAROTID GLAND LESION BIOPSY CLINICAL HISTORY: PET avid parotid gland lesion COMPARISON STUDIES: Ultrasound 09/15/2024, CT-PET 08/26/2024 TECHNIQUE: Real-time ultrasound with image documentation was used for targeting the right parotid gland lesion. Core biopsy specimens were obtained using an automated gun with an 18-gauge biopsy needle. CONSENT and TIME OUT: The procedure, risks, and alternatives were explained to the patient and a consent was signed. [place] Protocol was followed including pre-procedure verification that relevant information/documentation was available, reviewed and properly matched to the patient; consent accurate and complete; and equipment and supplies available. Time Out was conducted just prior to starting procedure to verify the four required elements: patient identity, correct side/site marked (if applicable), procedure, relevant images/results properly labeled and displayed (if applicable). PROCEDURE: The patient was positioned supine on the ultrasound table. The right side of the neck was prepped with ChloraPrep. 5 cc of 1 percent lidocaine used for local anesthesia. Core samples were obtained. The specimens were placed in 10% formalin and sent to the pathology department. Pressure was held on the biopsy site until all bleeding subsided. The skin incision was closed with Steri-Strips. LATERALITY: Right parotid gland LESION: Solid hypoechoic nodule within the right parotid gland measuring 2.2 x 1.1 x 1.4 cm. SUSPICION FOR MALIGNANCY: Intermediate NUMBER OF SAMPLES: 5 IMPRESSION: Ultrasound-guided right parotid gland nodule biopsy. Dictated by Florentino Vick MD @ 10/01/2024 12:36:11 PM (Electronically Signed)
== END 2024-10-01 07:52 | disposition home or self-care (01) ==
LOC: US 07:53
PROVIDERS: PCP Family Medicine; Visit Provider Family Medicine
DX: K11.8 Other diseases of salivary glands (principal); D11.0 Benign neoplasm of parotid gland
CPT/HCPCS: 42400; 76942; 88305; A4649

== ENCOUNTER 2025-01-25 15:53 | Outpatient (CLI) | payer MEDICARE, BC, SELFPAY | END 2025-01-25 15:54 | disposition home or self-care (01) | PROVIDERS: PCP Family Medicine; Visit Provider Family Medicine | DX: E78.2 Mixed hyperlipidemia (principal); C67.9 Malignant neoplasm of bladder, unspecified | CPT/HCPCS: 80048; 80061; 84460; 85025 ==

== ENCOUNTER 2025-02-19 09:06 | Emergency (ER) | payer MEDICARE, BC, SELFPAY ==
[2025-02-19 09:23] VITALS: BP 136/75; PULSE 70; RESP 18; TEMP 36.4; O2SAT 96; BMI 30.8
--- NOTE | 2025-02-19 09:40 | ED.GENADULT ---
HPI - General Adult General Chief complaint: Urogenital Problems, Male Stated complaint: blood in urine Time Seen by Provider: 02/19/25 09:09 History of Present Illness HPI narrative: Patient is a 74-year-old gentleman with history of bladder cancer status post treatment who had routine surveillance earlier in the month. Eleven days ago he had biopsy of a lesion in his bladder. Results were equivocal. The patient had minimal bleeding after the procedure but overnight he has had significant hematuria. He has some minor discomfort with urination but no other symptoms. He has passed some clots. He is not on any anticoagulation or anti-platelet agents. He has had no chest pain no shortness a breath orthopnea no PND no nausea no vomiting no treasure abdominal pain. No symptoms of bladder obstruction. Related Data Home Medications ?Medication ?Instructions ?Recorded ?Confirmed aspirin 81 mg tablet,delayed 81 mg PO QDAY 12/09/22 02/19/25 release (Adult Aspirin Regimen) pen needle, diabetic 31 gauge x #1,200 ea 01/27/24 02/19/2502/18 (BD Ultra-Fine Short Pen Needle) Previous Rx's ?Medication ?Instructions ?Recorded pen needle, diabetic 30 gauge x #100 ea 05/01/2302/18 (Pen Needle) atorvastatin 40 mg tablet 40 mg PO QPM #90 tabs 07/16/24 blood-glucose sensor (FreeStyle #6 ea 10/18/24 Rocco 3 Sensor device) flash glucose scanning reader #1 ea 10/18/24 (FreeStyle Rocco 2 [place]) amlodipine 5 mg tablet 5 mg PO QDAY #90 tabs 10/26/24 insulin glargine 100 unit/mL (3 20 unit (0.2 mL) subcut QPM #15 mL 11/16/24 mL) subcutaneous pen (Lantus Solostar U-100 Insulin) escitalopram oxalate 20 mg tablet 20 mg PO QDAY #90 tabs 01/10/25 (Lexapro) losartan 100 mg tablet 100 mg PO QDAY #90 tabs 01/10/25 glimepiride 4 mg tablet 4 mg PO QDAY #90 tabs 01/25/25 tirzepatide 7.5 mg/0.5 mL 7.5 mg (0.5 mL) subcut QWEEK #2 mL 01/25/25 subcutaneous pen injector bupropion HCl 300 mg 24 hr tablet, 300 mg PO QAM #90 tabs 02/15/25 extended release (Wellbutrin XL) metformin 500 mg tablet,extended 2,000 mg (4 x 500 mg) PO QDAY #360 02/15/25 release 24 hr tabs Allergies Allergy/AdvReac Type Severity Reaction Status Date / Time YANELY Inhibitors AdvReac Mild Cough Verified 02/19/25 09:33 Review of Systems Status of ROS: Reports: 10 or more systems reviewed and unremarkable except as noted in History and below [facility] Medical History Type 2 diabetes mellitus, with long-term current use of insulin ?E11.9 - Type 2 diabetes mellitus without complications (ICD-10) ?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 (ICD-10) Health care directive on file ?Z78.9 - Other specified health status (ICD-10) Lumbar radiculopathy ?M54.16 - Radiculopathy, lumbar region (ICD-10) Mixed hyperlipidemia ?E78.2 - Mixed hyperlipidemia (ICD-10) Primary hypertension ?I10 - Essential (primary) hypertension (ICD-10) Bladder cancer ?C67.9 - Malignant neoplasm of bladder, unspecified (ICD-10) Major depression, chronic ?F32.9 - Major depressive disorder, single episode, unspecified (ICD-10) Hepatic steatosis ?K76.0 - Fatty (change of) liver, not elsewhere classified (ICD-10) Bilateral inguinal hernia (01/17/22) ?K40.20 - Bilateral inguinal hernia, without obstruction or gangrene, not specified as recurrent (ICD-10) BPH (benign prostatic hyperplasia) ?N40.0 - Benign prostatic hyperplasia without lower urinary tract symptoms (ICD-10) Plantar fascial fibromatosis ?M72.2 - Plantar fascial fibromatosis (ICD-10) Insomnia ?G47.00 - Insomnia, unspecified (ICD-10) History of colon polyps (12/10/18) ?Z86.010 - Personal history of colonic polyps (ICD-10) Surgical History History of arthroscopy of right knee (10/09/23) ?Z98.890 - Other specified postprocedural states (ICD-10) History of cervical spinal surgery (1999) ?Z98.890 - Other specified postprocedural states (ICD-10) Dupuytren's contracture of left hand (07/12/08) ?M72.0 - Palmar fascial fibromatosis [Dupuytren] (ICD-10) History of right inguinal hernia repair (12/06/14) ?Z98.890 - Other specified postprocedural states (ICD-10) ?Z87.19 - Personal history of other diseases of the digestive system (ICD-10) History of biopsy of bladder (05/13/22) ?Z98.890 - Other specified postprocedural states (ICD-10) History of arthroscopy of right shoulder (03/11/17) ?Z98.890 - Other specified postprocedural states (ICD-10) History of hemorrhoidectomy ?Z98.890 - Other specified postprocedural states (ICD-10) History of appendectomy (2012) ?Z90.49 - Acquired absence of other specified parts of digestive tract (ICD-10) History of blepharoplasty (09/08/13) ?Z98.890 - Other specified postprocedural states (ICD-10) History of local excision of skin lesion (12/04/10) ?Z98.890 - Other specified postprocedural states (ICD-10) Family History Father Lung cancer Sister Lung cancer Breast cancer Diabetes Brother Diabetes Liver transplanted Liver disease Mother Leukemia Social History Narrative: , retired from [email or web address], smoker, social ETOH, two kids What is your current living situation?: I presently have a place to live In the past 12 months, utilities in danger of being shut off: no In past 12 months, lack of transportation kept you from medical appts, meetings, work, or getting things needed for daily living: no In the past 12 mos, have been you worried that your food would run out before you had money to buy more?: never true In the past 12 mos, the food you bought just didn't last and you didn't have money to buy more?: never true Smoking Status: Current some day smoker What tobacco products do you use: cigarettes Do you use any of these nicotine containing products: None Second hand tobacco smoke exposure: No How often do you have a drink containing alcohol: 2-4 times a month How often do you have six or more drinks on one occasion: Never AUDIT-C Alcohol total score: 2 Non-prescribed substance use: denies use Caffeine: Yes How often does anyone, including family, friends and others, physically hurt you: never How often does anyone, including family, friends and others, insult or talk down to you: never How often does anyone, including family, friends and others, threaten you with harm: never How often does anyone, including family, friends and others, scream or curse at you: never service: No Exam Narrative: Exam Narrative: EXAM GENERAL: Patient appears comfortable and well. EYES: No scleral icterus. LYMPH: No supraclavicular or cervical lymphadenopathy. SKIN: Visible skin seen during exam normal or with benign process only. EXT: No dependent lower extremity pedal edema. HEART: Regular rate and rhythm with no murmurs, rubs, or gallops. LUNGS: Clear to auscultation bilaterally with no crackles or wheezes. ABD: Soft, non tender, non distended. PSYCH: Good eye contact, speech is not pressured. Const: Vital Signs, click to edit/add: Vital Signs - 24 hr 02/19/25 09:23 Temperature 97.6 F Pulse Rate [Right Pulse Oximeter] 70 Respiratory Rate 18 Blood Pressure [Ri ght Upper Arm] 136/75 Pulse Oximetry 96 Oxygen Delivery Me thod Room Air Course Course ED Course: Patient seen and examined. UA CBC basic metabolic panel PT INR postvoid residual pending. Vital Signs Vital signs: Initial Vital Signs Temperature 97.6 F 02/19/25 09:23 Temperature Source Temporal Artery Scan 02/19/25 09:23 Pulse Rate 70 02/19/25 09:23 Respiratory Rate 18 02/19/25 09:23 Blood Pressure 136/75 02/19/25 09:23 Blood Pressure Mean 95 02/19/25 09:23 Blood Pressure Position Sitting 02/19/25 09:23 Pulse Oximetry 96 02/19/25 09:23 Oxygen Delivery Method Room Air 02/19/25 09:23 Vital Signs Temperature 97.6 F 02/19/25 09:23 Pulse Rate 70 02/19/25 09:23 Respiratory Rate 18 02/19/25 09:23 Blood Pressure 136/75 02/19/25 09:23 Pulse Oximetry 96 02/19/25 09:23 Oxygen Delivery Method Room Air 02/19/25 09:23 Temperature 97.6 F 02/19/25 09:23 Pulse Rate 70 02/19/25 09:23 Respiratory Rate 18 02/19/25 09:23 Blood Pressure 136/75 02/19/25 09:23 Pulse Oximetry 96 02/19/25 09:23 Oxygen Delivery Method Room Air 02/19/25 09:23 Medical Decision Making MDM Narrative Medical decision making narrative: Patient is a 74-year-old gentleman who comes in today 11 days after bladder biopsy with bleeding in his urine. He is showing no signs of systemic infection. His labs are stable. Urine is consistent with bleeding plus mild infection. Urine is sent for culture. Did review the case with Urology in the do recommend Cipro for 5 days. He does not need a catheter as his postvoid residual is 0. Patient will drink plenty fluids and follow-up with urology as scheduled. Lab Data Labs: Lab Results 02/19/25 02/19/25 Range/Units 09:34 09:39 WBC 6.16 (4.50-11.00) K/uL RBC 4.45 (4.30-5.90) m/uL Hgb 14.5 (13.5-17.5) gm/dL Hct 43.2 (37.0-53.0) % MCV 97 (80-100) fL MCH 33 (26-34) pg MCHC 34 (32-36) gm/dL RDW Coeff of Eliezer 11.8 (11.5-15.5) % Plt Count 279 (140-440) K/uL Neut % (Auto) 48.8 (42.0-72.0) % Lymph % (Auto) 34.4 (20-44) % Roane % (Auto) 13.0 H (0.0-11.0) % Eos % (Auto) 3.1 (0.0-7.0) % Baso % (Auto) 0.5 (0.0-3.0) % Neut # (Auto) 3.01 (1.7-7.0) K/uL Lymph # (Auto) 2.12 (0.90-2.90) K/uL Roane # (Auto) 0.80 (0.00-0.90) K/UL Eos # (Auto) 0.19 (0.00-0.50) K/uL Baso # (Auto) 0.03 (0.00-0.30) K/uL Abs Immat Gran (auto) 0.01 (0.00-0.30) K/uL Imm/Tot Granulo (auto) 0.2 % INR 0.95 (0.91-1.10) Sodium 136 (135-149) mmol/L Potassium 4.4 (3.6-5.1) mmol/L Chloride 100 (96-114) mmol/L Carbon Dioxide 27 (20-32) mmol/L Anion Gap 9 (7-15) mEq/L BUN 22 (7-30) mg/dL Creatinine 1.2 (0.5-1.5) mg/dL Estimated Creat Clear 56.61 Estimated GFR 64 ml/min Glucose 135 H (60-115) mg/dL Calcium 9.4 (8.4-10.6) mg/dL Urine Color Red A (Yellow) Urine Appearance Cloudy A (Clear) Urine pH 6.0 (5.0-8.5) Ur Specific Yeso 1.025 (1.000-1.030) Urine Protein 3+ A (Negative) Urine Glucose (UA) Negative (Negative) Urine Ketones Negative (Negative) Urine Blood 3+ A (Negative) Urine Nitrite Positive A (Negative) Urine Bilirubin 1+ A (Negative) Urine Urobilinogen 1.0 (0.2-1.0) Ur Leukocyte Esterase Negative (Negative) Urine RBC >100 A (0-2) Urine WBC >100 A (0-5) Ur Squamous Epith Cells None (None-Few) Urine Bacteria Many A (None) Discharge Plan Discharge Clinical Impression: Urinary tract infection Patient Disposition: Home, Self-Care Condition: Stable Instructions: Urinary Tract Infection in Men (ED) Additional Instructions: Cipro as directed Drink plenty of fluids Continue current care Follow-up with your doctor as needed. Activity Level: No Restrictions Discharge Diet: Regular Prescriptions: No Action tirzepatide 7.5 mg/0.5 mL pen injector 7.5 mg subcut QWEEK Qty: 2 0RF Rx Instructions: for 4 weeks glimepiride 4 mg tablet 4 mg PO QDAY Qty: 90 1RF aspirin [Adult Aspirin Regimen] 81 mg tablet,delayed release (DR/EC) 81 mg PO QDAY (DME) pen needle, diabetic [Pen Needle] 30 gauge x 5/16 needle See Rx Instructions .ROUTE .MEDSUPPLY Qty: 100 3RF Rx Instructions: Injects daily (DME) pen needle, diabetic [BD Ultra-Fine Short Pen Needle] 31 gauge x 5/16 needle See Rx Instructions .ROUTE DAILY Qty: 1200 Rx Instructions: As directed amlodipine 5 mg tablet 5 mg PO QDAY Qty: 90 1RF atorvastatin 40 mg tablet 40 mg PO QPM Qty: 90 3RF (DME) FreeStyle Rocco 2 [place] Misc See Rx Instructions .Route Qty: 1 0RF Rx Instructions: As directed (DME) FreeStyle Rocco 3 Sensor Device See Rx Instructions .Route Qty: 6 1RF Rx Instructions: change every 2 weeks insulin glargine [Lantus Solostar U-100 Insulin] 100 unit/mL (3 mL) insulin pen 20 unit subcut QPM Qty: 15 2RF escitalopram oxalate [Lexapro] 20 mg tablet 20 mg PO QDAY Qty: 90 0RF losartan 100 mg tablet 100 mg PO QDAY Qty: 90 1RF metformin 500 mg tablet extended release 24 hr 2,000 mg PO QDAY Qty: 360 0RF bupropion HCl [Wellbutrin XL] 300 mg tablet extended release 24 hr 300 mg PO QAM Qty: 90 0RF Follow Up/Referrals: Florentino Benito MD [Primary Care Provider] - Stand Alone Forms: [facility] Info Inst[facility]
[2025-02-19 09:48] LABS: Appearance Urine Cloudy (Clear); Bilirubin Urine 1+ (Negative); Blood Urine 3+ (Negative); Color Urine Red (Yellow); Glucose Urine Negative (Negative); Ketones Urine Negative (Negative); Leukocyte Esterase Urine Negative (Negative); Nitrite Urine Positive (Negative); Protein Urine 3+ (Negative); Specific Gravity Urine 1.025 (1.000-1.030)
[2025-02-19 09:55] LABS: Basophils Absolute Auto 0.03 K/uL (0.00-0.30); Basophils Percent Auto 0.5 % (0.0-3.0); Eosinophils Absolute Auto 0.19 K/uL (0.00-0.50); Eosinophils Percent Auto 3.1 % (0.0-7.0); Hematocrit 43.2 % (37.0-53.0); Hemoglobin* 14.5 gm/dL (13.5-17.5); Immature Granulocytes Abs Auto 0.01 K/uL (0.00-0.30); Immature Granulocytes Pct Auto 0.2 %; Lymphocytes Absolute Auto 2.12 K/uL (0.90-2.90); Lymphocytes Percent Auto 34.4 % (20-44); Mean Corpuscular HGB Conc 34 gm/dL (32-36); Mean Corpuscular Hemoglobin 33 pg (26-34); Mean Corpuscular Volume 97 fL (80-100); Neutrophils Absolute Auto 3.01 K/uL (1.7-7.0); Neutrophils Percent Auto 48.8 % (42.0-72.0); Platelet Count* 279 K/uL (140-440); RDW Coefficient of Variation % 11.8 % (11.5-15.5); Red Blood Count 4.45 m/uL (4.30-5.90); White Blood Count* 6.16 K/uL (4.50-11.00)
[2025-02-19 09:58] LABS: Slide Review Reflex No
[2025-02-19 10:07] LABS: Chloride* 100 mmol/L (96-114); Potassium* 4.4 mmol/L (3.6-5.1); Sodium* 136 mmol/L (135-149)
[2025-02-19 10:08] LABS: Bacteria Urine Many; RBC Urine >100 (0-2); WBC Urine >100 (0-5)
[2025-02-19 10:10] LABS: Blood Urea Nitrogen* 22 mg/dL (7-30); Creatinine* 1.2 mg/dL (0.5-1.5); Est. Creatinine Clearance* 56.61; Estimated Glomerular Filt Rate 64 ml/min; INR 0.95 (0.91-1.10); Prothrombin Time 13.4 Seconds
[2025-02-19 10:11] LABS: Anion Gap 9 mEq/L (7-15); Calcium* 9.4 mg/dL (8.4-10.6); Carbon Dioxide* 27 mmol/L (20-32); Glucose* 135 mg/dL (60-115)
--- OUTSIDE RECORDS SUMMARY | 2025-02-20 17:21 | XMS_ITS | Clinical Summary ---
Author Organization [facility] Address [address] [place] [address]. 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 Gender Identity Not on file Sexual Orientation [...] SIG 1950 LIPID 1950 sDNA (Cologuard) 1951 LUNG CANCER SCREENING 2001 FALL RISK ASSESSMENT 2016 MEDICARE ANNUAL WELLNESS VISIT 2016 COVID-19 Vaccine ( season) 2024 02/23/2022, 07/03/2021, 12/25/2020, Additional history exists PHQ-2 (once per calendar year) 2024 DIABETES SCREENING 05/13/2025 05/13/2022 INFLUENZA VACCINE (Season Ended) 2025 08/06/2021, 07/22/2020, 07/19/2019, Additional history exists DTAP/TDAP/TD IMMUNIZATION (2 - Td or Tdap) 11/06/2025 11/06/2015, 08/13/2005 RSV VACCINE (1 - 1-dose 75+ series) 2026 COLONOSCOPY 12/10/2028 12/10/2018 COLORECTAL CANCER SCREENING 12/10/2028 Pneumococcal Vaccine: 50+ Years Completed 12/07/2018, 06/23/2017 HEPATITIS C SCREENING Completed 05/25/2020 ZOSTER IMMUNIZATION Completed 09/20/2020, 07/22/2020, 05/15/2012 HPV IMMUNIZATION Aged Out No longer e ligible based on patient's age to complete this topic MENINGITIS IMMUNIZATION Aged Out No l onger eligible based on patient's age to complete this topic Procedures Procedure Name Priority Date/Time Associated Diagnosis Comments SURGICAL PATHOLOGY EXAM Routine 02/08/2025 1:00 PM CDT Malignant neoplasm of bladder, unspecified (H) GLUCOSE STAT 05/13/2022 6:02 AM CDT from Last 3 Months or Most Recently Relevant to Health Maintenance Results * Surgical Pathology Exam (02/08/2025 1:00 PM CDT) Case Report Surgical Pathology Report Case: [id number] Authorizing Provider: Demetrius Rothman MD Collected: 02/08/2025 01:00 PM Ordering Location: [facility] Received: 02/09/2025 12:16 PM [facility] Pathologist: Ronit Hicks MD Specimen: Urinary Bladder 02/11/2025 1:35 PM CDT LABORATORY Final Diagnosis Bladder, biopsy- - Atypical urothelium.(please see comment) 02/11/2025 1:35 PM CDT LABORATORY at 1335 CDT Comment The specimen consists of scant urothelial mucosa with focal atypical features suspicious for carcinoma in situ. The current specimen is compared to previous biopsy (SS2 -1 907) and although the morphologic findings are similar, the current biopsy is qualitatively and quantitatively considered insufficient for a definitive diagnosis of malignancy. Slides have been seen in intradepartmental consultation. Clinical correlation and follow-up is recommended. 02/11/2025 1:35 PM CDT LABORATORY Clinical Information Malignant neoplasm of bladder, unspecified Per outside procedure note-1 cm erythematous patch biopsied 02/11/2025 1:35 PM CDT LABORATORY Gross Description A(). Urinary Bladder, : The specimen is received in formalin, labeled with the patient's name, medical record number and other identifying information designated urinary bladder biopsy. It consists of 2 fragments of white-nance soft tissue measuring 0.3-0.4 cm in greatest dimension. The fragments are submitted entirely in formalin wrapped in lens paper in 1 cassette. SASHA Boyer(ASCP)CM 02/09/2025 12:34 PM 02/11/2025 1:35 PM CDT LABORATORY Microscopic Description A formal microscopic exam is performed. Multiple deeper levels have been performed 02/11/2025 1:35 PM CDT LABORATORY Special Stains The following stains were performed on this case as listed below, on hostess party sales representative block A1 including p53, CD44 & cytokeratin 20 with appropriate controls (staining adequately) and show that lesional cells show diffuse positivity for cytokeratin 20, predominantly basal staining for CD44 and patchy p53 staining. 02/11/2025 1:35 PM CDT LABORATORY Performing Labs The technical component of this testing was completed at [facility]. Stain controls for all stains resulted within this report have been reviewed and show appropriate reactivity. 02/11/2025 1:35 PM CDT LABORATORY Case Images 02/11/2025 1:35 PM CDT LABORATORY Tissue URINARY BLADDER STRUCTURE / Unknown 02/08/2025 1:00 PM CDT 02/09/2025 12:16 PM CDT us Demetrius Rothman MD LAB - ANGEL AP Final Res ult LABORATORY [facility] [address] [facility] (1st floor, no room number) [place] [address], [facility]ATORY [facility] [address], [address] [place] [address], [place] [phone] * (ABNORMAL) Glucose (05/13/2022 6:02 AM CDT) Glucose 192(H) 70 - 99 mg/dL 05/13/2022 7:05 AM CDT LABORATORY Patient Fasting > 8hrs? Yes 05/13/2022 7:05 AM CDT LABORATORY Blood STRUCTURE OF RIGHT UPPER LIMB / Unknown Venipuncture / Unknown 05/13/2022 6:02 AM CDT 05/13/2022 6:25 AM CDT Mamadou Abarca MD LAB - BLOOD ORDERABLES Final Result LABORATORY [facility] [address] 1[address], [address] [place] [address], [facility] [phone] from Last 3 Months or Most Recently Relevant to Health Maintenance Insurance MEDICARE [facility] Address: [address] [address] [place] [address] MEDICARE [facility] Address: [address] [address] [place] [address] MEDICARE Care Teams Insurance Healthcare Consultant Relationship Specialty Start Date End Date Lamberto Padilla [address] [place] [address] PCP - General Family Medicine 04/23/22
--- OUTSIDE RECORDS SUMMARY | 2025-02-20 17:21 | XMS_ITS | Clinical Summary ---
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 Role Phone Unavailable Primary Care Provider [...] 3 12/07/19 22 Active blood sugar diagnostic (BrightTALKTouch Ultra Test) stripIndications:C ontrolled type 2 diabetes [...] Type 2 Diabetes A1C <7.5 02/08/200705/2011 Immunizations Immunization Administration Dates Next Due COVID-19 vaccine ([employer] NTech 30mcg/0.3mL) PF, MDV 12/25/2020,12/01/2020 Hepatitis A [...] Relation Name Comments Diabetes Brother 1 Ja [facility] Brother 2 Casey Liver disease Brother 2 Casey liver transpla nt [facility] Brother 3 Cameron Cancer Father Throat/Lung [...] on file Legal Sex Male 5:46 AM SERVICING REP Gender Identity Not on file Sexual Orientation Not on file 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[employer] Not 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 Not on file Not [...] Done Comments Depression screening for age 12+ 1963 BMI (ht and wt on same day) for age 18+ 05/06/2023 05/06/2022, 03/13/2022, 01/03/2022, Additional history exists Colonoscopy through age 75 12/11/202312/10, 12/09/2013, 12/09/2013, Additional history exists COVID-19 vaccine series ( season) 2024 02/23/2022, 07/03/2021, 12/25/2020, Additional history exists Influenza Vaccine (Season Ended) 2025 08/06/2021, 07/22/2020, 07/19/2019, Additional history exists Tetanus booster 11/06/2025 11/06/2015, 08/13/2005 RSV vaccine for adults or (1 - 1-dose 75+ series) 2026 Lipids for age 45-75 12/06/2026 12/06/2021, 01/09/2021, 05/25/2020, Additional history exists Tdap Completed 11/06/2015 Pneumococcal series for age 50+ Completed 9, 06/23/2017 Hepatitis C screening for ag e 18-79 Completed 05/25/2020 Zoster (shingles) series for age 50+ Completed 09/20/2020, 07/22/2020, 05/15/2012 Medical Devices Implanted Type Area Cloth Shearer Device Identifier Shelf Expiration Date Model / Serial / Lot Mesh Surgical 3in X 6in - [id number] Implanted:Qty: 1 on 12/06/2014 by Jaxon Adams MD at [facility] [employer] 08/05/2019 [id number] / / [id number] Procedures Procedure Name Priority Date/Time Associated Diagnosis Comments LIPID PANEL W REFLEX MEASURED LDL Routine 12/06/2021 1:51 PM SERVICING REP Hyperlipidemia, unspecified hyperlipidemia type ANTI HCV Routine 05/25/2020 8:17 AM CDT Routine general medical examination at a health care facility COLONOSCOPY 12/10/2018 10:48 AM SERVICING REP from Last 3 Months or Most Recently Relevant to Health Maintenance Results * LIPID PANEL W REFLEX MEASURED LDL (12/06/2021 1:51 PM SERVICING REP) [facility] CHOLESTEROL,TOTAL 142 100 - 199 mg/dL 12/06/2021 2:35 PM SERVICING REP [facility] TRIGLYCERIDES 86 <150 mg/dL 12/06/2021 2:35 PM [facility] HDL CHOLESTEROL 68 >40 mg/dL 2:35 PM [facility] NON-HDL CHOLESTEROL 74 <145 mg/dl 12/06/2021 2:35 PM [facility] CHOL/HDL RATIO 2.09 <4.50 12/06/2021 2:35 PM [facility] LDL CHOLESTEROL 57 <=130 mg/dL 12/06/2021 2:35 PM [facility] VLDL CHOLESTEROL 17 <=30 mg/dL 12/06/2021 2:35 PM [facility] PROVIDER ORDERED STATUS RANDOM 12/06/2021 2:35 PM [facility] Blood BLOOD SPECIMEN / Unknown Venipuncture / Unknown 12/06/2021 1:51 PM SERVICING REP 12/06/2021 1:54 PM SERVICING REP Lamberto Padilla MD CHEMISTRY Final R on license of [facility] Performing Organization Address City/[facility]/ZIP Co de Phone Number [facility] [address] [place] [address] * ANTI HCV (05/25/2020 8:17 AM CDT) HEPATITIS C ANTIBODY Non-React jayesh Non-React jayesh 05/25/2020 4:33 PM CDT [facility] Comment:Antibodies to HCV no t detected; does not exclude the possibility of exposure to HCV. Blood BLOOD SPECIMEN / Unknown Venipuncture / Unknown 05/25/2020 8:17 AM CDT 05/25/2020 8:20 AM CDT Lamberto Padilla MD SEND OUTS Final R esMagiq [facility] [address] [place] [address], [place] * COLONOSCOPY (12/10/2018 10:48 AM SERVICING REP) 12/10/2018 10:4 8 AM SERVICING REP Narrative Transcriptions Jaxon Adams MD - 12/10/2018 11:52 AM CST Patient Name: Florentino Godfrey Procedure Date: 12/10/2018 Gender: Male Date of : 1950 Admit Type: Ambulatory Procedure: Colonoscopy Proceduralist: Jaxon [facility] Indications/Pre-Op Diagnosis: High risk colon cancer surveillance:Personal [...] Most Recently Relevant to Health Maintenance Insurance [facility] MEDICARE PART A HB ONLY [facility] Advance Directives Documents on File Type Date Recorded 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
--- OUTSIDE RECORDS SUMMARY | 2025-02-20 17:21 | XMS_ITS | Clinical Summary ---
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 Medications Administered No information available. Allergies, Adverse Reactions, Alerts No information available. Results Date Name Value Unit Range Flag Description Internal Other: Authorizatio n - OBS [email or web address] Yes Authoriza tion: Release of Information - Authorize [facility] - Payment and Healthcare Operations ROIAUTHOTHER Yes Authoriz ation: Release of Information - Authorize Others/Insurance - Payment and Healthcare Operations HIECONSENT Yes Consent To Release information to the Health Information Exchange (HIE) [email or web address] Yes Authorizat ion: Authorization for [facility] to leave messages, voicemail, send text messages, send emails [email or web address] Yes Authoriz ation: Release/Retrieval of Information to/from Healthcare Facilities, Pharmacy Benefit Payers and Providers [email or web address] Yes Authoriz ation: Notice of privacy practices [email or web address] Yes Authoriza tion: Assignment of Benefits and Payment Agreement Plan of Care No information available. Procedures Code Procedure Name Date Entry Date [id number] Nerve Conduction 5-6 studies CPT-57444 EMG with NCS (5+ muscles) - 1 limb 01/02 CPT-26414 Motor NCS x 2 CPT-66113 Sensory NCS x 2 CPT-26055 EMG 1 limb Vital Signs No information available. Immunizations No information available. Advance Directives No information available.
--- OUTSIDE RECORDS SUMMARY | 2025-02-20 17:21 | XMS_ITS | Data Portability ---
Author Organization [place] [facility], [facility] Address [address] [place] [address] Assessment Encounter Date Assessment Date Assessment LastModified by Organization Details LastModified Time 09/18/2023 09/18/2023 72 yoM with history Tis [...] Tis UCC s/p induction BCG completed 08/06/2022 [email or web address] Not available 07/12/2024 16:45:05 01/20/2025 01/20/2025 74 yoM with history Tis UCC s/p induction BCG completed 08/06/2022 [email or web address] Not available 01/14/2025 15:57:31 Plan of Treatment Reminders Order Date Submit Date Provider Last Modified By Organization Details Last Modified Time Details Appointments HOSPITA L 60 2024 10:30A Teofilo Rothman MD Not available Not available Not available ESTABLI SHED 10 2024 02:40P Teofilo Rothman MD Not available Not available Not available Lab urinaly sis, dipstic k 2024 025 [email or web address] [facility], [address], [place], [address], 01/20/2025 11:13:59 urinaly sis, dipstic k 2023 024 [email or web address] [facility], [address], [place], [address], 07/22/2024 11:58:15 urinaly sis, dipstic k 2023 024 [email or web address] [facility], [address], [place], [address], 04/14/2024 15:27:57 urinaly sis, dipstic k 2023 024 [email or web address] [facility], [address], [place], [address], 12/26/2023 15:08:44 urinaly sis, dipstic k 2022 023 [email or web address] [facility], [address], [place], [address], 09/18/2023 10:54:47 cytolog y, urine 2022 023 [email or web address] [facility], [address], [place], [address], 09/22/2023 16:04:28 Referral None recorde d. Procedures None recorde d. Surgeries cystosc opy with bladder biopsy (SURG) 2024 025 [email or web address] Not available 01/21/2025 12:02:14 Imaging None recorde d. Medication Orders None recorde d. Patient TargetsNo targets recorded. Patient InstructionsNo instructions recorded. Reason for Referral None Reported. Results Created Date Observation Date Name Description Value Unit Range Abnormal Flag Note LastModifiedBy Organization Detail LastModifiedTime 09/18/20 23 09/18/2023 urina lysis , dipst ick pH-Status 6.0 Not Available [facility] [address], [place], [address], 09/18/2023 10:54:12 09/18/20 23 09/18/2023 urina lysis , dipst ick Nitrates-Sta tus negati ve Not Available [facility] [address], [place], [address], 09/18/2023 10:54:12 09/18/20 23 09/18/2023 urina lysis , dipst ick Blood-Status Negati ve Not Available [facility] [address], [place], [address], 09/18/2023 10:54:12 09/18/20 23 09/18/2023 urina lysis , dipst ick Leuko-Status Negati ve Not Available [facility] [address], [place], [address], 09/18/2023 10:54:12 09/18/20 23 09/18/2023 urina lysis , dipst ick Specimen Type Voided Not Available [facility] [address], [place], [address], 09/18/2023 10:54:12 12/26/19 24 12/26/2023 urina lysis , dipst ick pH-Status 5.5 Not Available [facility] [address], [place], [address], 12/26/2023 15:05:16 12/26/19 24 12/26/2023 urina lysis , dipst ick Nitrates-Sta tus negati ve Not Available [facility] [address], [place], [address], 12/26/2023 15:05:16 12/26/19 24 12/26/2023 urina lysis , dipst ick Blood-Status Negati ve Not Available [facility] [address], [place], [address], 12/26/2023 15:05:16 12/26/19 24 12/26/2023 urina lysis , dipst ick Leuko-Status Negati ve Not Available [facility] [address], [place], [address], 12/26/2023 15:05:16 12/26/19 24 12/26/2023 urina lysis , dipst ick Specimen Type Voided Not Available [facility] [address], [place], [address], 12/26/2023 15:05:16 04/14/20 24 04/14/2024 urina lysis , dipst ick BLOOD Negati ve Not Available [facility] [address], [place], [address], 04/14/2024 09:08:52 04/14/20 24 04/14/2024 urina lysis , dipst ick NITRITES Negati ve Not Available [facility] [address], [place], [address], 04/14/2024 09:08:52 04/14/20 24 04/14/2024 urina lysis , dipst ick GLUCOSE >2000 mg/dL Not Available [facility] [address], [place], [address], 04/14/2024 09:08:52 04/14/20 24 04/14/2024 urina lysis , dipst ick p.H. 5.0 Not Available [facility] [address], [place], [address], 04/14/2024 09:08:52 04/14/20 24 04/14/2024 urina lysis , dipst ick LEUKOCYTES Negati ve Not Available [facility] [address], [place], [address], 04/14/2024 09:08:52 07/22/2007/22/2024 urina lysis , dipst ick BLOOD Negati ve Not Available [facility] [address], [place], [address], 07/22/2024 11:44:08 07/22/2007/22/2024 urina lysis , dipst ick NITRITES Negati ve Not Available [facility] [address], [place], [address], 07/22/2024 11:44:08 07/22/20 24 07/22/2024 urina lysis , dipst ick GLUCOSE 500 mg/dL Not Available [facility] [address], [place], [address], 07/22/2024 11:44:08 07/22/2007/22/2024 urina lysis , dipst ick p.H. 5.0 Not Available [facility] [address], [place], [address], 07/22/2024 11:44:08 07/22/20 24 07/22/2024 urina lysis , dipst ick LEUKOCYTES Negati ve Not Available [facility] [address], [place], [address], 07/22/2024 11:44:08 01/21/20 25 01/20/2025 urina lysis , dipst ick BLOOD Negati ve Not Available [facility] [address], [place], [address], 01/20/2025 11:07:28 01/21/20 25 01/20/2025 urina lysis , dipst ick GLUCOSE Negati ve Not Available [facility] [address], [place], [address], 01/20/2025 11:07:28 01/21/20 25 01/20/2025 urina lysis , dipst ick p.H. 5.0 Not Available [facility] [address], [place], [address], 01/20/2025 11:07:28 01/21/20 25 01/20/2025 urina lysis , dipst ick LEUKOCYTES Negati ve Not Available [facility] [address], [place], [address], 01/20/2025 11:07:28 Result Notes None recorded. Problems Name Problem SNOMED Code Status Onset Date Resolution Date Notes Provider Name and Address Organization Details Recorded Time Malignant neoplasm of urinary bladder 358177985 Active 022 Elizabeth yu [facility] 15:13:09 Problem Notes None recorded. Procedures Surgical History Date Name Laterality Status Provider Name and Address Organization Details Recorded Time 02/09/20 25 CYSTOSCOPY WITH BLADDER BIOPSY (SURG) completed Cris Ocampo [facility] 02/17/2025 16:41:45 01/21/20 25 Cystoscopy- male completed Demetrius Rothman MD [address] [place] [address],[address], [address], [facility] 01/20/2025 13:46:54 01/21/20 25 COMPLEX VISIT completed Demetrius Rothman MD [address] [place] [address],[address], [address], [facility] 01/20/2025 09:37:56 01/21/20 25 Sulfa post Cysto completed Matilda Guevara [facility] 01/20/2025 11:16:00 07/22/20 24 Cystoscopy- male completed Demetrius Rothman MD [address] [place] [address],[address], [address], [facility] 07/22/2024 13:18:14 07/22/20 24 COMPLEX VISIT completed Demetrius Rothman MD [address], [place], [address], [facility] 07/22/2024 08:18:58 07/22/20 24 Sulfa post Cysto completed Matilda Guevara [facility] 07/22/2024 11:44:41 04/14/20 24 Cystoscopy- male completed Demetrius Rothman MD [address] [place] [address],[address], [place], [address], [facility] 04/14/2024 16:16:01 04/14/20 24 COMPLEX VISIT completed Demetrius Rothman MD [address] [place] [address],[address], [place], [address], [facility] 04/14/2024 09:42:30 04/14/20 24 Sulfa post Cysto completed Matilda Gunn [facility] 04/14/2024 15:27:52 12/26/19 24 Cystoscopy- male completed Demetrius Rothman MD [address] [place] [address],[address], [place], [address], [facility] 12/26/2023 17:00:12 11/06/19 24 Colonoscopy completed Matilda Gunn [facility] 04/14/2024 15:27:10 09/18/20 23 Cystoscopy- male completed Demetrius Rothman MD [address] [place] [address],[address], [place], [address], [facility] 09/18/2023 14:03:55 09/18/20 23 Sulfa post Cysto completed Matilda Gunn [facility] 09/18/2023 10:55:00 06/13/20 23 Cystoscopy- male completed Demetrius Rothman MD [address] [place] [address],[address], [place], [address], [facility] 06/13/2023 15:11:40 03/13/20 23 Cystoscopy- male completed Demetrius Rothman MD [address] [place] [address],[address], [place], [address], [facility] 03/13/2023 12:06:00 03/13/20 23 Sulfa post Cysto completed Demetrius Rothman MD [address] [place] [address],[address], [place], [address], [facility] 03/13/2023 12:06:28 12/13/19 23 Cystoscopy- male completed Demetrius Rothman MD [address] [place] [address],[address], [place], [address], [facility] 12/12/2022 13:47:37 09/11/20 22 Cystoscopy- male completed Demetrius Rothman MD [address] [place] [address],[address], [place], [address], [facility] 09/11/2022 12:19:20 09/11/20 22 Cipro post Cysto completed Matilda Gunn [facility] 09/11/2022 12:17:16 08/06/20 22 BCG Full Dose Tx 50mg completed Amy Dockery [facility] 08/06/2022 14:24:24 07/30/20 22 BCG Full Dose Tx 50mg completed Amy Dockery [facility] 07/30/2022 15:04:41 07/23/20 22 BCG Full Dose Tx 50mg completed Cecily Rosales [facility] 07/23/2022 15:09:26 07/16/20 22 BCG Full Dose Tx 50mg completed Cecily Rosales [facility] 07/16/2022 15:50:27 07/09/20 22 BCG Full Dose Tx 50mg completed Cecily Rosales [facility] 07/09/2022 15:08:36 07/02/20 22 BCG Full Dose Tx 50mg completed Elizabeth Clark [facility] 07/02/2022 15:15:42 05/13/20 22 TRANSURETHRAL RESECTION OF BLADDER TUMOR (SURG) completed Demetrius Rothman MD [address] [place] [address],[address], [address], [facility] 05/29/2022 12:36:20 Imaging Results None recorded. Procedure [...] Not Available Not Available No t Available amlodipine 5 mg tablet TAKE 1 TABLET BY MOUTH [...] completed Not Available Not Available Not Available [place] BCG 50 mg intravesica l suspension Instill [...] Available Not Available No t Available prednisone 50 mg tablet TAKE 1 TABLET BY MOUTH EVERY DAY active Not Available Not Available No t Available timolol maleate 0.5 % eye drops INSTILL 1 DROP INTO BOTH EYES TWICE DAILY active Not Available Not Available No t Available celecoxib 100 mg capsule 12/12 completed Not Available Not Available Not Available cefdinir 300 mg capsule TAKE 1 CAPSULE BY MOUTH TWICE DAILY FOR 10 DAYS 01/20 completed Not Available Not Available Not Available [...] Not Available Not Available Not Available varenicline tartrate 1 mg tablet TAKE 1 TABLET BY MOUTH TWICE DAILY WITH MEALS 12/12 completed Not Available Not Available Not Available varenicline tartrate 0.5 mg (11)-1 mg (42) tablets in [...] 20 UNITS UNDER THE SKIN EVERY EVENING active Not Available Not Available No t Available GaviLyte-G 236 gram-22.74 gram-6.74 gram-5.86 gram oral solution 4PM DAY BEFORE PROCEDURE DRINK 8OZ EVERY 15 MINUTES UNTIL 1/2 GONE. 6 HOURS PRIOR TO PROCEDURE DRINK 8OZ EVERY 15 MINUTES UNTIL GONE active Not Available Not Available No t Available FreeStyle Rocco 2 Sensor kit CHANGE SENSOR EVERY 2 WEEKS active Not Available Not Available No t Available FreeStyle Rocco 2 [place] active Not Available Not Available Not Available insulin glargine-yf gn (U-100) 100 unit/mL (3 mL) subcutaneou s pen ADMINISTE R 20 UNITS UNDER THE SKIN EVERY EVENING 12/25 completed Not Available Not Available Not Available Mounjaro 7.5 mg/0.5 mL subcutaneou s pen injector ADMINISTE R 7.5 MG UNDER THE SKIN EVERY WEEK FOR 4 WEEKS active Not Available Not Available No t Available Mounjaro 5 mg/0.5 mL subcutaneou s pen injector ADMINISTE R 5 MG UNDER THE SKIN EVERY WEEK FOR 4 WEEKS active Not Available Not Available No t Available Mounjaro 2.5 mg/0.5 mL subcutaneou s pen injector ADMINISTE R 2.5 MG UNDER THE SKIN EVERY WEEK FOR 4 WEEKS active Not Available Not Available No t Available Vitals Date Recorded Body height Body mass index (BMI) Body weight Provider Name and Address Organization Details Last Updated DateTime 09/18/2023 177.8 cm 29.4 kg/m2 80054.44 g Matilda Gunn [facility] 09/18/2023 10:48:16 Date Recorded Body height Body mass index (BMI) Body weight Provider Name and Address Organization Details Last Updated DateTime 12/26/2023 177.8 cm 30.1 kg/m2 21760.4 g Matilda Gunn [facility] 12/26/2023 15:07:10 Date Recorded Body height Body mass index (BMI) Body weight Provider Name and Address Organization Details Last Updated DateTime 04/14/2024 177.8 cm 30.1 kg/m2 01992.4 g Matilda Gunn [facility] 04/14/2024 15:26:18 Date Recorded Body height Body mass index (BMI) Body weight Provider Name and Address Organization Details Last Updated DateTime 07/22/2024 177.8 cm 30.1 kg/m2 33920.4 g Spenser Zaldivar [facility] 07/22/2024 11:39:41 Date Recorded Body height Body mass index (BMI) Body weight Provider Name and Address Organization Details Last Updated DateTime 01/20/2025 177.8 cm 30.1 kg/m2 35953.4 g Matilda Guevara [facility] 01/20/2025 11:11:02 Social History Question Answer Notes LastModified by Organizat ion Details LastModified Time Tobacco Smoking Status Current Every Day Smoker Matilda Gunn null, [facility] 05/29/2022 11:05:22 What Was The Date Of Your Most Recent Tobacco Screening? 01/20/2025 [email or web address] Information not available 01/20/2025 Sex: Male Functional Status Question Answer Note LastModified by Organizat ion Details LastModified Time What is your level of alcohol consumption? Occasional [email or web address] Information not available 05/29/2022 Mental Status None recorded. Family History Nothing Reported. Medical History Condition Response Diabetes Y High Blood Pressure Y Cancer Y High Cholesterol Y Immunizations Vaccine Type Date Status Note Provider Nam e and Address Organization Details Recorded Time COVID-19, mRNA, LNP-S, bivalent, PF, 30 mcg/0.3 mL dose 2 completed Not Available [facility] 01/20/2025 10:52:20 Influenza, high-dose, quadrivalent, PF 3 completed Not Available [facility] 01/20/2025 10:52:20 COVID-19, mRNA, LNP-S, PF, 50 mcg/0.5 mL 3 completed Not Available [facility] 01/20/2025 10:52:20 Influenza, high-dose, trivalent, PF 4 completed Not Available [facility] 01/20/2025 10:52:20 COVID-19, mRNA, LNP-S, PF, 50 mcg/0.5 mL 4 completed Not Available [facility] 01/20/2025 10:52:20 COVID-19, mRNA, LNP-S, PF, 30 mcg/0.3 mL dose, coleen-sucrose 2 completed Matilda Stromquist null, [facility] 09/11/2022 11:52:26 COVID-19, mRNA, LNP-S, PF, 30 mcg/0.3 mL dose 1 completed Matilda Stromquist null, [facility] 09/11/2022 11:52:26 COVID-19, mRNA, LNP-S, PF, 30 mcg/0.3 mL dose 1 completed Matilda Stromquist null, [facility] 09/11/2022 11:52:26 Pneumococcal conjugate PCV 13 7 completed Matilda Stromquist null, [facility] 09/11/2022 11:52:26 pneumococcal polysaccharide PPV23 9 completed Matilda Stromquist null, [facility] 09/11/2022 11:52:26 COVID-19, mRNA, LNP-S, PF, 30 mcg/0.3 mL dose 1 completed Matilda Stromquist null, [facility] 09/11/2022 11:52:26 Influenza, adjuvanted, trivalent, PF 8 completed Юлия Osterbauer null, [facility] 06/13/2023 14:41:38 Influenza, adjuvanted, trivalent, PF 7 completed Юлия Osterbauer null, [facility] 06/13/2023 14:41:38 Influenza, adjuvanted, trivalent, PF 9 completed Юлия Osterbauer null, [facility] 06/13/2023 14:41:38 zoster recombinant 0 completed Юлия Osterbauer null, [facility] 06/13/2023 14:41:38 zoster recombinant 0 completed Юлия Osterbauer null, [facility] 06/13/2023 14:41:38 Influenza, adjuvanted, quadrivalent, PF 2 completed Юлия Osterbauer null, [facility] 06/13/2023 14:41:38 Influenza, adjuvanted, quadrivalent, PF 0 completed Юлия Osterbauer null, [facility] 06/13/2023 14:41:38 Influenza, adjuvanted, quadrivalent, PF 1 completed Юлия Osterbauer null, [facility] 06/13/2023 14:41:38 Tdap 6 completed Юлия Osterbauer null, [facility] 06/13/2023 14:41:38 zoster live 2 completed Юлия Osterbauer null, [facility] 06/13/2023 14:41:38 Influenza, split virus, trivalent, preservative 1 completed Юлия Osterbauer null, [facility] 06/13/2023 14:41:38 Influenza, split virus, trivalent, preservative 9 completed Юлия Osterbauer null, [facility] 06/13/2023 14:41:38 Influenza, split virus, trivalent, preservative 3 completed Юлия Osterbauer null, [facility] 06/13/2023 14:41:38 Hep A, adult 9 completed Юлия yu, [facility] 06/13/2023 14:41:38 Hep A, adult 0 completed Юлия yu, [facility] 06/13/2023 14:41:38 typhoid, ViCPs 9 completed Юлия yu, [facility] 06/13/2023 14:41:38 Influenza, split virus, quadrivalent, PF 7 completed Юлия Hutson null, [facility] 06/13/2023 14:41:38 Influenza, split virus, quadrivalent, PF 4 completed Юлия yu, [facility] 06/13/2023 14:41:38 Past Encounters Encounter ID Performer Location Encounter Start Date Encounter Closed Date Diagnosis/Indication Diagnosis SNOMED-CT Code Diagnosis ICD10 Code Diagnosis Note [id number] [facility] [address] [place] [address] 05/29/2022 11:02:29 05/31/2022 10:48:36 Malignant neoplasm of urinary bladder 381745315 C67.9 - We discussed his pathology and recommende d course of action- We discussed the role of intravesic al therapy with BCG, will start induction course [id number] MD EVY TesfayeYareli [address] [place] [address] 07/02/2022 14:22:15 07/04/2022 15:51:32 Malignant neoplasm of urinary bladder 749935370 C67.9 - We discussed his pathology and recommende d course of action- We discussed the role of intravesic al therapy with BCG, will start induction course [id number] MD EVY TesfayeYareli [address] [place] [address] 07/09/2022 14:27:39 07/10/2022 13:04:58 Malignant neoplasm of urinary bladder 173708851 C67.9 - We discussed his pathology and recommende d course of action- We discussed the role of intravesic al therapy with BCG, will start induction course [id number] [facility] [address] [place] [address] 07/16/2022 14:20:19 07/19/2022 08:06:11 Malignant neoplasm of urinary bladder 339962135 C67.9 - We discussed his pathology and recommende d course of action- We discussed the role of intravesic al therapy with BCG, will start induction course [id number] MD EVY TesfayeYareli [address] [place] [address] 07/23/2022 14:33:08 07/29/2022 10:13:11 Malignant neoplasm of urinary bladder 246873877 C67.9 - We discussed his pathology and recommende d course of action- We discussed the role of intravesic al therapy with BCG, will start induction course [id number] [facility] [address] [place] [address] 07/30/2022 14:29:10 08/01/2022 14:22:43 Malignant neoplasm of urinary bladder 662166547 C67.9 [id number] [facility] [address] [place] [address] 08/06/2022 14:31:28 08/07/2022 13:07:40 Malignant neoplasm of urinary bladder 881438630 C67.9 [id number] [facility] [address] [place] [address] 09/11/2022 11:49:55 09/13/2022 10:41:02 Malignant neoplasm of urinary bladder 334176804 C67.9 - S/p induction BCG- Cystoscopy today without evidence of recurrence - Follow up ni 3 months for next surveillan ce cystoscopy [id number] MD EVY TesfayeYareli [address] [place] [address] 12/12/2022 11:31:27 12/16/2022 09:24:25 Malignant neoplasm of urinary bladder 271405684 C67.9 - S/p induction BCG- Cystoscopy today without evidence of recurrence - Follow up in 3 months for next surveillan ce cystoscopy [id number] Demetrius Lorna, MD [address] [place] [address] 03/13/2023 11:38:40 03/18/2023 08:49:23 Malignant neoplasm of urinary bladder 394552250 C67.9 - S/p induction BCG (07/02/22 - 08/06/22)- Cystoscopy today without evidence of recurrence - Follow up in 3 months for next surveillan ce cystoscopy [id number] Demetrius Rothman MD [address] [place] [address] 06/13/2023 14:18:31 06/18/2023 16:06:09 Malignant neoplasm of urinary bladder 626965304 C67.9 - S/p induction BCG (07/02/22 - 08/06/22)- Cystoscopy today without evidence of recurrence - Follow up in 3 months for next surveillan ce cystoscopy [id number] Demetrius Rothman MD [address] [place] [address] 09/18/2023 10:41:50 09/25/2023 13:28:02 Malignant neoplasm of urinary bladder 584270736 C67.9 - S/p induction BCG (07/02/22 - 08/06/22)- Cystoscopy today without evidence of recurrence - Follow up in 3 months for next surveillan ce cystoscopy [id number] Demetrius Rothman MD [address] [place] [address] 12/26/2023 14:55:02 12/29/2023 09:55:33 Malignant neoplasm of urinary bladder 580000606 C67.9 - S/p induction BCG (07/02/22 - 08/06/22)- Cystoscopy today without evidence of recurrence - Follow up in 3 months for next surveillan ce cystoscopy [id number] Demetrius Rothman MD [address] [place] [address] 04/14/2024 14:56:50 04/21/2024 13:42:02 Malignant neoplasm of urinary bladder 556276963 C67.9 - S/p induction BCG (07/02/22 - 08/06/22)- Cystoscopy today without evidence of recurrence - Follow up in 3 months for next surveillan ce cystoscopy [id number] Demetrius Rothman MD [address] [address] [place] [address] 07/22/2024 11:30:56 07/23/2024 14:50:24 Malignant neoplasm of urinary bladder 024101183 C67.9 - S/p induction BCG (07/02/22 - 08/06/22)- Cystoscopy today without evidence of recurrence -Area of patchy erythema has been stable now for greater than 1 year. Previous cytology negative. If changes at all then we will proceed with biopsy- Follow up in 6 months for next surveillan ce cystoscopy [id number] Demetrius Rothman MD _[facility] [address] [place] [address] 01/20/2025 10:50:00 01/26/2025 09:06:48 Malignant neoplasm of urinary bladder 833695372 C67.9 - S/p induction BCG (07/02/22 - 08/06/22)- Cystoscopy today without evidence of recurrence -Area of patchy erythema has been stable but now slight changes. Will proceed with biopsy- Follow up in 6 months for next surveillan ce cystoscopy Health Concerns Section Related Observation LastModified by Organization Detai ls LastModified Time None Recorded Concern Status LastModified by Organization Details LastModified Time None Recorded Advance Directives Directive None Recorded Payers Insurance Date Sequence Insurance Name Policy Number Policy Andres Covered Member ID Andres Member ID Guarantor Name 07/22/2024 1 [place] [id number] Florentino Godfrey [id number] Florentino Godfrey 07/22/2024 2 [place] [employer] Florentino Godfrey [id number] Florentino Godfrey 07/22/2024 2 [place] [employer] Florentino Godfrey [id number] Florentino Godfrey 07/22/2024 2 [place] [employer] Florentino Godfrey [id number] Florentino Godfrey 02/13/2025 1 [place] [employer] [place] [id number] Florentino Godfrey [id number] Florentino Godfrey 07/22/2024 2 [place] [facility] [facility] Florentino Godfrey [id number] Florentino Godfrey Notes Date Note Type Note Provider Name and Address Organization Details Recorded Time 09/18/2023 text/html 05/29/2022:71yoM with history of hematuria, [...] No interval history change. Demetrius Rothman MD [address] [place] [address],[address], [address], [facility] 09/18/2023 14:04:25 12/26/2023 text/html 05/29/2022:71yoM with [...] No interval history change. Demetrius Rothman MD [address] [facility] [facility],[address], [place], [address], [facility] 12/26/2023 17:00:33 04/14/2024 text/html 05/29/2022:71yoM with [...] interval history change. Demetrius Rothman MD [address] [facility],[address], [place], [address], [facility] 04/14/2024 16:16:32 07/22/2024 text/html 05/29/2022:71yoM [...] interval history change. Demetrius Rothman MD [address] [facility],[address], [place], [address], [facility] 07/22/2024 13:20:18 01/20/2025 text/html 05/29/2022:71yoM with history of hematuria, underwent [...] for surveillance cystoscopy. No interval history change. 01/20/2025:Here for f/u Tis Bladder Cancer s/p induction course of BCG. Here for surveillance cystoscopy. No interval history change. Demetrius Rothman MD [address] [facility],[address], [place], [address], [facility] 01/20/2025 13:48:53
--- OUTSIDE RECORDS SUMMARY | 2025-02-20 17:22 | XMS_ITS | Clinical Summary ---
Author Organization [facility] Address [address] , [address] [place] [address] Phone Care Team Providers Care Clinical Laboratory Service Teacher Name Role Phone [facility] Unavailable Unava ilable Conditions or Problems Problem Name Problem Code Onset Date Status Entry Date Provider Comment Standard Description Annotate Median neuropathy, right 108651973 (SNOMED CT) Active Bridger Rodriguez MD Median neuropathy Shoulder pain 62953374 (SNOMED CT) Active Bridger Rodriguez MD Pain of shoulder region CERVICAL DISC HERNIATION 594379449 (SNOMED CT) Active Randall Ash MD Prolapsed [...] Procedures Code Procedure Name Date Entry Date [id number]-[id number] Nerve Conduction 5-6 studies CPT-95085 EMG with NCS (5+ muscles) - 1 limb 01/02 CPT-38909 Motor NCS x 2 CPT-51072 Sensory NCS x 2 CPT-25292 EMG 1 limb Vital Signs No information available. Immunizations No information available. Advance Directives No information available.
== END 2025-02-19 10:54 | disposition home or self-care (01) ==
PROVIDERS: Emergency Provider Internal Medicine; PCP Family Medicine
DX: N39.0 Urinary tract infection, site not specified (principal)
CPT/HCPCS: 36415; 80048; 81001; 81003; 85025; 85610; 87086; 99283

== ENCOUNTER 2025-05-24 16:54 | Outpatient (CLI) | payer MEDICARE, BC, SELFPAY | END 2025-05-24 16:55 | disposition home or self-care (01) | LOC: FBOREF 16:54 | PROVIDERS: PCP Family Medicine; Visit Provider Family Medicine | DX: Z12.5 Encounter for screening for malignant neoplasm of prostate (principal) | CPT/HCPCS: G0103 ==

== ENCOUNTER 2025-08-04 07:36 | Outpatient (CLI) | payer MEDICARE, BC, SELFPAY ==
--- NOTE | 2025-08-04 08:00 | CRLHL7_ITS ---
For Patients: As a result of the Century Cures Act, medical imaging exams and procedure reports are released immediately into your electronic medical record. You may view this report before your referring provider. If you have questions, please contact your health care provider. INDICATION: Lung cancer screening. History of smoking. High risk patient with greater than 30 pack-year smoking history. TECHNIQUE: Low-dose lung cancer screening non-contrast CT chest. Dose reduction techniques were used. COMPARISON: 07/21/2024 FINDINGS: NODULES: No new nodules. LUNGS AND PLEURA: Interstitial thickening in a peripheral/lower lobe distribution bilaterally with chronic focal density in the right lower lobe measuring 19 millimeters. MEDIASTINUM: Visualized thyroid is normal. No adenopathy. CORONARY ARTERY CALCIFICATION: Moderate. LIMITED UPPER ABDOMEN: Unremarkable. MUSCULOSKELETAL: Postop changes right shoulder. IMPRESSION: Stable pulmonary fibrosis with chronic airspace density in the right lower lobe measuring 19 millimeters. LUNG-RADS CATEGORY: 2: Benign. RADIOLOGIST RECOMMENDATION: Continue annual screening, if eligible, with low-dose CT chest in 12 months. Please note that all CT scans at this facility use dose modulation, iterative reconstruction, and/or weight-based dosing when appropriate to reduce radiation dose to as low as reasonably achievable. Dictated by Florentino Vick MD @ 08/04/2025 10:02:39 AM (Electronically Signed)
== END 2025-08-04 07:37 | disposition home or self-care (01) ==
LOC: CT 07:36
PROVIDERS: PCP Family Medicine; Visit Provider Family Medicine
DX: Z12.2 Encounter for screening for malignant neoplasm of respiratory organs (principal); Z87.891 Personal history of nicotine dependence
CPT/HCPCS: 71271